=== PATIENT | male | born 1995 | race Caucasian/White ===

== ENCOUNTER 2019-01-06 00:07 | Emergency (ER) | payer BC, SELFPAY ==
[2019-01-06 00:09] VITALS: BP 142/95; PULSE 80; RESP 18; TEMP 37; O2SAT 97; BMI 39.4
--- NOTE | 2019-01-06 00:25 | ED.VISSUMM ---
- ER Visit Summary Date of Service: 01/06/19 Chief Complaint: Back pain History of Present Illness: The patient is a 23 M presenting with back pain. 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 This occurred just prior to arrival. He took no medication prior to arrival. He denies bowel or bladder incontinence. Denies numbness or weakness. He has pain with ambulation. Denies fever. Denies other complaints. Physical Examination: Vitals are stable. Patient is afebrile. Alert no acute distress. HEENT exam is unremarkable. Neck is supple. Lungs are clear and equal bilaterally. Heart is regular rate and rhythm. Abdomen is soft nontender nondistended. Back: Right paraspinal lumbar muscle tenderness, straight leg raise positive at 30 degrees on the right. Extremities are unremarkable. Skin is warm and dry. No focal neurologic deficit. Normal strength and sensation Remainder of exam is unremarkable. Emergency Department Course and Treatment: Patient was given Toradol, Norflex IM. He is given a prescription for Naprosyn and Flexeril. Advised to follow-up with his primary care physician. Advised return to ED for worsening complaints. Disposition: Discharge home Impression: Lumbar strain This note was generated with [employer] dictation software. It may contain incorrect words, spelling, and punctuation that were not noted in review of the chart prior to signing ED Disposition - Plan for ED Patient: Instructions: ED Sprain Strain Lumbar Prescriptions: Naproxen [Naprosyn] 500 mg PO BID PRN #20 tablet cycloBENZAPRine HCl [Flexeril] 10 mg PO TID PRN #20 tablet PRN Reason: Muscle Spasm Referrals: Eloy Lin III, MD [Primary Care Provider] -
[2019-01-06] MEDS: Ketorolac 60 MG/2 ML Vial IM (00:29)
--- NOTE | 2019-01-06 00:30 | ED.DEP ---
ED Disposition - Plan for ED Patient: Instructions: ED Sprain Strain Lumbar Prescriptions: Naproxen [Naprosyn] 500 mg PO BID PRN #20 tablet cycloBENZAPRine HCl [Flexeril] 10 mg PO TID PRN #20 tablet PRN Reason: Muscle Spasm Referrals: Eloy Lin III, MD [STAFF PHYSICIAN] -
[2019-01-06] MEDS: Orphenadrine 60 MG/2 ML Ampul IM (00:34)
[2019-01-06 01:07] VITALS: RESP 18
== END 2019-01-06 01:08 | disposition home or self-care (01) ==
PROVIDERS: Emergency Provider Emergency Medicine; Family Provider Family Medicine; PCP Family Medicine
DX: S39.012A Strain of muscle, fascia and tendon of lower back, initial encounter (principal); X50.1XXA Overexertion from prolonged static or awkward postures, initial encounter; Y93.E2 Activity, laundry; Y92.9 Unspecified place or not applicable
CPT/HCPCS: 96372; 99284

== ENCOUNTER 2025-06-18 13:48 | Emergency (ER) | payer BC, SELFPAY ==
[2025-06-18 13:49] VITALS: BP 161/92; PULSE 66; RESP 20; TEMP 36.2; O2SAT 100; BMI 42.2
--- NOTE | 2025-06-18 14:05 | EX.ED.GENINJ ---
HPI History of Present Illness Chief Complaint: Burn Detail of Chief Complaint: Lackey to the right hand Informant: patient Narrative Narrative: Patient presents to the emergency department with lackey to his right hand. Patient is right-hand dominant. Patient states that he was using his lawnmower and something got stuck in it so he tried to pull out the steak and accidentally touched part of the lawnmower that was hot and burned his fingers. Patient unsure of his last tetanus shot PFSH PFSH Home Medications Medication Instructions Recorded Last Taken Type cetirizine 10 mg capsule (Zyrtec) 10 mg PO DAILY 01/06/19 06/17/25 History hydrocodone-acetaminophen 5-325mg 1 tab PO Q4H PRN PRN Pain 2 days 06/18/25 Unknown Rx 5mg-325mg #10 TABLETS lisinopril 10 mg tablet 10 mg PO DAILY 06/18/25 06/17/25 History Allergy/AdvReac Type Severity Reaction Status Date / Time No Known Allergies Allergy Verified 06/18/25 13:50 Social History Smoking Status: Never smoker ROS ROS ED Review of Systems ROS Unobtainable: other Constitutional Constitutional ED: Reports lethargy; Denies chills, fever(s), sweats or weight loss Eyes Eyes: Denies blurry vision, change in vision or diplopia ENT ENT ED: Denies rhinorrhea or sore throat Cardiovascular Cardiovascular: Denies chest pain, orthopnea or racing heartbeat Respiratory/Chest Respiratory/Chest: Denies cough, dyspnea, dyspnea on exertion, orthopnea or sputum Gastrointestinal Gastrointestinal: Denies abdominal pain, diarrhea, nausea or vomiting Genitourinary Genitourinary ED: Denies dysuria, hematuria or urinary frequency Musculoskeletal Musculoskeletal: Denies arthralgias, back pain, myalgias or neck pain Integumentary Reports other Details: Lackey to right hand ; Denies abscess, Abrasions or rash Neurologic Neurologic: Denies headache(s) or weakness Psychiatric Psychiatric: Denies anxiety, depression or suicidal thoughts Endocrine Endocrinology: Denies polydipsia, polyphagia or polyuria Hematologic/Lymphatic Hematologic/Lymphatic: Denies easy bleeding, easy bruising or lymphadenopathy Allergic/Immunologic Allergic/Immunologic ED: Denies mouth swelling, tongue swelling or urticaria EXAM Physical Exam Const Vital Signs: 06/18/25 13:49 Temperature 97.2 F L Temperature Source Temporal Pulse Rate 66 Respiratory Rate 20 H Blood Pressure 161/92 H Blood Pressure Mean 115 Pulse Ox 100 Oxygen Delivery Method Room Air Positive well nourished and well developed General Appearance ED: well developed and NAD HEENT Reports TM's clear and moist mucous membranes normocephalic and atraumatic; Negative for trauma or tenderness Tympanic Membrane ED: Yes TM's clear Eyes PERRL and EOMs intact bilaterally General Eye ED: Negative for pale conjunctiva or scleral icterus Neck no lymphadenopathy, supple and no JVD General: Negative for tenderness Chest Wall inspection of chest normal and palpation of chest normal Chest: Negative for tenderness Resp normal respiratory effort and clear to auscultation bilaterally Effort and Inspection: Negative for respiratory distress or pain with movement Auscultation: Negative for rhonchi, wheezes or diminished lung sounds Cardio regular rate, regular rhythm, S1 normal heart sound, S2 normal heart sound and no murmurs Peripheral Pulses: pulses 2+ throughout GI normal to inspection, nondistended, normoactive bowel sounds, soft to palpation, non-tender, non-distended and no masses Back/Spine no CVA tenderness and no thoracic nor lumbar tenderness Extremity Extremity Narrative: Right hand-patient has areas of erythema involving the index long ring and small finger palmar aspect over areas of the distal and middle phalanx. Subtle blistering noted. Suspect first and second-degree type lackey. He has normal range of motion flexion extension of all digits. He has normal sensation. General Extremety ED: Negative for edema General Extremity: Negative for edema Neuro oriented x3, CN's II-XII intact bilaterally, no sensory deficits noted and gait normal Sensorium / Orientation: awake, alert, oriented to person, oriented to place and oriented to time Motor Exam: strength 5/5 throughout and strength abnormal Psych mental status grossly normal Skin no rashes or lesions noted and no wounds MDM MDM MDM Narrative Medical decision making narrative: Patient with lackey to his fingertips from lawnmower. Will give tetanus booster. Will apply bacitracin and ointment and clean dressing. Advised to follow-up with primary care physician 5 to 7 days. Will write a prescription for few [place] for pain. Discharge Plan Triage Chief Complaint: Burn ED Provider: Alyce Hedrick Dx/Rx/DC Orders Clinical Impression: Burn of finger of right hand Instructions: ED First- and Second-Degree Lackey ... Prescriptions: New hydrocodone-acetaminophen 5-325 mg tablet 1 tab PO Q4H PRN PRN (Reason: Pain) 2 Days Qty: 10 0RF No Action Zyrtec 10 MG capsule 10 mg PO DAILY lisinopril 10 mg tablet 10 mg PO DAILY Primary Care Provider: Quentin Mcleod Referrals: Quentin Mcleod MD [Primary Care Provider, Medical] - 5-7 Days Print Language: Kittitian Disposition Disposition: Home, Self Care
[2025-06-18 14:11] VITALS: BP 161/92; PULSE 66; RESP 20; TEMP 36.2; O2SAT 100
--- OUTSIDE RECORDS SUMMARY | 2025-06-18 14:40 | XMS RPT_ITS | CCD ---
Author Organization [facility] Care Team Providers Care Network Cabler Name Role Phone Quentin Mcleod MD Primary Care Provider Quentin Mcleod MD Primary Care Provider [facility]PART[facility] HEAD.Hallie MUNOZ Unavailable [facility]SP[facility] DEPART[facility] HEAD.ALEXANDER, Ariela A Unavailable [phone] ITZEL KIDD Referring Unavailable BRENDEN, QUENTIN Pollock Primary Care Unavailable [facility] TRANSPORT[facility] DEPARTMENT HEAD.ALEXANDER, Ariela A Unavailable [phone] WILLY ALEGRE Attending Unavailable HAAGEN, HALLIE Referring Unavailable BRENDEN, QUENTIN Pollock Primary Care Unavailable HAAGEN, HALLIE Referring Unavailable BRENDEN, QUENTIN Pollock Primary Care Unavailable HAAGEN, HALLIE Attending Unavailable BRENDEN, QUENTIN Pollock Primary Care Unavailable HAAGEN, HALLIE Attending Unavailable BRENDEN, QUENTIN Pollock Primary Care Unavailable HAAGEN, HALLIE Attending Unavailable BRENDEN, QUENTIN Pollock Primary Care Unavailable HAARTEM, HALLIE Attending Unavailable BRENDEN, QUENTIN Pollock Primary Care Unavailable BRENDEN, QUENTIN Pollock Referring Unavailable BRENDEN, QUENTIN Pollock Primary Care Unavailable BRENDEN, QUENTIN Pollock Attending Unavailable BRENDEN, QUENTIN Pollock Primary Care Unavailable ITZEL KIDD Attending Unavailable SELF Referring Unavailable BRENDEN, QUENTIN Pollock Primary Care Unavailable Allergies Allergy Classification Reported Allergen(s) Allergy Type Date of Onset Reaction(s) Facility (20 sources) Amoxicillin / Clavulanate; Translations: [AMOXICILLIN-POT CLAVULANATE] Drug Allergy 09-06-2005 [facility] Work Phone: (20 sources) Azithromycin; Translations: [AZITHROMYCIN] Drug Allergy 09-06-2005 [facility] Work Phone: (20 sources) House dust mite; Translations: [DUST MITES] Propensity to adverse reactions 09-06-2005 [facility] Work Phone: Medications Current Medications Medication Drug Class(es) Dates Sig (Normalized) Sig (Original) cetirizine hydrochloride 10 mg oral tablet (20 sources) Histamine-1 Receptor Antagonist Start: 11-27-2009 cetirizine hcl(ZYRTEC 10 MG TAB) Take one(1) tablet daily. 0 11/27/2009 Active Comment on above: Take one(1) tablet d aily. ibuprofen 200 mg oral tablet (8 sources) Nonsteroidal Anti-inflammatory Drug Start: 05-28-2024 take 200-400 mg by mouth every six hours as needed ibuprofen (MOTRIN) 200 mg tablet Take 1-2 tablets by mouth every 6 hours as needed for pain (Take with food.). 05/28/2024 Active lisinopril 10 mg oral tablet (1 source) Angiotensin Converting Enzyme Inhibitor Start: 12-11-2024 take 1 tablet by mouth once daily lisinopril (ZESTRIL) 10 mg tablet Indications: Primary hypertension Take 1 tablet by mouth once daily. 90 tablet 3 12/11/2024 Active Problems Active Problems Problem Classification Problem Date Documented Da te Episodic/Chronic Diseases of white blood cells (1 source) Leukocytosis; Translations: [Elevated white blood cell count, unspecified] Chronic Disorders of lipid metabolism (20 sources) Hyperlipidemia; Translations: [Hyperlipidemia, unspecified] Onset: 03-07-2019 Chronic Essential hypertension (1 source) Essential (primary) hypertension; Translations: [Primary hypertension] Onset: 12-11-2024 Chronic Genitourinary symptoms and ill-defined conditions (4 sources) Increased frequency of urination; Translations: [Frequency of micturition] Episodic Miscellaneous mental health disorders (14 sources) Chronic insomnia; Translations: [Psychophysiologic insomnia] Onset: 04-07-2018 Resolved: 05-27-2019 05-27-2019 Chronic Other circulatory disease (1 source) Elevated blood-pressure reading without diagnosis of hypertension; Translations: [Elevated blood-pressure reading, without diagnosis of hypertension] 10-16-2024 Episodic Other connective tissue disease (4 sources) Plantar fasciitis; Translations: [Plantar fascial fibromatosis] 05-08-2024 Episodic Other liver diseases (4 sources) Steatosis of liver; Translations: [Fatty (change of) liver, not elsewhere classified] 12-12-2023 Chronic Other liver diseases (1 source) Fatty (change of) liver, not elsewhere classified; Translations: [Hepatic steatosis] Onset: 07-19-2024 Chronic Other liver diseases (11 sources) Elevated liver enzymes level; Translations: [Abnormal levels of other serum enzymes] Episodic Other liver diseases (1 source) Abnormal levels of other serum enzymes; Translations: [Elevated liver enzymes] Onset: 07-19-2024 Episodic Other nutritional; endocrine; and metabolic disorders (6 sources) Obese class II; Translations: [Obesity, unspecified] Onset: 12-03-2018 12-03-2018 Chronic Other nutritional; endocrine; and metabolic disorders (1 source) Severe obesity; Translations: [Class 3 severe obesity with body mass index (BMI) of 45.0 to 49.9 in adult, unspecified obesity type, unspecified whether serious comorbidity present (HCC)] 10-16-2024 Chronic Other nutritional; endocrine; and metabolic disorders (1 source) Weight gain; Translations: [Abnormal weight gain] 11-01-2023 Episodic Other skin disorders (1 source) Disorder of the skin and subcutaneous tissue, unspecified; Translations: [Skin lesion] Onset: 12-11-2024 Episodic Other upper respiratory infections (3 sources) Viral upper respiratory tract infection; Translations: [Acute upper respiratory infection, unspecified] Episodic Residual codes; unclassified (1 source) Family history of diabetes mellitus; Translations: [Family history of diabetes mellitus] Episodic Screening and history of mental health and substance abuse codes (2 sources) Patient encounter status; Translations: [Encounter for screening examination for other mental health and behavioral disorders] 10-16-2024 Episodic Past or Other Problems Problem Classification Problem Date Documented Da te Episodic/Chronic Other connective tissue disease (1 source) Plantar fascial fibromatosis; Translations: [Plantar fasciitis] Onset: 06-25-2024 Episodic Other nutritional; endocrine; and metabolic disorders (17 sources) Body mass index 40+ - severely obese; Translations: [Body mass index (BMI) 40.0-44.9, adult] Onset: 12-03-2018 Resolved: 10-16-2024 11-01-2023 Chronic Other screening for suspected conditions (not mental disorders or infectious disease) (14 sources) Other specified abnormal findings of blood chemistry; Translations: [Other abnormal blood chemistry] Onset: 04-10-2018 Resolved: 05-27-2019 05-27-2019 Episodic Results Test Name Value Interpretation Reference Range [facility] EDUARDJUAN ([id number]) 1995 M Date Time Provider Department 01/08/25 QUENTIN MCLEOD [facility] During your visit today, we recorded the following information about you: Reyna Mccullough RN 01/08/2025 11:48 AM Signed Pt called in and reports he wanted to switch pharmacies. He states he is at [facility] right now, but would like to go to [facility] in [place]. I changed pharmacies in computer for Pt. I updated pharmacy in pharmacy section. I let Pt know to call [facility] and let them know he is moving to them and have them call [facility] and they can call and transfer the medication. Reyna Mccullough RN Allergies As of Date: 01/08/2025 Noted Allergy Reaction AUGMENTIN (AMOXICILLIN-POT CLAVUL*09/06/2005 DUST MITES 09/06/2005 ZITHROMAX (AZITHROMYCIN) 09/06/2005 Date Reviewed: 12/11/2024 Reviewed by: Mark Thao LPN - Fully Assessed Reason for Visit: Switch Pharmacies [Other] Prescriptions as of 01/08/2025 - lisinopril (ZESTRIL) 10 mg tablet Take 1 tablet by mouth once daily. - ibuprofen (MOTRIN) 200 mg tablet Take 1-2 tablets by mouth every 6 hours as needed for pain (Take with food.). - cetirizine hcl(ZYRTEC 10 MG TAB) Take one(1) tablet daily. Meds Comments as of 12/12/2007: Reviewed current med list, 12/12/2007. Kayy Navarro LPN Problem List As Of Date 01/08/2025 Noted Resolved Chronic insomnia [F51.04] 04/07/2018 05/27/2019 Elevated liver function tests [R79.89] 04/10/2018 05/27/2019 Adult BMI 40.0-44.9 kg/sq m (HCC) [Z68.41] 12/03/2018 10/16/2024 Hyperlipidemia with target LDL less than 130 [E*03/07/2019 Encounter Status:Closed by REYNA MCCULLOUGH on 01/08/25 [facility] CNOVon 12-11-2024 CNOV Office Visit (FAMPWS ) EDUARDSHERRIJUAN D ([id number]) 1995 M Date Time Provider Department 12/11/24 8:40 AM HALLIE FERNANDEZ [facility] During your visit today, we recorded the following information about you: Pulse Respiration Blood pressure 88/minute 16/minute 125/81 Hallie Fernandez APRN.CLOTH CARRIER 12/11/2024 1:48 PM Signed This is a 29 year old male who presents today with: Patient presents with: Recheck: 4 week BP check HISTORY OF PRESENT ILLNESS: Juan Moreau Eduard is a 29 year old male. Patient presents with: Recheck: 4 week BP check HTN Not monitoring BP at home, no BP cuff at home Will monitor BP at home from this visit Lisinopril 10 mg tab Pt. working on DASH and low sodium diet and exercises 4-5 time a week for an HR No CP/SOB/palpitations. Denies side effects to medication. Right leg lesion. Refers just found it a few weeks ago. Not painful, healing PAST MEDICAL HISTORY: PAST MEDICAL HISTORY Diagnosis Date Elevated liver function tests 04/10/2018 04/07/18: ALT 97 AST 44 ?fatty liver disease Obesity, Class III, BMI 40-49.9 (morbid obesity) 04/07/2018 PAST SURGICAL HISTORY Procedure Laterality Date ADENOIDECTOMY PRIMARY Adenoidectomy CIRCUMCISION TONSILLECTOMY PRIMARY/SECONDARY Tonsillectomy ALLERGIES Augmentin [Amoxicillin-Pot Clavulanate], Dust Mites, and Zithromax [Azithromycin] MEDICATIONS Current Outpatient Medications Medication Sig lisinopril (ZESTRIL) 10 mg tablet Take 1 tablet by mouth once daily. ibuprofen (MOTRIN) 200 mg tablet Take 1-2 tablets by mouth every 6 hours as needed for pain (Take with food.). cetirizine hcl(ZYRTEC 10 MG TAB) Take one(1) tablet daily. No current facility-administered medications for this visit. FAMILY HISTORY Problem Relation Age of Onset Asthma Maternal Grandmother other (MVP [Other]) Mother None Father None Maternal Grandfather Heart Paternal Grandmother Heart Paternal Grandfather None Sister None Brother Social History Tobacco Use Smoking status: Never Smokeless tobacco: Never Vaping Use Vaping status: Never Used Substance Use Topics Alcohol use: Yes Alcohol/week: 1.0 - 2.0 standard drink of alcohol Types: 1 - 2 Cans of Beer (12oz) per week Comment: Occassional, on the weekends Drug use: No EXAM: BP 125/81 Pulse 88 Resp 16 SpO2 98% PHYSICAL EXAM: General Appearance: Well appearing, alert, in no acute distress, well-hydrated, well nourished.. Skin: Skin color, texture, turgor normal, no suspicious rashes or lesions. Red papular lesion on the right anterior leg. Head: Normocephalic, no masses, lesions, tenderness or abnormalities. Eyes: Anicteric sclera. Extraocular movements are intact. . Ears: External ears normal, canals clear. Lungs: Lungs clear to auscultation. No wheezing, rhonchi, rales.. Heart: RRR without murmur, gallop, or rubs. No ectopy. Extremities: No deformities, edema, skin discoloration, clubbing or cyanosis. Good capillary refill. . Neurologic: Gait normal. ASSESSMENT/PLAN: 1. Primary hypertension - ICD9: 401.9, ICD10: I10 (primary diagnosis) - Controlled - Continue current medications - Recommend home blood pressure monitoring, to bring results to next visit - Encouraged sodium restriction, DASH or Mediterranean diet - Recommend regular aerobic exercise - LISINOPRIL 10 MG TABLET Recheck in 6 months. 2. Skin lesion - ICD9: 709.9, ICD10: L98.9 Appears as possible epidermal cyst. Continue to monitor area. If becomes painful or increases in size, notify provider. Discussed treatment plan and patient voices understanding. Patient's questions answered appropriately. Medications and potential side effects were discussed and patient voices understanding. Return to the office as scheduled or as needed for worsening/no improvement. Hallie Fernandez APRN.Hallie Chen APRN.CNP 12/11/2024 9:19 AM Signed 1 Follow up in 6 months for BP check up 2 Pt. will monitor BP at home with BP cuff 3 continue taking lisinopril 10 mg tab 4 follows DASH and low sodium diet Allergies As of Date: 12/11/2024 Noted Allergy Reaction AUGMENTIN (AMOXICILLIN-POT CLAVUL*09/06/2005 DUST MITES 09/06/2005 ZITHROMAX (AZITHROMYCIN) 09/06/2005 Date Reviewed: 12/11/2024 Reviewed by: Mark Thao LPN - Fully Assessed Reason for Visit: Recheck [92] Cmt: 4 week BP check Primary Visit Diagnosis:Primary hypertension [I10] Other Visit Diagnosis:Skin lesion [L98.9] Order(s):lisinopril (ZESTRIL) 10 mg tabletTake 1 tablet by mouth once daily.Disp: 90 tabletRfl: 3 Prescriptions as of 12/11/2024 - lisinopril (ZESTRIL) 10 mg tablet Take 1 tablet by mouth once daily. - ibuprofen (MOTRIN) 200 mg tablet Take 1-2 tablets by mouth every 6 hours as needed for pain (Take with food.). - cetirizine hcl(ZYRTEC 10 MG TAB) Take one(1) tablet daily. Meds Comments as of 5 (more content not included)... Normal [facility] CNOVon 11-13-2024 CNOV Office Visit (FAMPWS ) JUAN CHAPA ([id number]) 1995 M Date Time Provider Department 11/13/24 8:40 AM HALLIE FERNANDEZ During your visit today, we recorded the following information about you: Pulse Respiration Blood pressure 93/minute 16/minute 131/88 Hallie Fernandez APRN.CNP 11/13/2024 9:15 AM Signed Start the daily lisinopril. Recheck in 1 month. How to limit salt (sodium) to avoid swelling and hypertension: Keep your daily sodium intake to 2 3 4 grams Keep your daily sodium intake to 2000 3000 4000 mg DO: Read labels Keep a food diary for the first week of restriction - must include snacks! Bake or broil your foods DO NOT DRINK: V8 juice Tomato juice Canned soups DO NOT EAT: Canned food Tomato Sauce Barbecue Sauce Soy Sauce Pickles Prepared meats such as salami, corned beef, etc. Fettuccine Oh [place] con carne Beef burrito Potato salad Cottage cheese (both regular and low fat are high in sodium) [place] Two-egg omelet, ham and cheese Chop suey (not even homemade!) Macaroni and cheese (not even homemade!) Cheeseburger Fish Sticks TIPS: Plain [place] breast is OK as sandwich meat Look for low salt soups in the grocery store- usually a bit more expensive. MEAGAN Padilla Christy, APRN.CNP 11/13/2024 5:23 PM Signed This is a 29 year old male who presents today with: Patient presents with: Recheck: 4 week BP check HISTORY OF PRESENT ILLNESS: Juan Chapa is a 29 year old male. Patient presents with: Recheck: 4 week BP check HTN: Patient is compliant with meds n/a Monitors bp at home: No. Denies side effects: n/a. Chest pain: No. Dyspnea: No. Edema: No. Palpitations: No. Syncope: No. Headache: No. Dizziness: No. PAST MEDICAL HISTORY: PAST MEDICAL HISTORY Diagnosis Date Elevated liver function tests 04/10/2018 04/07/18: ALT 97 AST 44 ?fatty liver disease Obesity, Class III, BMI 40-49.9 (morbid obesity) 04/07/2018 PAST SURGICAL HISTORY Procedure Laterality Date ADENOIDECTOMY PRIMARY Adenoidectomy CIRCUMCISION TONSILLECTOMY PRIMARY/SECONDARY Tonsillectomy ALLERGIES Augmentin [Amoxicillin-Pot Clavulanate], Dust Mites, and Zithromax [Azithromycin] MEDICATIONS Current Outpatient Medications Medication Sig lisinopril (ZESTRIL) 10 mg tablet Take 1 tablet by mouth once daily. ibuprofen (MOTRIN) 200 mg tablet Take 1-2 tablets by mouth every 6 hours as needed for pain (Take with food.). cetirizine hcl(ZYRTEC 10 MG TAB) Take one(1) tablet daily. No current facility-administered medications for this visit. FAMILY HISTORY Problem Relation Age of Onset Asthma Maternal Grandmother other (MVP [Other]) Mother None Father None Maternal Grandfather Heart Paternal Grandmother Heart Paternal Grandfather None Sister None Brother Social History Tobacco Use Smoking status: Never Smokeless tobacco: Never Vaping Use Vaping status: Never Used Substance Use Topics Alcohol use: Yes Alcohol/week: 1.0 - 2.0 standard drink of alcohol Types: 1 - 2 Cans of Beer (12oz) per week Comment: Occassional, on the weekends Drug use: No EXAM: BP 131/88 Pulse 93 Resp 16 SpO2 99% PHYSICAL EXAM: General Appearance: Well appearing, alert, in no acute distress, well-hydrated, well nourished.. Skin: Skin color, texture, turgor normal, no suspicious rashes or lesions. Head: Normocephalic, no masses, lesions, tenderness or abnormalities. Eyes: Anicteric sclera. Extraocular movements are intact. . Lungs: Lungs clear to auscultation. No wheezing, rhonchi, rales.. Heart: RRR without murmur, gallop, or rubs. No ectopy. Extremities: No deformities, edema, skin discoloration, clubbing or cyanosis. Good capillary refill. . Neurologic: Gait normal. ASSESSMENT/PLAN: 1. Primary hypertension - ICD9: 401.9, ICD10: I10 - New diagnosis - Start lisinopril - Recommend home blood pressure monitoring, to bring results to next visit - Encouraged sodium restriction, DASH or Mediterranean diet - Recommend regular aerobic exercise and weight loss. - LISINOPRIL 10 MG TABLET Recheck in 1 month. Discussed treatment plan and patient voices understanding. Patient's questions answered appropriately. Medications and potential side effects were discussed and patient voices understanding. Return to the office as scheduled or as needed for worsening/no improvement. Hallie Fernandez APRN.CLOTH CARRIER Allergies As of Date: 11/13/2024 Noted Allergy Reaction AUGMENTIN (AMOXICILLIN-POT CLAVUL*09/06/2005 DUST MITES 09/06/2005 ZITHROMAX (AZITHROMYCIN) 09/06/2005 Date Reviewed: 11/13/2024 Reviewed by: Mark Thao LPN - Fully Assessed Reason for Visit: Recheck [92] Cmt: 4 week BP check Primary Visit Diagnosis:Primary hypertension [I10] Order(s):lisinopril (ZESTRIL) 10 mg tabletTake 1 tablet by m (more content not included)... Normal [facility] CBC W Auto Differential pane l (Bld)on 10-16-2024 Basophils (Bld) [#/Vol] 0.09 10*3/uL [facility] Basophils/100 WBC (Bld) 1.2 % [facility] Differential cell count method Nom (Bld) Auto [facility] Eosinophils (Bld) [#/Vol] 0.36 10*3/uL [facility] Eosinophils/100 WBC (Bld) 4.8 % [facility] Erythrocyte distribution width (RBC) [Ratio] 13.4 % 11.5 - 15.0 % [facility] Hematocrit (Bld) [Volume fraction] 46.1 % 39.0 - 51.0 % [facility] Hemoglobin (Bld) [Mass/Vol] 15.7 g/dL 13.0 - 17.0 g/dL [facility] Immature granulocytes (Bld) [#/Vol] [facility] Immature granulocytes/100 WBC (Bld) 0.1 % [facility] Lymphocytes (Bld) [#/Vol] 2.18 10*3/uL [facility] Lymphocytes/100 WBC (Bld) 29.3 % [facility] MCH (RBC) [Entitic mass] 31.1 pg 26.0 - 34.0 pg [facility] MCHC (RBC) [Mass/Vol] 34.1 g/dL 30.5 - 36.0 g/dL [facility] MCV (RBC) [Entitic vol] 91.3 fL 80.0 - 100.0 fL [facility] Monocytes (Bld) [#/Vol] 0.53 10*3/uL [facility] Monocytes/100 WBC (Bld) 7.1 % [facility] Neutrophils (Bld) [#/Vol] 4.27 10*3/uL [facility] Neutrophils/100 WBC (Bld) 57.5 % [facility] Nucleated RBC (Bld) [#/Vol] NINF [facility] Nucleated RBC/100 WBC (Bld) [Ratio] 0 % /100 WBC [facility] Platelet mean volume (Bld) [Entitic vol] 11.1 fL 9.0 - 12.7 fL [facility] Platelets (Bld) [#/Vol] 296 10*3/uL [facility] RBC (Bld) [#/Vol] 5.05 10*6/uL 4.20 - 6.0 0 m/uL [facility] WBC (Bld) [#/Vol] 7.44 10*3/uL [facility] Basophils (Bld) [#/Vol] 0.09 10*3/uL Normal <0.11 [facility] Comment on above: Order Comment: Speci men Type: BLOOD SPECIMENOrdering Facility: [facility] Address: [address] [place] [address] Performed By: #### 5 7021-8 ####[facility] LABIA [id number] [place] [address] [place] Basophils/100 WBC (Bld) 1.2 % Normal [facility] Comment on above: Order Comment: Speci men Type: BLOOD SPECIMENOrdering Facility: [facility] Address: [address] [place] [address] Performed By: #### 5 7021-8 ####[facility] LABCLIA [id number] [place] [address] [place] Differential cell count method Nom (Bld) Auto Normal [facility] Comment on above: Order Comment: Speci men Type: BLOOD SPECIMENOrdering Facility: [facility] Address: [address] [place] [address] Performed By: #### 5 7021-8 ####[facility] LABCLIA [id number] [address] [place] [address] [place] Eosinophils (Bld) [#/Vol] 0.36 10*3/uL Normal <0.46 [facility] Comment on above: Order Comment: Speci men Type: BLOOD SPECIMENOrdering Facility: [facility] Address: [address] [place] [address] Performed By: #### 5 7021-8 ####[facility] LABCLIA [id number] [address], [place] [address] [place] Eosinophils/100 WBC (Bld) 4.8 % Normal [facility] Comment on above: Order Comment: Speci men Type: BLOOD SPECIMENOrdering Facility: [facility] Address: [address] [place] [address] Performed By: #### 5 7021-8 ####[facility] LABCLIA [id number] [address], [place] [address] [place] Erythrocyte distribution width (RBC) [Ratio] 13.4 % Normal 11.5-15.0 [facility] Comment on above: Order Comment: Speci men Type: BLOOD SPECIMENOrdering Facility: [facility] Address: [address] [place] [address] Performed By: #### 5 7021-8 ####[facility] LABCLIA [id number] [address], [place] [address] [place] Hematocrit (Bld) [Volume fraction] 46.1 % Normal 39.0-51.0 [facility] Comment on above: Order Comment: Speci men Type: BLOOD SPECIMENOrdering Facility: [facility] Address: [address] [place] [address] Performed By: #### 5 7021-8 ####[facility] LABCLIA [id number] [address], [facility] [place] Hemoglobin (Bld) [Mass/Vol] 15.7 g/dL Normal 13.0-17.0 [facility] Comment on above: Order Comment: Speci men Type: BLOOD SPECIMENOrdering Facility: [facility] Address: [address] [place] [address] Performed By: #### 5 7021-8 ####[facility] LABCLIA [id number] [place] [id number] [place] Immature granulocytes (Bld) [#/Vol] 10*3/uL Normal <0.10 [facility] Comment on above: Order Comment: Speci men Type: BLOOD SPECIMENOrdering Facility: [facility] Address: [address] [place] [address] Performed By: #### 5 7021-8 ####[facility] LABCLIA [id number] [address], [place] [address] [place] Immature granulocytes/100 WBC (Bld) 0.1 % Normal [facility] Comment on above: Order Comment: Speci men Type: BLOOD SPECIMENOrdering Facility: [facility] Address: [address] [place] [address] Performed By: #### 5 7021-8 ####[facility] LABCLIA [id number] [place] [address] [place] Lymphocytes (Bld) [#/Vol] 2.18 10*3/uL Normal 1.00-4.00 [facility] Comment on above: Order Comment: Speci men Type: BLOOD SPECIMENOrdering Facility: [facility] Address: [address] [place] [address] Performed By: #### 5 7021-8 ####[facility] LABCLIA [id number] [place] [id number] [place] Lymphocytes/100 WBC (Bld) 29.3 % Normal [facility] Comment on above: Order Comment: Speci men Type: BLOOD SPECIMENOrdering Facility: [facility] Address: [address] [place] [address] Performed By: #### 5 7021-8 ####[facility]CL[facility] [id number] [place] [address] [place] MCH (RBC) [Entitic mass] 31.1 pg Normal 26.0-34.0 [facility] Comment on above: Order Comment: Speci men Type: BLOOD SPECIMENOrdering Facility: [facility] Address: [address] [place] [address] Performed By: #### 5 7021-8 ####[facility] [id number] [place] [address] [place] MCHC (RBC) [Mass/Vol] 34.1 g/dL Normal 30.5-36.0 [facility] Comment on above: Order Comment: Speci men Type: BLOOD SPECIMENOrdering Facility: [facility] Address: [address] [place] [address] Performed By: #### 5 7021-8 ####[facility] [id number] [place] [address] [place] MCV (RBC) [Entitic vol] 91.3 fL Normal 80.0-100.0 [facility] Comment on above: Order Comment: Speci men Type: BLOOD SPECIMENOrdering Facility: [facility] Address: [address] [place] [address] Performed By: #### 5 7021-8 ####[facility] [id number] [place] [address] [place] Monocytes (Bld) [#/Vol] 0.53 10*3/uL Normal <0.87 [facility] Comment on above: Order Comment: Speci men Type: BLOOD SPECIMENOrdering Facility: [facility] Address: [address] [place] [address] Performed By: #### 5 7021-8 ####[facility] [id number] [place] [address] [place] Monocytes/100 WBC (Bld) 7.1 % Normal [facility] Comment on above: Order Comment: Speci men Type: BLOOD SPECIMENOrdering Facility: [facility] Address: [address] [place] [address] Performed By: #### 5 7021-8 ####[facility] [id number] [address] [address] [place] Neutrophils (Bld) [#/Vol] 4.27 10*3/uL Normal 1.45-7.50 [facility] Comment on above: Order Comment: Speci men Type: BLOOD SPECIMENOrdering Facility: [facility] Address: [address] [place] [address] Performed By: #### 5 7021-8 ####[facility] [id number] [place] [address] [place] Neutrophils/100 WBC (Bld) 57.5 % Normal [facility] Comment on above: Order Comment: Speci men Type: BLOOD SPECIMENOrdering Facility: [facility] Address: [address] [place] [address] Performed By: #### 5 7021-8 ####[facility] [id number] [place] [address] [place] Nucleated RBC (Bld) [#/Vol] 10*3/uL Normal <0.01 [facility] Comment on above: Order Comment: Speci men Type: BLOOD SPECIMENOrdering Facility: [facility] Address: [address] [place] [address] Performed By: #### 5 7021-8 ####[facility] [id number] [place] [id number] [place] Nucleated RBC/100 WBC (Bld) [Ratio] 0.0 /100 WBC Normal [facility] Comment on above: Order Comment: Speci men Type: BLOOD SPECIMENOrdering Facility: [facility] Address: [address] [place] [address] Performed By: #### 5 7021-8 ####[facility] [id number] [address] [place] [address] [place] Platelet mean volume (Bld) [Entitic vol] 11.1 fL Normal 9.0-12.7 [facility] Comment on above: Order Comment: Speci men Type: BLOOD SPECIMENOrdering Facility: [facility] Address: [address] [place] [address] Performed By: #### 5 7021-8 ####[facility] [id number] [address] [place] [address] [place] Platelets (Bld) [#/Vol] 296 10*3/uL Normal 150-400 [facility] Comment on above: Order Comment: Speci men Type: BLOOD SPECIMENOrdering Facility: [facility] Address: [address] [place] [address] Performed By: #### 5 7021-8 ####[facility] LABIA [id number] [place] [address] [place] RBC (Bld) [#/Vol] 5.05 10*6/uL Normal 4.20-6.00 [facility] Comment on above: Order Comment: Speci men Type: BLOOD SPECIMENOrdering Facility: [facility] Address: [address] [place] [address] Performed By: #### 5 7021-8 ####[facility]CL[facility] [id number] [address], [facility] [place] WBC (Bld) [#/Vol] 7.44 10*3/uL Normal 3.70-11.00 [facility] Comment on above: Order Comment: Speci men Type: BLOOD SPECIMENOrdering Facility: [facility] Address: [address] [place] [address] Performed By: #### 5 7021-8 ####[facility]CL[facility] [id number] [place] [id number] [place] CNOVon 10-16-2024 CNOV Office Visit (FAMPWS ) EDUARDJUAN Prieto ([id number]) 1995 M Date Time Provider Department 10/16/24 1:00 PM [facility] During your visit today, we recorded the following information about you: Pulse Blood pressure Weight 87/minute 128/94 156 kg Quentin Mcleod MD 10/16/2024 1:26 PM Signed Patient presents with: Physical HPI: Patient presents today for office visit for physical. Seeing gi for his elevated liver enzymes. Work up shows fatty liver. Discussed avoiding etoh and weight loss to help. Bp is up on arrival. No symptoms MEDICATIONS: Current Outpatient Medications Medication Sig ibuprofen (MOTRIN) 200 mg tablet Take 1-2 tablets by mouth every 6 hours as needed for pain (Take with food.). cetirizine hcl(ZYRTEC 10 MG TAB) Take one(1) tablet daily. No current facility-administered medications for this visit. ALLERGIES: ALLERGIES Allergen Reactions Augmentin [Amoxicil* Dust Mites Zithromax [Azithrom* PAST MEDICAL HISTORY Diagnosis Date Elevated liver function tests 04/10/2018 04/07/18: ALT 97 AST 44 ?fatty liver disease Obesity, Class III, BMI 40-49.9 (morbid obesity) (HCC) 04/07/2018 PAST SURGICAL HISTORY Procedure Laterality Date ADENOIDECTOMY PRIMARY Adenoidectomy CIRCUMCISION TONSILLECTOMY PRIMARY/SECONDARY Tonsillectomy FAMILY HISTORY Problem Relation Age of Onset Asthma Maternal Grandmother other (MVP [Other]) Mother None Father None Maternal Grandfather Heart Paternal Grandmother Heart Paternal Grandfather None Sister None Brother Social History Tobacco Use Smoking status: Never Smokeless tobacco: Never Vaping Use Vaping status: Never Used Substance Use Topics Alcohol use: Yes Alcohol/week: 1.0 - 2.0 standard drink of alcohol Types: 1 - 2 Cans of Beer (12oz) per week Comment: Occassional, on the weekends Drug use: No Reviewed current medications, allergies, past medical history, surgical history, family history and social history today. REVIEW OF SYSTEMS GENERAL: No weight loss, malaise or fevers HEENT: Negative for frequent or significant headaches, No changes in hearing or vision, no nose bleeds or other nasal problems NECK: Negative for lumps, goiter, pain and significant neck swelling RESPIRATORY: Negative for cough, hemoptysis, wheezing, COPD, dyspnea or shortness of breath CARDIOVASCULAR: Negative for chest pain, leg swelling, hypertension, CHF or palpitations GI: No nausea, vomiting, or diarrhea : No history of dysuria, frequency or incontinence SKIN: Negative for lesions, rash, and itching HEMATOLOGY/LYMPHOLOGY: Negative for prolonged bleeding, bruising easily or swollen nodes NEURO: No history of headaches, syncope, paralysis, seizures or tremors All other reviewed and negative other than HPI. HEALTH MAINTENANCE: Reviewed health maintenance issues today and recommended the following in detail. Depression Screening Never done Anxiety Screening some recent anxiety with moving. VITALS: BP 128/94 Pulse 87 Wt (!) 156 kg (344 lb) SpO2 97% BMI 45.39 kg/m? Last 4 Encounter Wt Readings: Date: Wt: 10/16/2024 156 kg (344 lb) 07/12/2024 155.6 kg (343 lb) 05/08/2024 157.4 kg (347 lb) 12/12/2023 156.5 kg (345 lb) PHYSICAL EXAMINATION: General appearance: Well appearing, alert, in no acute distress, well-hydrated, well nourished. Skin: Skin color, texture, turgor normal, no suspicious rashes or lesions Head: Normocephalic, no masses, lesions, tenderness or abnormalities Eyes: Anicteric sclera. Pupils are equally round and reactive to light. Extraocular movements are intact. Ears: External ears normal, canals clear Nose/Sinuses: Nares normal, septum midline, mucosa normal, no drainage or sinus tenderness Oropharynx: Lips, mucosa, and tongue normal, teeth and gums normal, oropharynx normal Neck: Supple, no adenopathy; thyroid symmetric, normal size, no bruits Back: Normal exam Lungs: Lungs clear to auscultation. No wheezing, rhonchi, rales Heart: RRR without murmur, gallop, or rubs. No ectopy Abdomen: Normal abdominal exam, Abdomen soft, non-tender. Bowel sounds normal. No masses, organomegaly Extremities: No deformities, edema, skin discoloration, clubbing or cyanosis. Good capillary refill. Musculoskeletal: No joint swelling, deformity, or tenderness Peripheral pulses: Normal Neuro: Gait normal. Reflexes normal and symmetric. Sensation grossly intact. ASSESSMENT/PLAN: 1. Well adult exam - ICD9: V70.0, ICD10: Z00.00 (primary diagnosis) - Counseled on healthy diet and regular exercise 2. Encounter for screening examination for other mental health and behavioral disorders - ICD9: V79.8, ICD10: Z13.39 - ANXIETY SCREENING 3. Hyperlipidemia with target LDL less than 130 - ICD9: 272.4, ICD10: E78.5 - Control undetermined, due for labs - check labs. 4. Class (more content not included)... Normal [facility] Comprehensive metabolic 2000 panelon 10-16-2024 Albumin [Mass/Vol] 4.4 g/dL Normal 3.9-4.9 [facility] Comment on above: Order Comment: Speci men Type: BLOOD SPECIMENOrdering Facility: [facility] Address: [address] [place] [address] Performed By: #### 2 4331-1, 3, 92876-6 ####[facility] [id number] [place] [address] [place] ALP [Catalytic activity/Vol] 81 U/L Normal 38-113 [facility] Comment on above: Order Comment: Speci men Type: BLOOD SPECIMENOrdering Facility: [facility] Address: [address] [place] [address] Performed By: #### 2 4331-1, 3015-3, 68637-7 ####[facility] LABIA [id number] [place] [address] [place] ALT [Catalytic activity/Vol] 87 U/L High 10-54 [facility] Comment on above: Order Comment: Speci men Type: BLOOD SPECIMENOrdering Facility: [facility] Address: [address] [place] [address] Performed By: #### 2 4331-1, 3015-3, ####[facility]CLIA [id number] [place] [id number] [place] Anion gap [Moles/Vol] 12 mmol/L Normal 8-15 [facility] Comment on above: Order Comment: Speci men Type: BLOOD SPECIMENOrdering Facility: [facility] Address: [address] [place] [address] Performed By: #### 2 4331-1, 3, ####[facility]CL[facility] [id number] [place] [id number] [place] AST [Catalytic activity/Vol] 54 U/L High 14-40 [facility] Comment on above: Order Comment: Speci men Type: BLOOD SPECIMENOrdering Facility: [facility] Address: [address] [place] [address] Result Comment: Resu lts may be falsely increased due to interference from hemolysis. Suggest reorder as clinically indicated. Performed By: #### 2 4331-1, 3, ####[facility]CLIA [id number] [place] [id number] [place] Bilirubin [Mass/Vol] 0.9 mg/dL Normal 0.2-1.3 [facility] Comment on above: Order Comment: Speci men Type: BLOOD SPECIMENOrdering Facility: [facility] Address: [address] [place], [place] [address] Performed By: #### 2 4331-1, 3015-3, ####[facility] LABIA [id number] [address] [address] [place] Calcium [Mass/Vol] 9.5 mg/dL Normal 8.5-10.2 [facility] Comment on above: Order Comment: Speci men Type: BLOOD SPECIMENOrdering Facility: [facility] Address: [address] [place], [place] [address] Performed By: #### 2 4331-1, 3015-3, ####[facility]CLIA [id number] [address] [address] [place] Chloride [Moles/Vol] 102 mmol/L Normal 98-107 [facility] Comment on above: Order Comment: Speci men Type: BLOOD SPECIMENOrdering Facility: [facility] Address: [address] [place], [place] [address] Performed By: #### 2 4331-1, 3, ####[facility]CLIA [id number] [place] [id number] [place] CO2 [Moles/Vol] 24 mmol/L Normal 22-30 [facility] Comment on above: Order Comment: Speci men Type: BLOOD SPECIMENOrdering Facility: [facility] Address: [address] [place], [place] [address] Performed By: #### 2 4331-1, 3, ####[facility] LABIA [id number] [place] [address] [place] Creatinine [Mass/Vol] 0.87 mg/dL Normal 0.73-1.22 [facility] Comment on above: Order Comment: Speci men Type: BLOOD SPECIMENOrdering Facility: [facility] Address: [address] [place], [place] [address] Performed By: #### 2 4331-1, 3015-3, 37419-3 ####[facility] LABIA [id number] [address] [address] [place] Creatinine and Glomerular filtration rate.predicted panel (S/P/Bld) 120 mL/min/1.73m??? Normal >=60 [facility] Comment on above: Order Comment: Speci men Type: BLOOD SPECIMENOrdering Facility: [facility] Address: [address] [place] [address] Result Comment: Lana mated Glomerular Filtration Rate (eGFR) is calculated using the 2020 CKD-EPI creatinine equation. This equation utilizes serum creatinine, sex, and age as parameters. The creatinine assay has traceable calibration to isotope dilution-mass spectrometry. Refer to KDIGO guidelines for clinical interpretation. In patients with unstable renal function, e.g. those with acute kidney injury, the eGFR may not accurately reflect actual GFR. Performed By: #### 2 4331-1, 3015-3, ####[facility] LABCLIA [id number] [address] [address] [place] Glucose [Mass/Vol] 91 mg/dL Normal 74-99 [facility] Comment on above: Order Comment: Speci men Type: BLOOD SPECIMENOrdering Facility: [facility] Address: [address] [place] [address] Result Comment: The [place] Diabetes Association (ADA) provides guidance for cutoff values for fasting glucose and random glucose. The ADA defines fasting as no caloric intake for at least 8 hours. Fasting plasma glucose results between 100 to 125 mg/dL indicate increased risk for diabetes (prediabetes). Fasting plasma glucose results greater than or equal to 126 mg/dL meet the criteria for diagnosis of diabetes. In the absence of unequivocal hyperglycemia, results should be confirmed by repeat testing. In a patient with classic symptoms of hyperglycemia or hyperglycemic crisis, random plasma glucose results greater than or equal to 200 mg/dL meet the criteria for diagnosis of diabetes. Reference: Standards of Medical Care in Diabetes 2016, [place] [employer]. Diabetes Care. 2016.39(Suppl 1). Performed By: #### 2 4331-1, 3015-3, ####[facility] LABCLIA [id number] [address] [address] [place] Potassium [Moles/Vol] 4.6 mmol/L Normal 3.7-5.1 [facility] Comment on above: Order Comment: Speci men Type: BLOOD SPECIMENOrdering Facility: [facility] Address: [address] [place] [id number] Performed By: #### 2 4331-1, 3015-3, 66133-8 ####[facility] LABIA [id number] [address] [address] [place] Protein [Mass/Vol] 7.5 g/dL Normal 6.3-8.0 [facility] Comment on above: Order Comment: Speci men Type: BLOOD SPECIMENOrdering Facility: [facility] Address: [address] [place] [address] Performed By: #### 2 4331-1, 3015-3, ####[facility] LABIA [id number] [address] [address] [place] Sodium [Moles/Vol] 138 mmol/L Normal 136-144 [facility] Comment on above: Order Comment: Speci men Type: BLOOD SPECIMENOrdering Facility: [facility] Address: [address] [place] [address] Performed By: #### 2 4331-1, 3, ####[facility] [id number] [address] [address] [place] Urea nitrogen [Mass/Vol] 14 mg/dL Normal 9-24 [facility] Comment on above: Order Comment: Speci men Type: BLOOD SPECIMENOrdering Facility: [facility] Address: [address] [place] [address] Performed By: #### 2 4331-1, 3, 52128-2 ####[facility] LABIA [id number] [address] [address] [place] Lipid 1996 panelon 5 Cholesterol [Mass/Vol] 184 mg/dL Normal <200 [facility] Comment on above: Order Comment: Speci men Type: BLOOD SPECIMENOrdering Facility: [facility] Address: [address] [place], [place] [address] Result Comment: <200 mg/dL, Desirable 200-239 mg/dL, Borderline high >239 mg/dL, High Performed By: #### 2 4331-1, 3015-3, ####[facility] LABCLIA [id number] [facility] [place] [id number] [address] [place] Cholesterol in HDL [Mass/Vol] 43 mg/dL Normal >39 [facility] Comment on above: Order Comment: Speci men Type: BLOOD SPECIMENOrdering Facility: [facility] Address: [address] [place] [address] Result Comment: 40-5 9 mg/dL, Acceptable >59 mg/dL, High: Negative risk factor for coronary heart disease <40 mg/dL, Low: Positive risk factor for coronary heart disease Performed By: #### 2 4331-1, 3015-09, ####[facility]CL[facility] [id number] [facility] [address] [place] [address] [place] Cholesterol in LDL [Mass/Vol] 108 mg/dL High <100 [facility] Comment on above: Order Comment: Reneai men Type: BLOOD SPECIMENOrdering Facility: [facility] Address: [address] [place] [address] Result Comment: <100 mg/dL, Optimal 100-129 mg/dL, Near optimal/above optimal 130-159 mg/dL, Borderline high 160-189 mg/dL, High >189 mg/dL, Very high Secondary prevention optimal LDL Cholesterol levels are recommended to be < 70 mg/dL Performed By: #### 2 4331-1, 3015-09, ####[facility] LABCLIA [id number] [facility] [place] [id number], [place] [address] [facility] [place] Cholesterol in LDL/Cholesterol in HDL [Mass ratio] 2.51 {ratio} Normal <2.54 [facility] Comment on above: Order Comment: Speci men Type: BLOOD SPECIMENOrdering Facility: [facility] Address: [address] [place] [address] Result Comment: Refe rence: 1. National Cholesterol Education Program ATP III Guideline At-A-Glance Quick Desk Reference: National Heart, Lung, and Blood [place]. National Institutes of Health. 2001: NIH Publication No. 01-3305. 2. An International Atherosclerosis Society position paper: global recommendations for the management of dyslipidemia: executive summary, Atherosclerosis. 2014: 232(2):410-413. Performed By: #### 2 4331-1, 3015-3, ####[facility] LABCLIA [id number] [address] [place] [address] [place] Cholesterol in VLDL [Mass/Vol] 33 mg/dL High <30 [facility] Comment on above: Order Comment: Speci men Type: BLOOD SPECIMENOrdering Facility: [facility] Address: [address] [place] [address] Performed By: #### 2 4331-1, 3015-3, ####[facility] LABCLIA [id number] [address] [address] [place] Cholesterol non HDL [Mass/Vol] 141 mg/dL High <130 [facility] Comment on above: Order Comment: Speci men Type: BLOOD SPECIMENOrdering Facility: [facility] Address: [address] [place] [address] Result Comment: <130 mg/dL, Optimal 130-159 mg/dL, Near optimal/above optimal 160-189 mg/dL, Borderline high 190-219 mg/dL, High >219 mg/dL, Very high Secondary prevention optimal non HDL Cholesterol levels are recommended to be <100 mg/dL Performed By: #### 2 4331-1, 3015-3, ####[facility] LABCLIA [id number] [address] [place] [address] [place] Cholesterol.total/Chol esterol in HDL [Mass ratio] 4.28 {ratio} Normal <5.10 [facility] Comment on above: Order Comment: Speci men Type: BLOOD SPECIMENOrdering Facility: [facility] Address: [address] [place] [id number] Performed By: #### 2 4331-1, 3015-3, ####[facility] LABCLIA [id number] [facility] [address] [place] [address] [place] FASTING TIME 12 hrs Normal [facility] Comment on above: Order Comment: Speci men Type: BLOOD SPECIMENOrdering Facility: [facility] Address: [address] [place], [place] [address] Performed By: #### 2 4331-1, 3016-3, 95872-2 ####[facility]CLIA [id number] [facility] [address] [place] [address] [place] Triglyceride [Mass/Vol] 163 mg/dL High <150 [facility] Comment on above: Order Comment: Speci men Type: BLOOD SPECIMENOrdering Facility: [facility] Address: [address] [place] [address] Result Comment: <150 mg/dL, Normal 150-199 mg/dL, Borderline high 200-499 mg/dL, High >499 mg/dL, Very high Performed By: #### 2 4331-1, 6-3, ####[facility] LABIA [id number] [address] [place] [address] [place] TSH SerPl-aCncon 10-16-2024 TSH Qn 1.620 m[IU]/L Normal 0.270-4.200 [facility] Comment on above: Order Comment: Speci men Type: BLOOD SPECIMENOrdering Facility: [facility] Address: [address] [place] [address] Performed By: #### 2 4331-1, 6-3, ####[facility] LABCLIA [id number] [address] [place] [address] [place] Hepatic function 2000 panelo n 07-19-2024 Albumin [Mass/Vol] 4.1 g/dL Normal 3.2-5.0 [facility] Comment on above: Order Comment: Speci men Type: BLOOD SPECIMEN [facility] Address: [address] [place] [address] Performed By: #### 2 4325-3 #### [facility] CLIA [id number] [address] [place], [place] [address] [place] ALP [Catalytic activity/Vol] 85 U/L Normal 45-117 [facility] Comment on above: Order Comment: Speci men Type: BLOOD SPECIMEN [facility] Address: [address] [place] [address] Performed By: #### 2 4325-3 #### [facility] CLIA [id number] [address] [place] [address] [place] ALT [Catalytic activity/Vol] 105 U/L High 13-61 [facility] Comment on above: Order Comment: Speci men Type: BLOOD SPECIMEN [facility] Address: [address] [place] [address] Result Comment: Resu lts may be falsely depressed after the administration of Sulfasalazine and/or Sulfapyridine. Performed By: #### 2 4325-3 #### [facility] CLIA [id number] [address] [place] [address] [place] AST [Catalytic activity/Vol] 46 U/L High 8-34 [facility] Comment on above: Order Comment: Speci men Type: BLOOD SPECIMEN [facility] Address: [address] [place] [address] Result Comment: Resu lts may be falsely depressed after the administration of Sulfasalazine and/or Sulfapyridine. Performed By: #### 2 4325-3 #### [facility] CLIA [id number] [address] [place] [address] [place] Bilirubin [Mass/Vol] 1.0 mg/dL Normal 0.2-1.0 [facility] Comment on above: Order Comment: Speci men Type: BLOOD SPECIMEN Ordering Facility: [facility] Address: [address] [place] [address] Performed By: #### 2 4325-3 #### [facility] CLIA [id number] [address] [place] [address] [place] Bilirubin.conjugated [Mass/Vol] 0.3 mg/dL Normal 0.0-0.4 [facility] Comment on above: Order Comment: Speci men Type: BLOOD SPECIMEN Ordering Facility: [facility] Address: [address] [place] [address] Performed By: #### 2 4325-3 #### [facility] CLIA [id number] [address] [place] [address] [place] Protein [Mass/Vol] 7.9 g/dL Normal 6.0-8.5 [facility] Comment on above: Order Comment: Speci men Type: BLOOD SPECIMEN Ordering Facility: [facility] Address: [address] [place] [address] Performed By: #### 2 4325-3 #### [facility] CLIA [id number] [address] [place], [place] [id number] [place] LIVER FIBROSIS AND ACTIVITYo n 07-19-2024 [id number]-[id number] [Mass/Vol] 147 mg/dL Normal 80-290 [facility] Comment on above: Order Comment: Speci men Type: BLOOD SPECIMEN Ordering Facility: [facility] Address: [address] [place] [address] Performed By: #### L IVFIB #### [facility] CLIA [id number] [address] [place] [address] [place] ALT [Catalytic activity/Vol] 99 U/L High 10-50 [facility] Comment on above: Order Comment: Speci men Type: BLOOD SPECIMEN Ordering Facility: [facility] Address: [address] [place] [address] Performed By: #### L IVFIB #### [facility] CLIA [id number] [address] [place] [address] [place] Apolipoprotein A-I [Mass/Vol] 154 mg/dL Normal >114 [facility] Comment on above: Order Comment: Speci men Type: BLOOD SPECIMEN Ordering Facility: [facility] Address: [address] [place] [address] Performed By: #### L IVFIB #### [facility] CLIA [id number] [address] [place] [address] [place] Bilirubin [Mass/Vol] 0.9 mg/dL Normal 0.2-1.3 [facility] Comment on above: Order Comment: Speci men Type: BLOOD SPECIMEN Ordering Facility: [facility] Address: [address] [place] [address] Performed By: #### L IVFIB #### [facility] CLIA [id number] [address] [place] [address] [place] FIBROSIS INTERPRETATION No Fibrosis Normal [facility] Comment on above: Order Comment: Speci men Type: BLOOD SPECIMEN Ordering Facility: [facility] Address: [address] [place] [address] Result Comment: Fibr osis Interpretation Table: FibroTest Score: >=0 and <=0.21 - Metavir Score: F0 No Fibrosis FibroTest Score: >0.21 and <=0.27 - Metavir Score: F0-F1 No Fibrosis FibroTest Score: >0.27 and <=0.31 - Metavir Score: F1 Minimal Fibrosis FibroTest Score: >0.31 and <=0.48 - Metavir Score: F1-F2 Minimal Fibrosis FibroTest Score: >0.48 and <=0.58- Metavir Score: F2 Moderate Fibrosis FibroTest Score: >0.58 and <=0.72 - Metavir Score: F3 Advanced Fibrosis FibroTest Score: >0.72 and <=0.74 - Metavir Score: F3-F4 Advanced Fibrosis FibroTest Score: >0.74 and <=1.00- Metavir Score: F4 Severe Fibrosis Performed By: #### L IVFIB #### [facility] CLIA [id number] [address] [place] [address] [place] Fibrosis stage Ql F0 Normal [facility] Comment on above: Order Comment: Speci men Type: BLOOD SPECIMEN Ordering Facility: [facility] Address: [address] [place] [address] Performed By: #### L IVFIB #### [facility] CLIA [id number] [address] [place] [address] [place] Gamma glutamyl transferase [Catalytic activity/Vol] 32 U/L Normal 10-71 [facility] Comment on above: Order Comment: Speci men Type: BLOOD SPECIMEN Ordering Facility: [facility] Address: [address] [place] [address] Performed By: #### L IVFIB #### [facility] CLIA [id number] [address] [place] [address] [place] Haptoglobin [Mass/Vol] 185 mg/dL Normal 31-238 [facility] Comment on above: Order Comment: Speci men Type: BLOOD SPECIMEN Ordering Facility: [facility] Address: [address] [place] [address] Performed By: #### L IVFIB #### [facility] CLIA [id number] [address] [place] [address] [place] NECROINFLAM ACTIVITY INTERP Minimal Activity Normal [facility] Comment on above: Order Comment: Speci men Type: BLOOD SPECIMEN Ordering Facility: [facility] Address: [address] [place] [address] Result Comment: Necr oinflammatory Activity Interpretation Table: ActiTest Score: >=0 and <=0.17 - Metavir Score: A0 No activity ActiTest Score: >0.17 and <=0.29 - Metavir Score: A0-A1 No activity ActiTest Score: >0.29 and <=0.36 - Metavir Score: A1 Minimal activity ActiTest Score: >0.36 and <=0.52 - Metavir Score: A1-A2 Minimal activity ActiTest Score: >0.52 and <=0.60 - Metavir Score: A2 Significant activity ActiTest Score: >0.60 and <=0.62 - Metavir Score: A2-A3 Significant activity ActiTest Score: >0.62 and <=1.00 - Metavir Score: A3 Severe activity Performed By: #### L IVFIB #### [facility] CLIA [id number] [address] [place] [address] [place] Necroinflammatory activity grade Ql A1-A2 [address] [facility] Comment on above: Order Comment: Speci men Type: BLOOD SPECIMEN Ordering Facility: [facility] Address: [address] [place] [address] Performed By: #### L IVFIB #### [facility] CLIA [id number] [address] [place] [address] [place] CNOVon 07-12-2024 CNOV Office Visit ([facility] ) JUAN CHAPA ([id number]) 1995 Date Time Provider Department 07/12/24 9:15 AM ITZEL KIDD [facility] During your visit today, we recorded the following information about you: Pulse Blood pressure Weight Height 80/minute 126/84 155.6 kg 1.854 m Itzel Kidd, TRANSPORTATION DEPARTMENT HEAD.[facility] 07/12/2024 9:15 AM Signed CHIEF COMPLAINT: Patient presents with: Elevated LFT's: Labs 12/14/23 HPI Juan Chapa is a 28 year old male here today for Elevated LFT's (Labs 12/14/23). Liver fibrosis panel showed F0 and Fibroscan showed kPa 23.2 with CAP 313. He did not want to get a liver biopsy at the time. Liver work up for autoimmune causes was negative. Currently he is feeling well. Denies any abdominal pain, n/v, jaundice, easy bruising or bleeding. He has lost a couple pounds. He has cut out alcohol. Current Outpatient Medications Medication Sig ibuprofen (MOTRIN) 200 mg tablet Take 1-2 tablets by mouth every 6 hours as needed for pain (Take with food.). cetirizine hcl(ZYRTEC 10 MG TAB) Take one(1) tablet daily. No current facility-administered medications for this visit. ALLERGIES Allergen Reactions Augmentin [Amoxicil* Dust Mites Zithromax [Azithrom* Social History Tobacco Use Smoking status: Never Smokeless tobacco: Never Vaping Use Vaping status: Never Used Substance Use Topics Alcohol use: Yes Alcohol/week: 1.0 - 2.0 standard drink of alcohol Types: 1 - 2 Cans of Beer (12oz) per week Comment: Occassional, on the weekends Drug use: No PAST MEDICAL HISTORY Diagnosis Date Elevated liver function tests 04/10/2018 04/07/18: ALT 97 AST 44 ?fatty liver disease Obesity, Class III, BMI 40-49.9 (morbid obesity) (HCC) 04/07/2018 PAST SURGICAL HISTORY Procedure Laterality Date ADENOIDECTOMY PRIMARY Adenoidectomy CIRCUMCISION TONSILLECTOMY PRIMARY/SECONDARY Tonsillectomy FAMILY HISTORY Problem Relation Age of Onset Asthma Maternal Grandmother other (MVP [Other]) Mother None Father None Maternal Grandfather Heart Paternal Grandmother Heart Paternal Grandfather None Sister None Brother REVIEW OF SYSTEMS Review of Systems All other systems reviewed and are negative. PHYSICAL EXAM Ht 6' 1" (1.85m) Wt 343 lb (155.6kg) BMI 45.26 kg/(m2). Physical Exam Constitutional: Appearance: Normal appearance. He is morbidly obese. HENT: Head: Normocephalic and atraumatic. Eyes: General: No scleral icterus. Cardiovascular: Rate and Rhythm: Normal rate and regular rhythm. Heart sounds: Normal heart sounds. Pulmonary: Breath sounds: Normal breath sounds. Abdominal: General: Abdomen is protuberant. Bowel sounds are normal. There is no distension. Palpations: Abdomen is soft. Tenderness: There is no abdominal tenderness. There is no guarding or rebound. Skin: General: Skin is warm and dry. Coloration: Skin is not jaundiced. Neurological: Mental Status: He is alert and oriented to person, place, and time. Psychiatric: Mood and Affect: Mood normal. Behavior: Behavior normal. ASSESSMENT: (R74.8) Elevated liver enzymes (primary encounter diagnosis) (K76.0) Hepatic steatosis 1. Hepatic steatosis - we discussed liver biopsy (risks, benefits) in detail and he would like to hold off for now and see what the repeat labs show first. - continue with weight loss efforts, increased exercise, and dietary changes - HEPATIC FUNCTION PNL; Future - LIVER FIBROSIS AND ACTIVITY; Future 2. Elevated liver enzymes - HEPATIC FUNCTION PNL; Future - LIVER FIBROSIS AND ACTIVITY; Future Follow up in office 1 year Itzel Kidd APRN.CNP July 12, 2024 9:13 AM Referring Provider: SELF [200] Allergies As of Date: 07/12/2024 Noted Allergy Reaction AUGMENTIN (AMOXICILLIN-POT CLAVUL*09/06/2005 DUST MITES 09/06/2005 ZITHROMAX (AZITHROMYCIN) 09/06/2005 Date Reviewed: 07/12/2024 Reviewed by: Itzel Kidd APRN.CNP - Fully Assessed Reason for Visit: Elevated LFT's [Other] Cmt: Labs 12/14/23 Primary Visit Diagnosis:Elevated liver enzymes [R74.8] Other Visit Diagnosis:Hepatic steatosis [K76.0] Order(s):HEPATIC FUNCTION PNL [SQHFP] Order #: [id number] FUTURE LIVER FIBROSIS AND ACTIVITY [SQLIVFIB] Order #: [id number] FUTURE Prescriptions as of 07/12/2024 - ibuprofen (MOTRIN) 200 mg tablet Take 1-2 tablets by mouth every 6 hours as needed for pain (Take with food.). - cetirizine hcl(ZYRTEC 10 MG TAB) Take one(1) tablet daily. Meds Comments as of 12/12/2007: Reviewed current med list, 12/12/2007. Kayy Navarro LPN Problem List As Of Date 07/12/2024 Noted Resolved Chronic insomnia [F51.04] 04/07/2018 05/27/2019 Elevated liver function tests [R79.89] 04/10/2018 05/27/2019 Adult BMI 40.0-44.9 kg/sq m (HCC) [Z68.41] 12/03/2018 Hyperlipidemia with target LDL less than 130 [E*03/07/2019 Level of Service: OFFICE/OUTPATIENT (more content not included)... Normal [facility] CNOVon 06-25-2024 CNOV Office Visit (PODIWS ) JUAN CHAPA ([id number]) 1995 M Date Time Provider Department 06/25/24 10:45 AM WILLY ALEGRE During your visit today, we recorded the following information about you: Amina Aguero LPN 06/25/2024 11:12 AM Signed AMB ROOMING INTAKE FLOWSHEET DATA Pain Pain Level: 6 Pain Location: Foot-Left Description: Aching Duration Amount of Time: 1 Duration Units: Minutes Frequency: Intermittent Intervention/Comfort measure: Medication Patient presents with: Left Foot - New, Pain, Numbness FELIX Shelby Matthew 06/25/2024 11:12 AM Signed Consultation requested by Dr. Fernandez for an opinion regarding left heel pain. My final recommendations will be communicated back to the requesting physician by way of shared Medical record or letter to requesting physician via US mail. Initial Podiatric Office Visit: Chief Complaint: This 28 year old male who presents with chief complaint:left heel pain HPI Patient presents to clinic for evaluation of left foot For the past month, he has been experiencing pain in the left heel. The pain is most severe following periods of rest (when he gets up and starts walking) As he starts walking, the pain will lessen Currently, managing the pain with ankle brace, taking ibuprofen, some stretching. Current treatment does provide some relief. PAIN EVALUATION 06/18/2024 1007 Pain Level: 6 Pain Location: Foot-Left Description: Aching Duration Amount of Time: 1 Duration Units: Minutes Frequency: Intermittent Intervention/Comfort measure: Medication Hemoglobin A1C (%) Date Value 08/23/2022 5.4 PCP: Quentin Mcleod MD PAST MEDICAL HISTORY Diagnosis Date Elevated liver function tests 04/10/2018 04/07/18: ALT 97 AST 44 ?fatty liver disease Obesity, Class III, BMI 40-49.9 (morbid obesity) (HCC) 04/07/2018 Current Outpatient Medications Medication Sig ibuprofen (MOTRIN) 200 mg tablet Take 1-2 tablets by mouth every 6 hours as needed for pain (Take with food.). cetirizine hcl(ZYRTEC 10 MG TAB) Take one(1) tablet daily. No current facility-administered medications for this visit. ALLERGIES Allergen Reactions Augmentin [Amoxicil* Dust Mites Zithromax [Azithrom* PAST SURGICAL HISTORY Procedure Laterality Date ADENOIDECTOMY PRIMARY Adenoidectomy CIRCUMCISION TONSILLECTOMY PRIMARY/SECONDARY Tonsillectomy FAMILY HISTORY Problem Relation Age of Onset Asthma Maternal Grandmother other (MVP [Other]) Mother None Father None Maternal Grandfather Heart Paternal Grandmother Heart Paternal Grandfather None Sister None Brother Social History Tobacco Use Smoking status: Never Smokeless tobacco: Never Vaping Use Vaping status: Never Used Substance Use Topics Alcohol use: Yes Alcohol/week: 1.0 - 2.0 standard drink of alcohol Types: 1 - 2 Cans of Beer (12oz) per week Comment: Occassional, on the weekends Drug use: No REVIEW OF SYSTEMS GENERAL: Negative for Malaise, significant weight loss, fever RESPIRATORY: Negative for cough, wheezing and shortness of breath CARDIOVASCULAR: Negative for chest pain, leg swelling and palpitations GI: Negative for abdominal discomfort, blood in stools or black stools and change in bowel habits : Negative for dysuria, frequency and incontinence MUSCULOSKELETAL: Negative for joint pain or swelling, back pain, and muscle pain. SKIN: Negative for lesions, rash, and itching. HEMATOLOGY/LYMPHOLOGY Negative for prolonged bleeding, bruising easily, and swollen nodes. ENDOCRINE: Negative for cold or heat intolerance, polyuria, polydipsia and goiter. NEURO: negative Physical Exam: Constitutional: Pt is a well developed 28 year old male who is alert, oriented and cooperative Eyes: Following during examination. No redness or drainage. Respiratory: RR normal and nonlabored. Even breathing. No evidence of distress or shortness of breath. Psychology: Patient is engaged during conversation. Normal affect and mood. Does not appear depressed or anxious during encounter. Vascular: Dorsalis pedis and posterior tibial pulses palpable as b/l Capillary Fill time < 5 seconds to digits 1-5 b/l Skin temperature warm to warm proximal to distal b/l Hair growth present to digits Neurological: intact light touch/epicritic sensation b/l intact protective sensation no significant neurological deficits Dermatological: Nails 1-5 b/l appear normal. Webspaces clean and dry 1-4 b/l. Skin appears well hydrated and supple. good color, texture, turgor. No open lesions present. No callosities present. Musculoskeletal/Orthop aedic: Patient has pain to palpation of left plantar medial calcaneal tubercle Foot type is slightly pronated structurally AJ ROM is full with knee extended and flexed 1st MPJ is full when loaded and no pain or crepi (more content not included)... Normal [facility] CNPNon 06-03-2024 CNPN Telephone (FAMPWS) JUAN CHAPA ([id number]) 1995 M Date Time Provider Department 06/03/24 CHNIYERE BOYKIN [facility] During your visit today, we recorded the following information about you: Chinyere Boykin PA-C 06/03/2024 8:38 AM Signed Let patient know that xray confirm smal heel spur. Continue with seeing podiatry. Jose Schwartz LPN 06/03/2024 9:02 AM Signed Left message for pt to contact office. FELIX Weinberg Sherrie, RN 06/03/2024 11:27 AM Signed Patient returned call and given provider's message below and patient verbalized understanding. Sandra Menendez RN Allergies As of Date: 06/03/2024 Noted Allergy Reaction AUGMENTIN (AMOXICILLIN-POT CLAVUL*09/06/2005 DUST MITES 09/06/2005 ZITHROMAX (AZITHROMYCIN) 09/06/2005 Date Reviewed: 05/28/2024 Reviewed by: Mark Thao LPN - Fully Assessed Reason for Visit: Results [95] Prescriptions as of 06/03/2024 - ibuprofen (MOTRIN) 200 mg tablet Take 1-2 tablets by mouth every 6 hours as needed for pain (Take with food.). - cetirizine hcl(ZYRTEC 10 MG TAB) Take one(1) tablet daily. Meds Comments as of 12/12/2007: Reviewed current med list, 12/12/2007. Kayy Olsoner [facility] Problem List As Of Date 06/03/2024 Noted Resolved Chronic insomnia [F51.04] 04/07/2018 05/27/2019 Elevated liver function tests [R79.89] 04/10/2018 05/27/2019 Adult BMI 40.0-44.9 kg/sq m (HCC) [Z68.41] 12/03/2018 Hyperlipidemia with target LDL less than 130 [E*03/07/2019 Encounter Status:Closed by SIA MENENDEZ on 06/03/24 [facility] CNOVon 05-28-2024 CNOV Office Visit (FAMPWS ) JUAN CHAPA ([id number]) 1995 Date Time Provider Department 05/28/24 9:40 AM HALLIE FERNANDEZ During your visit today, we recorded the following information about you: Pulse Respiration Blood pressure 83/minute 16/minute 138/96 Hallie Fernandez APRN.CLOTH CARRIER 05/29/2024 10:25 PM Signed This is a 28 year old male who presents today with: Patient presents with: Recheck: Follow up- L foot pain, continuing HISTORY OF PRESENT ILLNESS: Juan Chapa is a 28 year old male. Patient presents with: Recheck: Follow up- L foot pain, continuing Pt presents today with complaint of ongoing left foot pain. He was seen on 05/08/24. Dx w/ plantar fasciitis. He did a course of anti-inflammatories and ice. He also did the rolling. He also started wearing a splint. Continues with pain in the left foot, although a little better today. PAST MEDICAL HISTORY: PAST MEDICAL HISTORY Diagnosis Date Elevated liver function tests 04/10/2018 04/07/18: ALT 97 AST 44 ?fatty liver disease Obesity, Class III, BMI 40-49.9 (morbid obesity) (HCC) 04/07/2018 PAST SURGICAL HISTORY Procedure Laterality Date ADENOIDECTOMY PRIMARY Adenoidectomy CIRCUMCISION TONSILLECTOMY PRIMARY/SECONDARY Tonsillectomy ALLERGIES Augmentin [Amoxicillin-Pot Clavulanate], Dust Mites, and Zithromax [Azithromycin] MEDICATIONS Current Outpatient Medications Medication Sig ibuprofen (MOTRIN) 200 mg tablet Take 1-2 tablets by mouth every 6 hours as needed for pain (Take with food.). cetirizine hcl(ZYRTEC 10 MG TAB) Take one(1) tablet daily. No current facility-administered medications for this visit. FAMILY HISTORY Problem Relation Age of Onset Asthma Maternal Grandmother other (MVP [Other]) Mother None Father None Maternal Grandfather Heart Paternal Grandmother Heart Paternal Grandfather None Sister None Brother Social History Tobacco Use Smoking status: Never Smokeless tobacco: Never Vaping Use Vaping status: Never Used Substance Use Topics Alcohol use: Yes Alcohol/week: 1.0 - 2.0 standard drink of alcohol Types: 1 - 2 Cans of Beer (12oz) per week Comment: Occassional, on the weekends Drug use: No EXAM: BP 138/96 Pulse 83 Resp 16 SpO2 95% PHYSICAL EXAM: General Appearance: Well appearing, alert, in no acute distress, well-hydrated, well nourished.. Skin: Skin color, texture, turgor normal, no suspicious rashes or lesions. Head: Normocephalic, no masses, lesions, tenderness or abnormalities. Eyes: Anicteric sclera. Extraocular movements are intact. . Extremities: No deformities, edema, skin discoloration, clubbing or cyanosis. Good capillary refill. Pain left foot just anterior to the heel. Neurologic: Gait normal. ASSESSMENT/PLAN: 1. Plantar fasciitis - ICD9: 728.71, ICD10: M72.2 Continue nsaids. Continue ice. Continue rolling and exercises. Will get xray to r/o spur. Consult to podiatry. - XR FOOT GENERAL 3V AP/LAT/OBL LEFT - CONSULT TO PODIATRY Discussed treatment plan and patient voices understanding. Patient's questions answered appropriately. Medications and potential side effects were discussed and patient voices understanding. Return to the office as scheduled or as needed for worsening/no improvement. Hallie Fernandez APRN.Hallie Chen APRN.CLOTH CARRIER 05/28/2024 10:15 AM Addendum Get the xray. Schedule w/ podiatry. Continue rolling foot, doing stretches, and icing. Allergies As of Date: 05/28/2024 Noted Allergy Reaction AUGMENTIN (AMOXICILLIN-POT CLAVUL*09/06/2005 DUST MITES 09/06/2005 ZITHROMAX (AZITHROMYCIN) 09/06/2005 Date Reviewed: 05/28/2024 Reviewed by: Mark Thao LPN - Fully Assessed Reason for Visit: Recheck [92] Cmt: Follow up- L foot pain, continuing Primary Visit Diagnosis:Plantar fasciitis [M72.2] Order(s):XR FOOT GENERAL 3V AP/LAT/OBL LEFT [[id number]] Order #: [id number] FUTURE CONSULT TO PODIATRY [9034] Order #: [id number]: 1 FUTURE Prescriptions as of 05/29/2024 - ibuprofen (MOTRIN) 200 mg tablet Take 1-2 tablets by mouth every 6 hours as needed for pain (Take with food.). - cetirizine hcl(ZYRTEC 10 MG TAB) Take one(1) tablet daily. Meds Comments as of 12/12/2007: Reviewed current med list, 12/12/2007. Kayy Navarro LPN Problem List As Of Date 05/28/2024 Noted Resolved Chronic insomnia [F51.04] 04/07/2018 05/27/2019 Elevated liver function tests [R79.89] 04/10/2018 05/27/2019 Adult BMI 40.0-44.9 kg/sq m (HCC) [Z68.41] 12/03/2018 Hyperlipidemia with target LDL less than 130 [E*03/07/2019 Other instructions from your clinician: Get the xray. Schedule w/ podiatry. Continue rolling foot, doing stretches, and icing. Level of Service: OFFICE/OUTPATIENT ESTABLISHED LOW MDM 20 MIN [82881] Additional E/M codes: VISIT CPLX INHERENT EANDM ASSOC WITH MED * LOS History for Encounter - (more content not included)... Normal [facility] XR FOOT 3V AP/LAT/OBL LTon 1 07-28-2023 XR FOOT 3V AP/LAT/OBL LT * * *Final Report* * * DATE OF EXAM: May 28 2024 11:05AM WOX [id number] - XR FOOT 3V AP/LAT/OBL LT / PROCEDURE REASON: Plantar fasciitis * * * * Physician Interpretation * * * * PROCEDURE: Left foot INDICATION: Plantar fasciitis .dx' d with plantar fasciitis in Apr. pain in plantar arch area no inj TECHNIQUE: XR FOOT 3V AP/LAT/OBL LT COMPARISON: None FINDINGS/ IMPRESSION: Normal bone mineralization. No fracture or dislocation. Joint spaces are maintained. No erosions or focal soft tissue swelling. Tiny plantar calcaneal spur and small Achilles enthesophyte. Skilled Helper: PSCB Transcribe Date/Time: Jun 01 2024 10:46A Dictated by : ITALO GOSS MD This examination was interpreted and the report reviewed and electronically signed by: ITALO GOSS MD on Jun 01 2024 10:47AM EST [id number] Normal [facility] CNOVon 05-08-2024 [facility] JUAN CHAPA ([id number]) 1995 M Date Time Provider Department 05/08/24 9:00 AM HALLIE FERNANDEZ During your visit today, we recorded the following information about you: Pulse Respiration Blood pressure Weight 87/minute 16/minute 142/92 157.4 kg Hallie Fernandez APRN.CLOTH CARRIER 05/08/2024 3:37 PM Signed This is a 28 year old male who presents today with: Patient presents with: Acute Visit: L foot pain x couple days; no known injury HISTORY OF PRESENT ILLNESS: Juan Chapa is a 28 year old male. Patient presents with: Acute Visit: L foot pain x couple days; no known injury Pt presents today with complaint of left foot pain. Started a couple of days ago. Doesn't recall any injuries. Doesn't notice any swelling. Not taking for pain. When he is off the leg for awhile and then goes to walk on it, pain is worse. Being off of it helps. PAST MEDICAL HISTORY: PAST MEDICAL HISTORY Diagnosis Date Elevated liver function tests 04/10/2018 04/07/18: ALT 97 AST 44 ?fatty liver disease Obesity, Class III, BMI 40-49.9 (morbid obesity) (HCC) 04/07/2018 PAST SURGICAL HISTORY Procedure Laterality Date ADENOIDECTOMY PRIMARY Adenoidectomy CIRCUMCISION TONSILLECTOMY PRIMARY/SECONDARY Tonsillectomy ALLERGIES Augmentin [Amoxicillin-Pot Clavulanate], Dust Mites, and Zithromax [Azithromycin] MEDICATIONS Current Outpatient Medications Medication Sig cetirizine hcl(ZYRTEC 10 MG TAB) Take one(1) tablet daily. No current facility-administered medications for this visit. FAMILY HISTORY Problem Relation Age of Onset Asthma Maternal Grandmother other (MVP [Other]) Mother None Father None Maternal Grandfather Heart Paternal Grandmother Heart Paternal Grandfather None Sister None Brother Social History Tobacco Use Smoking status: Never Smokeless tobacco: Never Vaping Use Vaping status: Never Used Substance Use Topics Alcohol use: Yes Alcohol/week: 1.0 - 2.0 standard drink of alcohol Types: 1 - 2 Cans of Beer (12oz) per week Comment: Occassional, on the weekends Drug use: No EXAM: BP 142/92 Pulse 87 Resp 16 Wt (!) 157.4 kg (347 lb) SpO2 95% BMI 45.47 kg/m? PHYSICAL EXAM: General Appearance: Well appearing, alert, in no acute distress, well-hydrated, well nourished.. Skin: Skin color, texture, turgor normal, no suspicious rashes or lesions. Head: Normocephalic, no masses, lesions, tenderness or abnormalities. Eyes: Anicteric sclera. Pupils are equally round and reactive to light. Extraocular movements are intact. . Extremities: No deformities, edema, skin discoloration, clubbing or cyanosis. Good capillary refill. + tenderness at the posterior aspect of the plantar fascia. Neurologic: Gait normal. ASSESSMENT/PLAN: 1. Plantar fasciitis - ICD9: 728.71, ICD10: M72.2 Start routine course of nsaid. Ice, rolling on a frozen water bottle. Discussed rolling foot on foot roller/ball. Plantar fasciitis exercises provided. Also discussed nighttime splint. Notify provider if no better or worse, may need to consider referral to podiatry. Discussed treatment plan and patient voices understanding. Patient's questions answered appropriately. Medications and potential side effects were discussed and patient voices understanding. Return to the office as scheduled or as needed for worsening/no improvement. MEAGAN Padilla Christy, APRN.CNP 05/08/2024 9:19 AM Signed Roll foot. Antiinflammatories. Foot stretches. If no improvement, consider getting the plantar fasciitis night splint. Let me know if no better/worsening. Allergies As of Date: 05/08/2024 Noted Allergy Reaction AUGMENTIN (AMOXICILLIN-POT CLAVUL*09/06/2005 DUST MITES 09/06/2005 ZITHROMAX (AZITHROMYCIN) 09/06/2005 Date Reviewed: 05/08/2024 Reviewed by: Mark Thao LPN - Fully Assessed Reason for Visit: Acute Visit [896] Cmt: L foot pain x couple days; no known injury Primary Visit Diagnosis:Plantar fasciitis [M72.2] Prescriptions as of 05/08/2024 - cetirizine hcl(ZYRTEC 10 MG TAB) Take one(1) tablet daily. Meds Comments as of 12/12/2007: Reviewed current med list, 12/12/2007. Kayy Navarro LPN Problem List As Of Date 05/08/2024 Noted Resolved Chronic insomnia [F51.04] 04/07/2018 05/27/2019 Elevated liver function tests [R79.89] 04/10/2018 05/27/2019 Adult BMI 40.0-44.9 kg/sq m (HCC) [Z68.41] 12/03/2018 Hyperlipidemia with target LDL less than 130 [E*03/07/2019 Other instructions from your clinician: Roll foot. Antiinflammatories. Foot stretches. If no improvement, consider getting the plantar fasciitis night splint. Let me know if no better/worsening. Level of Service: OFFICE/OUTPATIENT ESTABLISHED LOW MDM 20 MIN [12996] Additional E/M codes: VISIT CPLX INHERENT EANDM ASSOC WITH MED * (more content not included)... Normal [facility] Liver ultrasound attenuation by transient elastographyon 12-21-2023 Patient fasting for 3 hours:Yes Fibroscan was performed on December 21, 2023, by Kizzy Zarate LPN and results are interpreted by Reyna Thao CNP Diagnosis: Elevated liver enzymes [R74.8] Hepatic steatosis [K76.0] Please refer to get images report for individual readings Number of readings: 10 IQR %: 15 E (kpa): 23.2 CAP: 313 Exam was difficult to perform due to patient's BMI, heavy breathing pattern. Impression The reading was adequate. FS=23.2 kPA. The CAP score is 313 and corresponds to steatosis grade of S3. This reading corresponds: A kPa >20 indicates a high likelihood of stage 4 fibrosis/cirrhosis, consider further testing to confirm. Reyna Thao APRN.ALEXANDER DANIELS Fibroscan Fibrosis Risk <7 kPA = F0-F2 97%, F3+F4 3%, F4 <1% <10 kPA = F0-F2 91%, F3+F4 9%, F4 1.3% 10-15 kPA = F0-F2 56%, F3+F4 43%, F4 14% >15 kPA = F0-F2 26%, F3+F4 74%, F4 46% Grade CAP value up to 237 dB/M corresponds to S0 (< 10 % Fat) CAP value between (238 - 258 dB/M) corresponds to S1 (>/= 11 % Fat) CAP value between (259 - 289 dB/M) corresponds to S2 (>/= 33 % Fat) CAP value > 290dB/M corresponds to S3 (>/= 67 % Fat) stage 0 ( S0:< 10 % steatosis) stage 1 (>/= S1: 11%-33% steatosis) stage 2 (>/= S2: 34%-66% steatosis) stage 3 (>/= S3: > 66% steatosis) Reference Richard Y, Choco Q, Ramos T, Minnie J, Ramos H, James T. Controlled attenuation parameter for assessment of hepatic steatosis grades: a diagnostic meta-analysis. Int J Clin Exp Med. 2015 Apr 15;8(10):06521-98. PMID: 11113714; PMCID: [id number]. René Manning, Hui VALLE, Brendan M, Syeda F, Aletha J, Kostas O, Brandi F, Clifford M, Kari G, Nathaly Swain, Phoebe E, Renee L, Bari G, Julisa A, Uri U, Adam S, Aida P, Duy V, Valdivia V, Ying M, Irma INGRAM. Refining the Baveno elastography criteria for the definition of compensated advanced chronic liver disease. J Hepatol. 2020;74(5):7617-4389. doi: 10.1016/j.jhep.2019.11 .050. Epub 2019Jul 01. PMID: 43206621. [facility] Radiology Study observation (narrative) [facility] Radiology Study observation (narrative) [facility] CBC W Auto Differential pane l (Bld)on 11-01-2023 Basophils (Bld) [#/Vol] 0.11 10*3/uL High <0.11 k/uL [facility] Basophils/100 WBC (Bld) 1.3 % [facility] Differential cell count method Nom (Bld) Auto [facility] Eosinophils (Bld) [#/Vol] 0.50 10*3/uL High <0.46 k/uL [facility] Eosinophils/100 WBC (Bld) 5.8 % [facility] Erythrocyte distribution width (RBC) [Ratio] 13.6 % 11.5 - 15.0 % [facility] Hematocrit (Bld) [Volume fraction] 45.1 % 39.0 - 51.0 % [facility] Hemoglobin (Bld) [Mass/Vol] 14.7 g/dL 13.0 - 17.0 g/dL [facility] Immature granulocytes (Bld) [#/Vol] 0.03 10*3/uL <0.10 k/uL [facility] Immature granulocytes/100 WBC (Bld) 0.3 % [facility] Lymphocytes (Bld) [#/Vol] 2.45 10*3/uL 1.00 - 4.00 k/uL [facility] Lymphocytes/100 WBC (Bld) 28.2 % [facility] MCH (RBC) [Entitic mass] 30.0 pg 26.0 - 34.0 pg [facility] MCHC (RBC) [Mass/Vol] 32.6 g/dL 30.5 - 36.0 g/dL [facility] MCV (RBC) [Entitic vol] 92.0 fL 80.0 - 100.0 fL [facility] Monocytes (Bld) [#/Vol] 0.62 10*3/uL <0.87 k/uL [facility] Monocytes/100 WBC (Bld) 7.1 % [facility] Neutrophils (Bld) [#/Vol] 4.98 10*3/uL 1.45 - 7.50 k/uL [facility] Neutrophils/100 WBC (Bld) 57.3 % [facility] Nucleated RBC (Bld) [#/Vol] <0.01 k/uL [facility] Nucleated RBC/100 WBC (Bld) [Ratio] 0.0 /100 WBC [facility] Platelet mean volume (Bld) [Entitic vol] 10.5 fL 9.0 - 12.7 fL [facility] Platelets (Bld) [#/Vol] 311 10*3/uL 150 - 400 k/uL [facility] RBC (Bld) [#/Vol] 4.90 10*6/uL 4.20 - 6.0 0 m/uL [facility] WBC (Bld) [#/Vol] 8.69 10*3/uL 3.70 - 11. 00 k/uL [facility] Comprehensive metabolic 2000 panelon 11-01-2023 Albumin [Mass/Vol] 4.2 g/dL 3.9 - 4.9 g/dL [facility] ALP [Catalytic activity/Vol] 77 U/L 38 - 113 U/L [facility] ALT [Catalytic activity/Vol] 122 U/L High 10 - 54 U/L [facility] Anion gap [Moles/Vol] 11 mmol/L 9 - 18 mmol/L [facility] AST [Catalytic activity/Vol] 57 U/L High 14 - 40 U/L [facility] Bilirubin [Mass/Vol] 0.5 mg/dL 0.2 - 1 .3 mg/dL [facility] Calcium [Mass/Vol] 9.5 mg/dL 8.5 - 10. 2 mg/dL [facility] Chloride [Moles/Vol] 106 mmol/L High 97 - 10 5 mmol/L [facility] CO2 [Moles/Vol] 24 mmol/L 22 - 30 mmol/L [facility] Creatinine [Mass/Vol] 0.84 mg/dL 0.73 - 1.22 mg/dL [facility] Estimated Glomerular Filtration Rate 121 mL/min/1.73m >=60 mL/min/1.73m [facility] Glucose [Mass/Vol] 103 mg/dL High 74 - 99 mg/dL [facility] Potassium [Moles/Vol] 4.3 mmol/L 3.7 - 5.1 mmol/L [facility] Protein [Mass/Vol] 7.4 g/dL 6.3 - 8.0 g/dL [facility] Sodium [Moles/Vol] 141 mmol/L 136 - 144 mmol/L [facility] Urea nitrogen [Mass/Vol] 16 mg/dL 9 - 24 mg/dL [facility] Lipid 1996 panelon Cholesterol [Mass/Vol] 176 mg/dL <200 mg/dL [facility] Cholesterol in HDL [Mass/Vol] 47 mg/dL >39 mg/dL [facility] Cholesterol in LDL [Mass/Vol] 101 mg/dL High <100 mg/dL [facility] Cholesterol in LDL/Cholesterol in HDL [Mass ratio] 2.15 {ratio} <2.54 [facility] Cholesterol in VLDL [Mass/Vol] 28 mg/dL <30 mg/dL [facility] Cholesterol non HDL [Mass/Vol] 129 mg/dL <130 mg/dL [facility] Cholesterol.total/Chol esterol in HDL [Mass ratio] 3.74 {ratio} <5.10 [facility] Fasting Time 10 hrs [facility] Triglyceride [Mass/Vol] 142 mg/dL <150 mg/dL [facility] THYROID STIMULATING HORMONEo n 11-01-2023 TSH Qn 1.920 m[IU]/L 0.270 - 4.200 mIU/L [facility] UA DIP, URINE (POC)on 2022 BILIRUBIN UA (POCT) Negative Negative [facility] CLARITY UA (POCT) Clear [facility] COLOR UA (POCT) Yellow [facility] GLUCOSE UA (POCT) Negative Negative mg/dL [facility] HEMOGLOBIN/BLOOD UA (POCT) Negative Negative [facility] KETONE UA (POCT) Negative Negative mg/dL [facility] LEUKOCYTES UA (POCT) Negative Negative [facility] NITRITE UA (POCT) Negative Negative [facility] PH UA (POCT) 5.0 4.5 - 8.0 [facility] Protein Ql (U) Negative Negative mg/dL [facility] SPECIFIC GRAVITY UA (POCT) >=1.030 1.005 - 1.030 [facility] UROBILINOGEN UA (POCT) 0.2 E.U./dL Kristen l E.U./dL [facility] No Panel Informationon 08-29 [facility] CBC W Auto Differential pane l (Bld)on 08-23-2022 Basophils (Bld) [#/Vol] 0.07 10*3/uL <0.11 k/uL [facility] Basophils/100 WBC (Bld) 0.5 % [facility] Differential cell count method Nom (Bld) Auto [facility] Eosinophils (Bld) [#/Vol] 0.37 10*3/uL <0.46 k/uL [facility] Eosinophils/100 WBC (Bld) 2.9 % [facility] Erythrocyte distribution width (RBC) [Ratio] 12.9 % 11.5 - 15.0 % [facility] Hematocrit (Bld) [Volume fraction] 45.8 % 39.0 - 51.0 % [facility] Hemoglobin (Bld) [Mass/Vol] 15.3 g/dL 13.0 - 17.0 g/dL [facility] Immature granulocytes (Bld) [#/Vol] 0.05 10*3/uL <0.10 k/uL [facility] Immature granulocytes/100 WBC (Bld) 0.4 % [facility] Lymphocytes (Bld) [#/Vol] 2.17 10*3/uL 1.00 - 4.00 k/uL [facility] Lymphocytes/100 WBC (Bld) 16.9 % [facility] MCH (RBC) [Entitic mass] 30.8 pg 26.0 - 34.0 pg [facility] MCHC (RBC) [Mass/Vol] 33.4 g/dL 30.5 - 36.0 g/dL [facility] MCV (RBC) [Entitic vol] 92.2 fL 80.0 - 100.0 fL [facility] Monocytes (Bld) [#/Vol] 1.09 10*3/uL High <0.87 k/uL [facility] Monocytes/100 WBC (Bld) 8.5 % [facility] Neutrophils (Bld) [#/Vol] 9.12 10*3/uL High 1.45 - 7.50 k/uL [facility] Neutrophils/100 WBC (Bld) 70.8 % [facility] Nucleated RBC (Bld) [#/Vol] <0.01 k/uL [facility] Nucleated RBC/100 WBC (Bld) [Ratio] 0.0 /100 WBC [facility] Platelet mean volume (Bld) [Entitic vol] 11.2 fL 9.0 - 12.7 fL [facility] Platelets (Bld) [#/Vol] 276 10*3/uL 150 - 400 k/uL [facility] RBC (Bld) [#/Vol] 4.97 10*6/uL 4.20 - 6.0 0 m/uL [facility] WBC (Bld) [#/Vol] 12.87 10*3/uL High 3.70 - 11 .00 k/uL [facility] HbA1c (Bld)on 08-23-2022 Average glucose Estimated from glycated hemoglobin (Bld) [Mass/Vol] 108 mg/dL [facility] HbA1c (Bld) [Mass fraction] 5.4 % 4.3 - 5.6 % [facility] Influenza virus A and B RNA and SARS-CoV-2 (COVID-19) N gene panel AVRIL+probe (Resp)on 08-23-2022 FLUAV RNA AVRIL+probe Ql (Unsp spec) Not detected Not Detected [facility] FLUBV RNA AVRIL+probe Ql (Unsp spec) Not detected Not Detected [facility] SARS-CoV-2 (COVID-19) RNA AVRIL+probe Ql (Resp) Not detected See comment [facility] UA DIP, URINE (POC)on 2022 BILIRUBIN UA (POCT) Negative Negative [facility] CLARITY UA (POCT) Clear [facility] COLOR UA (POCT) Yellow [facility] GLUCOSE UA (POCT) Negative Negative mg/dL [facility] HEMOGLOBIN/BLOOD UA (POCT) Trace-intact Abnormal Negative [facility] KETONE UA (POCT) Negative Negative mg/dL [facility] LEUKOCYTES UA (POCT) Negative Negative [facility] NITRITE UA (POCT) Negative Negative [facility] PH UA (POCT) 6.0 4.5 - 8.0 [facility] Protein Ql (U) Negative Negative mg/dL [facility] SPECIFIC GRAVITY UA (POCT) 1.025 1.005 - 1.030 [facility] UROBILINOGEN UA (POCT) 0.2 E.U./dL Kristen l E.U./dL [facility] Urinalysis complete panel (U )on 08-23-2022 Bilirubin Ql (U) Negative Negative [facility] Calcium Oxalate Crystals Moderate Abnormal None Seen /HPF [facility] Clarity (Unsp spec) Clear Clear [facility] Color (U) Yellow Yellow [facility] Epithelial cells LM.HPF (Urine sed) [#/Area] Few [facility] Glucose Test strip (U) [Mass/Vol] Negative Trace, Negative [facility] Hemoglobin Ql (U) Negative Negative, Trace [facility] Ketones Ql (U) Negative Trace, Negative [facility] Leukocyte esterase Test strip Ql (U) Negative Negative, 25 Chad/mL [facility] Nitrite Ql (U) Negative Negative [facility] pH (U) 6.0 [pH] 5.0 - 8.0 [facility] Protein (U) [Mass/Vol] Trace Trace , Negative [facility] RBC LM.HPF (Urine sed) [#/Area] 0-3 /HPF 0-3 /HPF [facility] Specific gravity (U) [Rel density] 1.028 1.005 - 1.030 [facility] Urobilinogen Ql (U) Negative Negative [facility] WBC LM.HPF (Urine sed) [#/Area] 0-5 /HPF 0-5 /HPF [facility] Vital Signs Date Time Vital Sign Value Performing Clinician Cecil kirk 10-16-2024 13:23-0400 Diastolic blood pressure 94 mm[Hg] Quentin Mcleod MD Work Phone: [facility] 10-16-2024 13:23-0400 Systolic blood pressure 128 mm[Hg] Quentin Mcleod MD Work Phone: [facility] 10-16-2024 12:51-0400 Body mass index (BMI) [Ratio] 45.39 kg/m2 Quentin Mcleod MD Work Phone: [facility] 10-16-2024 12:51-0400 Body weight 156.04 kg Quentin Mcleod MD Work Phone: [facility] 10-16-2024 12:51-0400 Heart rate 87 /min Quentin Mcleod MD Work Phone: [facility] 10-16-2024 12:51-0400 SaO2% (BldA) [Mass fraction] 97 % Quentin Mcleod MD Work Phone: [facility] 07-12-2024 08:52-0500 Body height 185.4 cm Itzel Hritz [employer] Work Phone: [facility] 07-12-2024 08:52-0500 Body mass index (BMI) [Ratio] 45.25 kg/m2 Itzel Hritz [employer] Work Phone: [facility] 07-12-2024 08:52-0500 Body weight 155.58 kg Itzel Kidd [employer]SP[employer]MENT [employer] Work Phone: [facility] 07-12-2024 08:52-0500 Diastolic blood pressure 84 mm[Hg] Itzel Hritz [employer]SP[employer]MENT [employer] Work Phone: [facility] 07-12-2024 08:52-0500 Heart rate 80 /min Itzel Koenigitz [employer]SP[employer]MENT [employer] Work Phone: [facility] 07-12-2024 08:52-0500 Systolic blood pressure 126 mm[Hg] Itzel Hritz [employer]SPORT[employer] DEPARTMENT [employer] Work Phone: [facility] 05-28-2024 09:50-0500 Diastolic blood pressure 96 mm[Hg] Hallie Haagen [employer]SPORTATION DE[employer]MENT [employer] Work Phone: [facility] 05-28-2024 09:50-0500 Heart rate 83 /min Hallie Haagen [employer]SPORTATION DE[employer]MENT [employer] Work Phone: [facility] 05-28-2024 09:50-0500 Respiratory rate 16 /min Hallie Haagen [employer]SPORT[employer]MENT [employer] Work Phone: [facility] 05-28-2024 09:50-0500 SaO2% (BldA) [Mass fraction] 95 % Hallie Haagen [employer]SP[employer]MENT [employer] Work Phone: [facility] 05-28-2024 09:50-0500 Systolic blood pressure 138 mm[Hg] Hallie Haagen [employer]SPORTATION DEPARTMENT [employer] Work Phone: [facility] 05-08-2024 08:54-0400 Body mass index (BMI) [Ratio] 45.47 kg/m2 Hallie Haagen [employer]MENT [employer] Work Phone: [facility] 05-08-2024 08:54-0400 Body weight 157.4 kg Hallie Pedroagen [employer]SP[employer]ATION DE[employer]MENT [employer] Work Phone: [facility] 05-08-2024 08:54-0400 Diastolic blood pressure 92 mm[Hg] Hallie Haagen [employer]SPORTATION DE[employer]MENT [employer] Work Phone: [facility] 05-08-2024 08:54-0400 Heart rate 87 /min Hallie Fernandez [employer]SP[employer]MENT [employer] Work Phone: [facility] 05-08-2024 08:54-0400 Respiratory rate 16 /min Hallie Fernandez [employer]SPORTATION DE[employer]MENT [employer] Work Phone: [facility] 05-08-2024 08:54-0400 SaO2% (BldA) [Mass fraction] 95 % Hallie Fernandez [employer]SPORT[employer]MENT [employer] Work Phone: [facility] 05-08-2024 08:54-0400 Systolic blood pressure 142 mm[Hg] Hallie Pedroagen [employer]SPORTATION DEPARTMENT [employer] Work Phone: [facility] 12-12-2023 09:23-0400 Body height 186.1 cm Itzel Kidd [employer]SPORTATION DEPARTMENT [employer] Work Phone: [facility] 12-12-2023 09:23-0400 Body mass index (BMI) [Ratio] 45.21 kg/m2 Itzel Hritz [employer]SP[employer]MENT [employer] Work Phone: [facility] 12-12-2023 09:23-0400 Body weight 156.49 kg Itzel Koenigitz [employer]SPORT[employer]MENT [employer] Work Phone: [facility] 12-12-2023 09:23-0400 Diastolic blood pressure 82 mm[Hg] Itzel Hritz [employer]SP[employer]MENT [employer] Work Phone: [facility] 12-12-2023 09:23-0400 Heart rate 86 /min Itzel Kidd [employer]SPORTATION DE[employer]MENT [employer] Work Phone: [facility] 12-12-2023 09:23-0400 Systolic blood pressure 132 mm[Hg] Itzel Kidd [employer]SPORTATION DEPARTMENT [employer] Work Phone: [facility] 11-01-2023 07:57-0400 Body height 186 cm Quentin Mcleod MD Work Phone: [facility] 11-01-2023 07:57-0400 Body weight 158.76 kg Quentin Mcleod MD Work Phone: [facility] 11-01-2023 07:57-0400 Diastolic blood pressure 86 mm[Hg] Quentin Mcleod MD Work Phone: [facility] 11-01-2023 07:57-0400 Heart rate 104 /min Quentin Mcleod MD Work Phone: [facility] 11-01-2023 07:57-0400 Respiratory rate 16 /min Quentin Mcleod MD Work Phone: [facility] 11-01-2023 07:57-0400 SaO2% (BldA) [Mass fraction] 95 % Quentin Mcleod MD Work Phone: [facility] 11-01-2023 07:57-0400 Systolic blood pressure 134 mm[Hg] Quentin Mcleod MD Work Phone: [facility] 11-28-2022 10:58-0400 Body temperature 97 [degF] NA Storey PA-C Work Phone: [facility] 11-28-2022 10:58-0400 Body weight 147.42 kg NA Storey PA-C Work Phone: [facility] 11-28-2022 10:58-0400 Diastolic blood pressure 82 mm[Hg] NA Storey PA-C Work Phone: [facility] 11-28-2022 10:58-0400 Heart rate 99 /min NA Storey PA-C Work Phone: [facility] 11-28-2022 10:58-0400 Respiratory rate 16 /min NA Storey PA-C Work Phone: [facility] 11-28-2022 10:58-0400 SaO2% (BldA) [Mass fraction] 97 % NA Storey PA-C Work Phone: [facility] 11-28-2022 10:58-0400 Systolic blood pressure 124 mm[Hg] NA Storey PA-C Work Phone: [facility] 09-20-2022 10:02-0500 Body height 188 cm NA Storey PA-C Work Phone: [facility] 09-20-2022 10:02-0500 Body weight 149.69 kg NA Storey PA-C Work Phone: [facility] 09-20-2022 10:02-0500 Diastolic blood pressure 80 mm[Hg] NA Storey PA-C Work Phone: [facility] 09-20-2022 10:02-0500 Heart rate 93 /min NA Storey PA-C Work Phone: [facility] 09-20-2022 10:02-0500 Respiratory rate 16 /min NA Storey PA-C Work Phone: [facility] 09-20-2022 10:02-0500 SaO2% (BldA) [Mass fraction] 98 % NA Storey PA-C Work Phone: [facility] 09-20-2022 10:02-0500 Systolic blood pressure 124 mm[Hg] NA Storey PA-C Work Phone: [facility] 08-23-2022 14:16-0500 Body temperature 97.3 [degF] Hallie Willisagen TRANSPORTATION DEPARTMENT HEAD.[employer] Work Phone: [facility] 08-23-2022 13:40-0500 Diastolic blood pressure 98 mm[Hg] Hallie Haagen TRANSPORTATION DEPARTMENT HEAD.[employer] Work Phone: [facility] 08-23-2022 13:40-0500 Heart rate 106 /min Hallie Willisagen TRANSPORTATION DEPARTMENT HEAD.[employer] Work Phone: [facility] 08-23-2022 13:40-0500 Respiratory rate 18 /min Hallie Fernandez TRANSPORTATION DEPARTMENT HEAD.[employer] Work Phone: [facility] 08-23-2022 13:40-0500 SaO2% (BldA) [Mass fraction] 98 % Hallie Fernandez TRANSPORTATION DEPARTMENT HEAD.[employer] Work Phone: [facility] 08-23-2022 13:40-0500 Systolic blood pressure 142 mm[Hg] Hallie Fernandez TRANSPORTATION DEPARTMENT HEAD.[employer] Work Phone: [facility] Encounters Encounter Date Encounter Type Care Provider Facility Start: 01-08-2025 End: 01-08-2025 Telephone encounter Quentin Mcleod MD Work Phone: [facility] [place] Comment on above: [facility] Start: 12-11-2024 End: 12-11-2024 ambulatory [facility] Facility:[facility] Start: 11-13-2024 End: 11-13-2024 ambulatory [facility] Facility:[facility] Start: 10-17-2024 End: 12-17-2024 Follow-up encounter Quentin Mcleod MD Work Phone: [facility] Start: 10-16-2024 End: 10-16-2024 ambulatory QUENTIN MCLEOD Facility:[facility] Start: 10-16-2024 End: 10-16-2024 Patient encounter procedure Quentin Mcleod MD Work Phone: [facility] [place] Comment on above: Well adult exam (Nidia ramon Dx); Encounter for screening examination for other mental health and behavioral disorders; Hyperlipidemia with target LDL less than 130; Class 3 severe obesity with body mass index (BMI) of 45.0 to 49.9 in adult, unspecified obesity type, unspecified whether serious comorbidity present (HCC); Elevated liver enzymes; Screening for depression; Elevated blood pressure reading without diagnosis of hypertension Start: 10-16-2024 End: 10-16-2024 Patient encounter status Quentin Mcleod MD Work Phone: [facility] Start: 07-19-2024 End: 07-19-2024 ambulatory ITZEL KIDD Facility:[id number] Start: 07-12-2024 End: 07-12-2024 Office outpatient visit 15 minutes Itzel Kidd TRANSPORTATION DEPARTMENT HEAD.[employer] Work Phone: [facility] [place] Comment on above: Elevated liver enzym es (Primary Dx); Hepatic steatosis Start: 07-12-2024 End: 07-12-2024 ambulatory ITZEL KIDD Facility:[facility] Start: 06-25-2024 End: 06-25-2024 ambulatory WILLY ALEGRE Facility:[facility] Start: 06-25-2024 End: 06-25-2024 Patient encounter procedure Willy Alegre Work Phone: Podiatry Comment on above: Plantar fasciitis Start: 06-03-2024 End: 06-03-2024 Telephone encounter Chinyere Boykin PA-C Work Phone: [facility] [place] Comment on above: Results Start: 05-28-2024 End: 05-28-2024 ambulatory [facility] Facility:[facility] Start: 05-28-2024 End: 05-28-2024 Subsequent hospital visit by physician Diana [facility] [place] Work Phone: Radiology Comment on above: Plantar fasciitis [M 72.2] Start: 05-28-2024 End: 05-28-2024 Office outpatient visit 15 minutes Hallie Fernandez TRANSPORTATION DEPARTMENT HEAD.[employer] Work Phone: [facility] [place] Comment on above: Plantar fasciitis (P rimary Dx) Start: 05-28-2024 End: 05-28-2024 ambulatory [facility] Facility:[facility] Start: 05-08-2024 End: 05-08-2024 Office outpatient visit 15 minutes Hallie Haagen TRANSPORTATION DEPARTMENT HEAD.[employer] Work Phone: [facility] [place] Comment on above: Plantar fasciitis (P rimary Dx) Start: 05-08-2024 End: 05-08-2024 [facility] Facility:[facility] Start: 12-27-2023 Telephone encounter Itzel aldana TRANSPORTATION DEPARTMENT HEAD.[employer] Work Phone: [facility] [place] Comment on above: Results Start: 12-21-2023 End: 12-21-2023 Orders Only Itzel Kidd APRN.[employer] Work Phone: Gastroenterology Comment on above: Elevated liver enzym es (Primary Dx); Hepatic steatosis [facility] Start: 12-12-2023 End: 12-12-2023 Office outpatient new 30 minutes Itzel Kidd APRN.[employer] Work Phone: [facility] [place] Comment on above: Elevated liver enzym es (Primary Dx); Hepatic steatosis Start: 11-16-2023 Telephone encounter Quentin Mcleod MD Work Phone: [facility] [place] Comment on above: Results Start: 11-01-2023 Telephone encounter Quentin Mcleod MD Work Phone: [facility] [place] Comment on above: Results Start: 11-01-2023 End: 11-01-2023 Patient encounter procedure Quentin Mcloed MD Work Phone: [facility] [place] Comment on above: Well adult exam (Nidia ramon Dx); Hyperlipidemia with target LDL less than 130; Adult BMI 40.0-44.9 kg/sq m (HCC); Weight gain Start: 11-01-2023 End: 11-01-2023 Patient encounter status Quentin Mcleod MD Work Phone: [facility] Work Phone: Start: 11-28-2022 End: 11-28-2022 Patient encounter procedure Nigel Storey PA-C Work Phone: [facility] [place] Comment on above: Urinary frequency (P rimary Dx); Nocturia; FH: diabetes mellitus; URI, acute; Elevated liver enzymes Start: 09-20-2022 End: 09-20-2022 Patient encounter procedure Nigel Storey PA-C Work Phone: [facility] [place] Comment on above: Elevated liver enzym es (Primary Dx); Leukocytosis, unspecified type; URI, acute Start: 09-08-2022 Telephone encounter Hallie keita APRN.[employer] CAR[employer]ER Work Phone: [facility] [place] Comment on above: Results Start: 08-31-2022 Telephone encounter Hallie keita APRN.[employer]OTH CAR[employer]ER Work Phone: [facility] [place] Comment on above: Results Start: 08-29-2022 End: 08-29-2022 Subsequent hospital visit by physician [facility] Work Phone: Radiology Comment on above: Elevated liver enzym es [R74.8] Start: 08-23-2022 End: 08-23-2022 Office outpatient visit 15 minutes Hallie Fernandez APRN.[employer] CAR[employer]ER Work Phone: [facility] [place] Comment on above: Viral upper respirat ory tract infection (Primary Dx); Frequent urination; Hyperlipidemia with target LDL less than 130; Polyuria Procedures Date Procedure Procedure Detail Performing Clinician Start: 10-16-2024 Adult depression scr eening assessment Quentin Mcleod MD Work Phone: Start: 12-21-2023 End: 12-21-2023 Liver elastography w/o imag w/i&r Itzel Kidd APRN.[employer] Work Phone: Start: 11-28-2022 Urnls dip stick/tabl et rgnt auto w/o microscopy Nigel Storey PA-C Work Phone: Start: 08-29-2022 Us abdominal real ti me w/image limited Hallie Fernandez APRN.[employer] CAR[employer]ER Work Phone: Start: 08-23-2022 COVID WITH FLUA+B, ROUTINE Hallie Fernandez APRN.[employer]OTH CARRIER Work Phone: Start: 08-23-2022 Urnls dip stick/tabl et rgnt auto w/o microscopy Hallie Fernandez APRN.CLOTH CARRIER Work Phone: Plan of Treatment Date Care Activity Detail Author Start: 04-07-2028 Urine microalbumin profile [facility] Start: 12-11-2025 Annual PCP Team Chronic Disease Visit Annual PCP Team Chronic Disease Visit [facility] Start: 10-16-2025 Anxiety Screening Anxiety Screening [facility] Start: 10-16-2025 Depression Screening Depression Screening [facility] Start: 07-08-2025 End: 07-08-2025 Patient encounter procedure 07/08/2025 9:15 AM EST Office Visit [facility] [address] [place] [id number] Itzel Kidd APRN.[employer]OTH CARRIER [address] [place] [address] f/u for fatty liver [facility] Comment on above: f/u for fatty liver Start: 06-16-2025 End: 06-16-2025 Patient encounter procedure 06/16/2025 9:00 AM EST Office Visit [facility] [place] [address] [facility] [place] [address] Hallie Fernandez APRN.CLOTH CARRIER [address] [facility] [place] [address] 6 month follow up [facility] [place] Comment on above: 6 month follow up Start: 11-13-2024 End: 11-13-2024 Patient encounter procedure 11/13/2024 8:40 AM EDT Office Visit [facility] [place] [address] [place] [address] Hallie Fernandez APRN.CLOTH CAR[employer]ER [address] [place] [address] 4 week follow up [facility] [place] Comment on above: 4 week follow up Start: 10-16-2024 End: 01-15-2025 Comprehensive metabolic 2000 panel - Serum or Plasma [facility] Work Phone: Comment on above: Expected: 10/16/2024, Expires: Start: 10-16-2024 End: 01-15-2025 Lipid 1996 panel - Serum or Plasma [facility] Comment on above: Expected: 10/16/2024, Expires: Start: 10-16-2024 End: 01-15-2025 Thyrotropin [Units/volume] in Serum or Plasma [facility] Comment on above: Expected: 10/16/2024, Expires: Start: 07-23-2024 Behavioral Health Screening Behavioral Health Screening [facility] Comment on above: Postponed from 07/24/2023 (Declined at t his time) Start: 07-12-2024 End: 10-11-2024 Hepatic function 2000 panel - Serum or Plasma HEPATIC FUNCTION PNL Lab Routine Hepatic steatosis Elevated liver enzymes Expected: 07/12/2024, Expires: 10/11/2024 [facility] Work Phone: Comment on above: Expected: 07/12/2024, Expires: Start: 07-12-2024 End: 10-11-2024 LIVER FIBROSIS AND ACTIVITY LIVER FIBROSIS AND ACTIVITY Lab Routine Hepatic steatosis Elevated liver enzymes Expected: 07/12/2024, Expires: 10/11/2024 [facility] Comment on above: Expected: 07/12/2024, Expires: Start: 07-12-2024 End: 07-12-2024 Patient encounter procedure 07/12/2024 9:15 AM EST Office Visit [facility] [place] [address] [place] [id number] Itzel Kidd, TRANSPORTATION DEPARTMENT HEAD.[facility] [address] [place], [place] [id number] follow up, elevated liver enzymes [facility] [place] Comment on above: follow up, elevated liver enzymes Start: 07-02-2024 End: 07-02-2024 Patient encounter procedure 07/02/2024 9:45 AM EST Office Visit Podiatry [address] [place], [place] [phone] Willy Alegre [address] [place] [id number] Plantar fasciitis [M72.2] Podiatry Comment on above: Plantar fasciitis [M72.2] Start: 03-24-2024 Influenza vaccination [facility] Start: 12-12-2023 End: 03-12-2024 Alpha 1 antitrypsin [Mass/volume] in Serum or Plasma [id number] Lab Routine Elevated liver enzymes Hepatic steatosis Expected: 12/12/2023, Expires: 03/12/2024 [facility] Work Phone: Comment on above: Expected: 12/12/2023, Expires: Start: 12-12-2023 End: 03-12-2024 Ceruloplasmin [Mass/volume] in Serum or Plasma CERULOPLASMIN Lab Routine Elevated liver enzymes Hepatic steatosis Expected: 12/12/2023, Expires: 03/12/2024 [facility] Comment on above: Expected: 12/12/2023, Expires: Start: 12-12-2023 End: 03-12-2024 Chronic hepatitis differentiation between hepatitis B and C virus panel - Serum or Plasma HEP REMOTE PANEL BL Lab Routine Elevated liver enzymes Hepatic steatosis Expected: 12/12/2023, Expires: 03/12/2024 [facility] Comment on above: Expected: 12/12/2023, Expires: 4 Start: 12-12-2023 End: 03-12-2024 Ferritin [Mass/volume] in Serum or Plasma FERRITIN Lab Routine Elevated liver enzymes Hepatic steatosis Expected: 12/12/2023, Expires: 03/12/2024 [facility] Comment on above: Expected: 12/12/2023, Expires: Start: 12-12-2023 End: 03-12-2024 Iron and Iron binding capacity panel - Serum or Plasma IRON AND TIBC Lab Routine Elevated liver enzymes Hepatic steatosis Expected: 12/12/2023, Expires: 03/12/2024 [facility] Comment on above: Expected: 12/12/2023, Expires: 4 Start: 12-12-2023 End: 03-12-2024 LIVER FIBROSIS AND ACTIVITY LIVER FIBROSIS AND ACTIVITY Lab Routine Elevated liver enzymes Hepatic steatosis Expected: 12/12/2023, Expires: 03/12/2024 [facility] Comment on above: Expected: 12/12/2023, Expires: Start: 12-12-2023 End: 03-12-2024 Mitochondria Ab [Presence] in Serum by Immunofluorescence MITOCHONDRIAL M2 IGG SERUM Lab Routine Elevated liver enzymes Hepatic steatosis Expected: 12/12/2023, Expires: 03/12/2024 [facility] Comment on above: Expected: 12/12/2023, Expires: 4 Start: 12-12-2023 End: 03-12-2024 Nuclear Ab [Presence] in Serum by Immunoassay CANDIDA BLOOD Lab Routine Elevated liver enzymes Hepatic steatosis Expected: 12/12/2023, Expires: 03/12/2024 [facility] Comment on above: Expected: 12/12/2023, Expires: 4 Start: 12-12-2023 End: 03-12-2024 Smooth muscle Ab [Presence] in Serum SMOOTH MUSCLE AB SCR Lab Routine Elevated liver enzymes Hepatic steatosis Expected: 12/12/2023, Expires: 03/12/2024 [facility] Comment on above: Expected: 12/12/2023, Expires: 4 Start: 11-01-2023 End: 10-31-2024 HEP ACUTE PANEL/RNA HEP ACUTE PANEL/RNA Lab Routine Elevated liver enzymes Expected: 11/01/2023, Expires: 10/31/2024 [facility] Work Phone: Comment on above: Expected: 11/01/2023, Expires: 5 Start: 11-01-2023 End: 10-31-2024 Hepatic function 2000 panel - Serum or Plasma HEPATIC FUNCTION PNL Lab Routine Elevated liver enzymes Expected: 11/01/2023, Expires: 10/31/2024 [facility] Work Phone: Comment on above: Expected: 11/01/2023, Expires: 5 Start: 03-24-2023 Covid-19 Vaccine () Covid-19 Vaccine () [facility] Start: 03-24-2023 Influenza vaccination Influenza Vaccine (#1) [facility] Start: 12-18-2022 End: 02-17-2023 CBC panel - Blood by Automated count CBC Lab Routine Leukocytosis, unspecified type Expected: 12/18/2022, Expires: 02/17/2023 [facility] Work Phone: Comment on above: Expected: 12/18/2022, Expires: 3 Start: 12-18-2022 End: 02-17-2023 Comprehensive metabolic 2000 panel - Serum or Plasma COMP METABOLIC PANEL Lab Routine Elevated liver enzymes Expected: 12/18/2022, Expires: 02/17/2023 [facility] Work Phone: Comment on above: Expected: 12/18/2022, Expires: 3 Start: 10-06-2022 End: 09-08-2023 Hepatic function 2000 panel - Serum or Plasma HEPATIC FUNCTION PNL Lab Routine Elevated liver enzymes Expected: 10/06/2022, Expires: 09/08/2023 [facility] Work Phone: Comment on above: Expected: 10/06/2022, Expires: 4 Start: 08-23-2022 End: 10-23-2022 Comprehensive metabolic 2000 panel - Serum or Plasma [facility] Work Phone: Comment on above: Expected: 08/23/2022, Expires: 3 Start: 08-23-2022 End: 10-23-2022 LIPID PANEL, NONFASTING [facility] Work Phone: Comment on above: Expected: 08/23/2022, Expires: 3 Start: 07-24-2022 DEPRESSION ASSESSMENT DEPRESSION ASSESSMENT [facility] Start: 10-26-2020 HPV Vaccine (2 - Male 3-dose series) HPV Vaccine (2 - Male 3-dose series) [facility] Start: 2012 Anxiety Screening Anxiety Screening [facility] Start: 2012 BP Controlled (<130/80) BP Controlled (<130/80) [facility] in Start: 2012 Depression Screening Depression Screening [facility] Bacteria identified in Urine by Culture URINE CULTURE Microbiology Routine Frequent urination 08/23/2022 2:17 PM EST [facility] Work Phone: Liver ultrasound attenuation by transient elastography DDI VIBRATION CONTROLLED TRANSIENT ELASTOGRAPHY (VCTE) Endoscopy Routine Elevated liver enzymes Hepatic steatosis Ordered: 12/12/2023 [facility] Comment on above: Ordered: 12/12/2023 XR Foot - left AP an d Lateral and oblique XR FOOT GENERAL 3V AP/LAT/OBL LEFT Radiology Routine Plantar fasciitis 05/28/2024 11:05 AM EST [facility] Work Phone: End: 06-27-2025 XR Foot - left AP and Lateral and oblique XR FOOT GENERAL 3V AP/LAT/OBL LEFT Radiology Routine Plantar fasciitis 1 Occurrences starting 05/28/2024 until 06/27/2025 [facility] Work Phone: Comment on above: 1 Occurrences starting 05/28/2024 until [facility] Immunization Date Immunization Notes Care Provider Adela michaels 04-15-2024 influenza virus vacc ine, unspecified formulation Xr [place] Work Phone: [facility] 06-17-2022 Influenza, injectabl e, Madin Donna Canine Kidney, preservative free, quadrivalent Quentin Mcledo MD Work Phone: [facility] Work Phone: 06-17-2022 influenza virus vacc ine, unspecified formulation Us 2 Work Phone: [facility] 04-07-2021 influenza, injectabl e, quadrivalent, contains preservative Hallie Haagen TRANSPORTATION DEPARTMENT HEAD.[employer] Work Phone: [facility] 09-28-2020 Human Papillomavirus 9-valent vaccine Hallie Haagen TRANSPORTATION DEPARTMENT HEAD.[employer]ER Work Phone: [facility] 06-07-2020 influenza, seasonal, injectable Hallie Haagen TRANSPORTATION DEPARTMENT HEAD.[employer]OTH CAR[employer]ER Work Phone: [facility] 05-23-2020 Influenza, injectabl e, Madin Drain Canine Kidney, preservative free, quadrivalent Quentin Mcleod MD Work Phone: [facility] Work Phone: 05-27-2019 influenza, injectabl e, quadrivalent, contains preservative Hallie Haagen TRANSPORTATION DEPARTMENT HEAD.[employer]ER Work Phone: [facility] 04-07-2018 influenza, injectabl e, quadrivalent, contains preservative Hallie Haagen TRANSPORTATION DEPARTMENT HEAD.[facility] Work Phone: [facility] 04-07-2018 tetanus toxoid, redu drew diphtheria toxoid, and acellular pertussis vaccine, adsorbed Hallie Haagen TRANSPORTATION DEPARTMENT HEAD.[employer]ER Work Phone: [facility] 01-27-2012 hepatitis A vaccine, unspecified formulation Hallie Haagen TRANSPORTATION DEPARTMENT HEAD.[facility] Work Phone: [facility] 01-27-2012 Meningococcal, MCV4, unspecified conjugate formulation(groups A, C, Y and W-135) Hallie Haagen TRANSPORTATION DEPARTMENT HEAD.[facility] Work Phone: [facility] 11-27-2009 hepatitis A vaccine, unspecified formulation Hallie Haagen TRANSPORTATION DEPARTMENT HEAD.[facility] Work Phone: [facility] Work Phone: 10-20-2006 Meningococcal, MCV4, unspecified conjugate formulation(groups A, C, Y and W-135) Hallie Haagen TRANSPORTATION DEPARTMENT HEAD.[facility] Work Phone: [facility] Work Phone: 11-01-2005 tetanus toxoid, redu drew diphtheria toxoid, and acellular pertussis vaccine, adsorbed Hallie Haagen TRANSPORTATION DEPARTMENT HEAD.[facility] Work Phone: [facility] Work Phone: 10-27-1999 diphtheria, tetanus toxoids and acellular pertussis vaccine Hallie Haagen TRANSPORTATION DEPARTMENT HEAD.[facility] Work Phone: [facility] Work Phone: 10-27-1999 measles, mumps and rubella virus vaccine Hallie Haagen TRANSPORTATION DEPARTMENT HEAD.[facility] Work Phone: [facility] Work Phone: 10-27-1999 poliovirus vaccine, inactivated Hallie Haagen TRANSPORTATION DEPARTMENT HEAD.[facility] Work Phone: [facility] Work Phone: 07-24-1999 Chicken Pox (disease) Wesley y Haagen TRANSPORTATION DEPARTMENT HEAD.[facility] Work Phone: [facility] Work Phone: 05-12-1999 influenza virus vacc ine, unspecified formulation Hallie Haagen TRANSPORTATION DEPARTMENT HEAD.[employer] Work Phone: [facility] Work Phone: 07-06-1998 influenza virus vacc ine, unspecified formulation Hallie Haagen TRANSPORTATION DEPARTMENT HEAD.[employer] CAR[employer]ER Work Phone: [facility] Work Phone: 04-19-1997 influenza virus vacc ine, unspecified formulation Hallie Haagen TRANSPORTATION DEPARTMENT HEAD.[employer] CAR[employer]ER Work Phone: [facility] Work Phone: 06-24-1996 influenza virus vacc ine, unspecified formulation Hallie Haagen TRANSPORTATION DEPARTMENT HEAD.[facility] Work Phone: [facility] Work Phone: 05-02-1996 influenza virus vacc ine, unspecified formulation Hallie Haagen TRANSPORTATION DEPARTMENT HEAD.CLOTH CARRIER Work Phone: [facility] Work Phone: 02-20-1996 diphtheria, tetanus toxoids and acellular pertussis vaccine Hallie Haagen TRANSPORTATION DEPARTMENT HEAD.[employer] Work Phone: [facility] Work Phone: 12-12-1995 measles, mumps and rubella virus vaccine Hallie Haagen TRANSPORTATION DEPARTMENT HEAD.[employer] CAR[employer]ER Work Phone: [facility] Work Phone: 05-03-1995 diphtheria, tetanus toxoids and acellular pertussis vaccine Hallie Haagen TRANSPORTATION DEPARTMENT HEAD.[employer]ER Work Phone: [facility] Work Phone: 05-03-1995 hepatitis B vaccine, pediatric or pediatric/adolescent dosage Hallie Haagen TRANSPORTATION DEPARTMENT HEAD.[employer] Work Phone: [facility] Work Phone: 05-03-1995 poliovirus vaccine, inactivated Hallie Haagen TRANSPORTATION DEPARTMENT HEAD.[employer] Work Phone: [facility] Work Phone: 03-01-1995 diphtheria, tetanus toxoids and acellular pertussis vaccine Hallie Haagen TRANSPORTATION DEPARTMENT HEAD.[employer] CAR[employer]ER Work Phone: [facility] Work Phone: 03-01-1995 poliovirus vaccine, inactivated Hallie Haagen TRANSPORTATION DEPARTMENT HEAD.[employer] CAR[employer]ER Work Phone: [facility] Work Phone: 1994 diphtheria, tetanus toxoids and acellular pertussis vaccine Hallie Haagen TRANSPORTATION DEPARTMENT HEAD.[employer]OTH CAR[employer]ER Work Phone: [facility] Work Phone: 1994 hepatitis B vaccine, pediatric or pediatric/adolescent dosage Hallie Haagen TRANSPORTATION DEPARTMENT HEAD.[employer] Work Phone: [facility] Work Phone: 1994 poliovirus vaccine, inactivated Hallie Haagen TRANSPORTATION DEPARTMENT HEAD.CLOTH CAR[employer]ER Work Phone: [facility] Work Phone: 1994 hepatitis B vaccine, pediatric or pediatric/adolescent dosage Hallie Haagen TRANSPORTATION DEPARTMENT HEAD.[facility] Work Phone: [facility] Work Phone: Payers Date Payer Category Payer [employer] BLUE CARD PPO OOS [id number]. [id number] 2022 Unknown [employer]UE CARD PPO OOS [id number] 2022-Present [phone] [id number] [place] [id number] PPO [id number] 2022 Unknown [id number] Social History Date Type Detail Facility Start: 08-23-2022 Tobacco smoking stat us NHIS Never smoked tobacco [facility] Start: 08-23-2022 Tobacco use and exposure Smoke less tobacco non-user [facility] Start: 08-23-2022 End: 12-11-2024 Alcohol intake Current drinker of alcohol (finding) [facility] Start: 09-18-2019 History SDOH Alcohol Frequency 3 [facility] Start: 09-18-2019 End: 06-29-2020 History SDOH Alcohol Std Drinks 1 [facility] Start: 09-18-2019 History SDOH Social Connections Phone 4 [facility] Start: 09-18-2019 End: 06-29-2020 History SDOH Social Connections Membership 2 [facility] Start: 09-18-2019 History SDOH Social Connections Living 7 [facility] Start: 09-18-2019 History SDOH Physica l Activity DPW 6 [facility] Start: 09-18-2019 Education 17 [facility] Start: 04-07-2021 Alcohol Comment Occassional, o n the weekends [facility] Start: 1995 Sex Assigned At Male C [facility] Start: 09-18-2019 End: 11-28-2022 History of Social function [facility] Start: 09-18-2019 End: 11-28-2022 Social connection and isolation panel [facility] Do you belong to any clubs or organizations such as samaritan groups, unions, fraternal or athletic groups, or school groups? No [facility] Attends Club or Organization Meetings Not on file [facility] Are you now , , , , never or living with a partner? Never [facility] How often to you hav e a drink containing alcohol? 2-4 times a month [facility] How many standard dr inks containing alcohol do you have on a typical day? 1 or 2 [facility] How often do you hav e 6 or more drinks on 1 occasion? Never [facility] How hard is it for y ou to pay for the very basics like food, housing, medical care, and heating Not very hard [facility] Do you feel stress - tense, restless, nervous, or anxious, or unable to sleep at night because your mind is troubled all the time - these days [OSQ] To some extent [facility] (I/We) worried wheth er (my/our) food would run out before (I/we) got money to buy more. Never true [facility] Start: 03-06-2019 Gender identity Identifies as male gender (finding) [facility] Start: 03-06-2019 Sexual orientation Heterosexual (lori farmer) [facility] Do you belong to any clubs or organizations such as samaritan groups, unions, fraternal or athletic groups, or school groups? Yes [facility] Do you feel stress - tense, restless, nervous, or anxious, or unable to sleep at night because your mind is troubled all the time - these days [OSQ] Only a little [facility] How hard is it for y ou to pay for the very basics like food, housing, medical care, and heating Somewhat hard [facility] Functional Status Date Assessment Result Facility 11-06-2024 Total score [AUDIT-C] 0 11/07/19 25 2:37 PM EDT [facility] 11-06-2024 How often to you hav e a drink containing alcohol? Never 11/06/2024 2:37 PM EDT User, Mychart Never [facility] 11-06-2024 Functional status Patient does n ot drink 11/06/2024 2:37 PM EDT User, [facility] Patient does not drink [facility] 11-06-2024 How often do you hav e 6 or more drinks on 1 occasion? Never 11/06/2024 2:37 PM EDT User, Mychart Never [facility] 07-19-2024 Liver fibr score Ser Pl Calc.FibroSure 0.10 [facility] Comment on above: Order Comment: Speci men Type: BLOOD SPECIMEN Ordering Facility: [facility] Address: [address] [place] [address] Performed By: #### L IVFIB #### [facility] CLIA [id number] [address] [place], [place] [address] [place] 07-19-2024 Necroinflammatory ac t score SerPl 0.49 [facility] Comment on above: Order Comment: Speci men Type: BLOOD SPECIMEN Ordering Facility: [facility] Address: [address] [place] [address] Performed By: #### L IVFIB #### [facility] CLIA [id number] [address] [place], [place] [address] [address] [place] 07-20-2014 Are you deaf, or do you have serious difficulty hearing No 07/20/2014 2:04 PM Ju Mosley LPN No [facility] 07-20-2014 Are you blind, or do you have serious difficulty seeing, even when wearing glasses No 07/20/2014 2:04 PM Ju Mosley LPN No [facility] 07-20-2014 Do you have serious difficulty walking or climbing stairs No 07/20/2014 2:04 PM Ju Mosley LPN No [facility] 07-20-2014 Do you have difficul ty dressing or bathing No 07/20/2014 2:04 PM Ju Mosley LPN No [facility] 07-20-2014 Because of a physica l, mental, or emotional condition, do you have difficulty doing errands alone such as visiting a physician's office or shopping No 07/20/2014 2:04 PM Ju Mosley LPN No [facility] Mental Status Date Assessment Result Facility 07-20-2014 Because of a physica l, mental, or emotional condition, do you have serious difficulty concentrating, remembering, or making decisions No 07/20/2014 2:04 PM Ju Mosley LPN No [facility] Clinical Notes 04-10-2018 to 01-08-2025 Telephone Encounter - Reyna Mccullough RN - 01/08/2025 11:45 AM EDTTelephone Encounter - Reyna Mccullough RN - 01/08/2025 11:45 AM Quentin Crockett MD - 10/16/2024 1:07 PM EDTPatient Instructions Note Date & Type Note Facility 01-08-2025 Telephone encounter Note Pt called in and reports he wanted to switch pharmacies. He states he is at [facility] right now, but would like to go to [facility] in [place]. I changed pharmacies in computer for Pt. I updated pharmacy in pharmacy section. I let Pt know to call [facility] and let them know he is moving to them and have them [facility] and they can call and transfer the medication. Reyna Mccullough RN [facility] 01-08-2025 Miscellaneous Notes Pt called in and reports he wanted to switch pharmacies. He states he is at [facility] right now, but would like to go to [facility] in [place]. I changed pharmacies in computer for Pt. I updated pharmacy in pharmacy section. I let Pt know to call [facility] and let them know he is moving to them and have them call [facility] and they can call and transfer the medication. Reyna Mcculolugh RN documented in this encounter [facility] 12-11-2024 Note HNO ID: [id number] Author: HALLIE FERNANDEZ APRN.[employer] Service: ? Author Type: Nurse Practitioner Type: Progress Notes Filed: 12/11/2024 13:48 Note Text: This is a 29 year old male who presents today with: Patient presents with: Recheck: 4 week BP check HISTORY OF PRESENT ILLNESS: Juan Chapa is a 29 year old male. Patient presents with: Recheck: 4 week BP check HTN Not monitoring BP at home, no BP cuff at home Will monitor BP at home from this visit Lisinopril 10 mg tab Pt. working on DASH and low sodium diet and exercises 4-5 time a week for an HR No CP/SOB/palpitations. Denies side effects to medication. Right leg lesion. Refers just found it a few weeks ago. Not painful, healing PAST MEDICAL HISTORY: PAST MEDICAL HISTORY Diagnosis Date Elevated liver function tests 04/10/2018 04/07/18: ALT 97 AST 44 ?fatty liver disease Obesity, Class III, BMI 40-49.9 (morbid obesity) 04/07/2018 PAST SURGICAL HISTORY Procedure Laterality Date ADENOIDECTOMY PRIMARY Adenoidectomy CIRCUMCISION TONSILLECTOMY PRIMARY/SECONDARY Tonsillectomy ALLERGIES Augmentin [Amoxicillin-Pot Clavulanate], Dust Mites, and Zithromax [Azithromycin] MEDICATIONS Current Outpatient Medications Medication Sig lisinopril (ZESTRIL) 10 mg tablet Take 1 tablet by mouth once daily. ibuprofen (MOTRIN) 200 mg tablet Take 1-2 tablets by mouth every 6 hours as needed for pain (Take with food.). cetirizine hcl(ZYRTEC 10 MG TAB) Take one(1) tablet daily. No current facility-administered medications for this visit. FAMILY HISTORY Problem Relation Age of Onset Asthma Maternal Grandmother other (MVP [Other]) Mother None Father None Maternal Grandfather Heart Paternal Grandmother Heart Paternal Grandfather None Sister None Brother Social History Tobacco Use Smoking status: Never Smokeless tobacco: Never Vaping Use Vaping status: Never Used Substance Use Topics Alcohol use: Yes Alcohol/week: 1.0 - 2.0 standard drink of alcohol Types: 1 - 2 Cans of Beer (12oz) per week Comment: Occassional, on the weekends Drug use: No EXAM: BP 125/81 Pulse 88 Resp 16 SpO2 98% PHYSICAL EXAM: General Appearance: Well appearing, alert, in no acute distress, well-hydrated, well nourished.. Skin: Skin color, texture, turgor normal, no suspicious rashes or lesions. Red papular lesion on the right anterior leg. Head: Normocephalic, no masses, lesions, tenderness or abnormalities. Eyes: Anicteric sclera. Extraocular movements are intact. . Ears: External ears normal, canals clear. Lungs: Lungs clear to auscultation. No wheezing, rhonchi, rales.. Heart: RRR without murmur, gallop, or rubs. No ectopy. Extremities: No deformities, edema, skin discoloration, clubbing or cyanosis. Good capillary refill. . Neurologic: Gait normal. ASSESSMENT/PLAN: 1. Primary hypertension - ICD9: 401.9, ICD10: I10 (primary diagnosis) - Controlled - Continue current medications - Recommend home blood pressure monitoring, to bring results to next visit - Encouraged sodium restriction, DASH or Mediterranean diet - Recommend regular aerobic exercise - LISINOPRIL 10 MG TABLET Recheck in 6 months. 2. Skin lesion - ICD9: 709.9, ICD10: L98.9 Appears as possible epidermal cyst. Continue to monitor area. If becomes painful or increases in size, notify provider. Discussed treatment plan and patient voices understanding. Patient's questions answered appropriately. Medications and potential side effects were discussed and patient voices understanding. Return to the office as scheduled or as needed for worsening/no improvement. Hallie Fernandez APRN.[employer] 11-13-2024 Note HNO ID: [id number] Author: HALLIE FERNANDEZ APRN.[place]ER Service: ? Author Type: Nurse Practitioner Type: Progress Notes Filed: 11/13/2024 17:23 Note Text: This is a 29 year old male who presents today with: Patient presents with: Recheck: 4 week BP check HISTORY OF PRESENT ILLNESS: Juan Chapa is a 29 year old male. Patient presents with: Recheck: 4 week BP check HTN: Patient is compliant with meds n/a Monitors bp at home: No. Denies side effects: n/a. Chest pain: No. Dyspnea: No. Edema: No. Palpitations: No. Syncope: No. Headache: No. Dizziness: No. PAST MEDICAL HISTORY: PAST MEDICAL HISTORY Diagnosis Date Elevated liver function tests 04/10/2018 04/07/18: ALT 97 AST 44 ?fatty liver disease Obesity, Class III, BMI 40-49.9 (morbid obesity) 04/07/2018 PAST SURGICAL HISTORY Procedure Laterality Date ADENOIDECTOMY PRIMARY Adenoidectomy CIRCUMCISION TONSILLECTOMY PRIMARY/SECONDARY Tonsillectomy ALLERGIES Augmentin [Amoxicillin-Pot Clavulanate], Dust Mites, and Zithromax [Azithromycin] MEDICATIONS Current Outpatient Medications Medication Sig lisinopril (ZESTRIL) 10 mg tablet Take 1 tablet by mouth once daily. ibuprofen (MOTRIN) 200 mg tablet Take 1-2 tablets by mouth every 6 hours as needed for pain (Take with food.). cetirizine hcl(ZYRTEC 10 MG TAB) Take one(1) tablet daily. No current facility-administered medications for this visit. FAMILY HISTORY Problem Relation Age of Onset Asthma Maternal Grandmother other (MVP [Other]) Mother None Father None Maternal Grandfather Heart Paternal Grandmother Heart Paternal Grandfather None Sister None Brother Social History Tobacco Use Smoking status: Never Smokeless tobacco: Never Vaping Use Vaping status: Never Used Substance Use Topics Alcohol use: Yes Alcohol/week: 1.0 - 2.0 standard drink of alcohol Types: 1 - 2 Cans of Beer (12oz) per week Comment: Occassional, on the weekends Drug use: No EXAM: BP 131/88 Pulse 93 Resp 16 SpO2 99% PHYSICAL EXAM: General Appearance: Well appearing, alert, in no acute distress, well-hydrated, well nourished.. Skin: Skin color, texture, turgor normal, no suspicious rashes or lesions. Head: Normocephalic, no masses, lesions, tenderness or abnormalities. Eyes: Anicteric sclera. Extraocular movements are intact. . Lungs: Lungs clear to auscultation. No wheezing, rhonchi, rales.. Heart: RRR without murmur, gallop, or rubs. No ectopy. Extremities: No deformities, edema, skin discoloration, clubbing or cyanosis. Good capillary refill. . Neurologic: Gait normal. ASSESSMENT/PLAN: 1. Primary hypertension - ICD9: 401.9, ICD10: I10 - New diagnosis - Start lisinopril - Recommend home blood pressure monitoring, to bring results to next visit - Encouraged sodium restriction, DASH or Mediterranean diet - Recommend regular aerobic exercise and weight loss. - LISINOPRIL 10 MG TABLET Recheck in 1 month. Discussed treatment plan and patient voices understanding. Patient's questions answered appropriately. Medications and potential side effects were discussed and patient voices understanding. Return to the office as scheduled or as needed for worsening/no improvement. Hallie Fernandez APRN.[facility] 10-16-2024 Note HNO ID: [id number] Author: QUENTIN MCLEOD MD Service: ? Author Type: Physician Type: Progress Notes Filed: 10/16/2024 13:26 Note Text: Patient presents with: Physical HPI: Patient presents today for office visit for physical. Seeing gi for his elevated liver enzymes. Work up shows fatty liver. Discussed avoiding etoh and weight loss to help. Bp is up on arrival. No symptoms MEDICATIONS: Current Outpatient Medications Medication Sig ibuprofen (MOTRIN) 200 mg tablet Take 1-2 tablets by mouth every 6 hours as needed for pain (Take with food.). cetirizine hcl(ZYRTEC 10 MG TAB) Take one(1) tablet daily. No current facility-administered medications for this visit. ALLERGIES: ALLERGIES Allergen Reactions Augmentin [Amoxicil* Dust Mites Zithromax [Azithrom* PAST MEDICAL HISTORY Diagnosis Date Elevated liver function tests 04/10/2018 04/07/18: ALT 97 AST 44 ?fatty liver disease Obesity, Class III, BMI 40-49.9 (morbid obesity) (HCC) 04/07/2018 PAST SURGICAL HISTORY Procedure Laterality Date ADENOIDECTOMY PRIMARY Adenoidectomy CIRCUMCISION TONSILLECTOMY PRIMARY/SECONDARY Tonsillectomy FAMILY HISTORY Problem Relation Age of Onset Asthma Maternal Grandmother other (MVP [Other]) Mother None Father None Maternal Grandfather Heart Paternal Grandmother Heart Paternal Grandfather None Sister None Brother Social History Tobacco Use Smoking status: Never Smokeless tobacco: Never Vaping Use Vaping status: Never Used Substance Use Topics Alcohol use: Yes Alcohol/week: 1.0 - 2.0 standard drink of alcohol Types: 1 - 2 Cans of Beer (12oz) per week Comment: Occassional, on the weekends Drug use: No Reviewed current medications, allergies, past medical history, surgical history, family history and social history today. REVIEW OF SYSTEMS GENERAL: No weight loss, malaise or fevers HEENT: Negative for frequent or significant headaches, No changes in hearing or vision, no nose bleeds or other nasal problems NECK: Negative for lumps, goiter, pain and significant neck swelling RESPIRATORY: Negative for cough, hemoptysis, wheezing, COPD, dyspnea or shortness of breath CARDIOVASCULAR: Negative for chest pain, leg swelling, hypertension, CHF or palpitations GI: No nausea, vomiting, or diarrhea : No history of dysuria, frequency or incontinence SKIN: Negative for lesions, rash, and itching HEMATOLOGY/LYMPHOLOGY: Negative for prolonged bleeding, bruising easily or swollen nodes NEURO: No history of headaches, syncope, paralysis, seizures or tremors All other reviewed and negative other than HPI. HEALTH MAINTENANCE: Reviewed health maintenance issues today and recommended the following in detail. Depression Screening Never done Anxiety Screening some recent anxiety with moving. VITALS: BP 128/94 Pulse 87 Wt (!) 156 kg (344 lb) SpO2 97% BMI 45.39 kg/m? Last 4 Encounter Wt Readings: Date: Wt: 10/16/2024 156 kg (344 lb) 07/12/2024 155.6 kg (343 lb) 05/08/2024 157.4 kg (347 lb) 12/12/2023 156.5 kg (345 lb) PHYSICAL EXAMINATION: General appearance: Well appearing, alert, in no acute distress, well-hydrated, well nourished. Skin: Skin color, texture, turgor normal, no suspicious rashes or lesions Head: Normocephalic, no masses, lesions, tenderness or abnormalities Eyes: Anicteric sclera. Pupils are equally round and reactive to light. Extraocular movements are intact. Ears: External ears normal, canals clear Nose/Sinuses: Nares normal, septum midline, mucosa normal, no drainage or sinus tenderness Oropharynx: Lips, mucosa, and tongue normal, teeth and gums normal, oropharynx normal Neck: Supple, no adenopathy; thyroid symmetric, normal size, no bruits Back: Normal exam Lungs: Lungs clear to auscultation. No wheezing, rhonchi, rales Heart: RRR without murmur, gallop, or rubs. No ectopy Abdomen: Normal abdominal exam, Abdomen soft, non-tender. Bowel sounds normal. No masses, organomegaly Extremities: No deformities, edema, skin discoloration, clubbing or cyanosis. Good capillary refill. Musculoskeletal: No joint swelling, deformity, or tenderness Peripheral pulses: Normal Neuro: Gait normal. Reflexes normal and symmetric. Sensation grossly intact. ASSESSMENT/PLAN: 1. Well adult exam - ICD9: V70.0, ICD10: Z00.00 (primary diagnosis) - Counseled on healthy diet and regular exercise 2. Encounter for screening examination for other mental health and behavioral disorders - ICD9: V79.8, ICD10: Z13.39 - ANXIETY SCREENING 3. Hyperlipidemia with target LDL less than 130 - ICD9: 272.4, ICD10: E78.5 - Control undetermined, due for labs - check labs. 4. Class 3 severe obesity with body mass index (BMI) of 45.0 to 49.9 in adult, unspecified obesity type, unspecified whether serious comorbidity present (HCC) - ICD9: 278.01, V85.42, ICD10: E66.813, E66.01, Z68.42 - discussed weight loss. 5. Elevated li (more content not included)... [facility] 10-16-2024 History of Presen t illness Narrative Patient presents with: Physical HPI: Patient presents today for office visit for physical. Seeing gi for his elevated liver enzymes. Work up shows fatty liver. Discussed avoiding etoh and weight loss to help. Bp is up on arrival. No symptoms MEDICATIONS: Current Outpatient Medications Medication Sig ibuprofen (MOTRIN) 200 mg tablet Take 1-2 tablets by mouth every 6 hours as needed for pain (Take with food.). cetirizine hcl(ZYRTEC 10 MG TAB) Take one(1) tablet daily. No current facility-administered medications for this visit. ALLERGIES: ALLERGIES Allergen Reactions Augmentin [Amoxicil* Dust Mites Zithromax [Azithrom* PAST MEDICAL HISTORY Diagnosis Date Elevated liver function tests 04/10/2018 04/07/18: ALT 97 AST 44 ?fatty liver disease Obesity, Class III, BMI 40-49.9 (morbid obesity) (HCC) 04/07/2018 PAST SURGICAL HISTORY Procedure Laterality Date ADENOIDECTOMY PRIMARY <AGE 12 Adenoidectomy CIRCUMCISION TONSILLECTOMY PRIMARY/SECONDARY <AGE 11 Tonsillectomy FAMILY HISTORY Problem Relation Age of Onset Asthma Maternal Grandmother other (MVP [Other]) Mother None Father None Maternal Grandfather Heart Paternal Grandmother Heart Paternal Grandfather None Sister None Brother Social History Tobacco Use Smoking status: Never Smokeless tobacco: Never Vaping Use Vaping status: Never Used Substance Use Topics Alcohol use: Yes Alcohol/week: 1.0 - 2.0 standard drink of alcohol Types: 1 - 2 Cans of Beer (12oz) per week Comment: Occassional, on the weekends Drug use: No Reviewed current medications, allergies, past medical history, surgical history, family history and social history today. REVIEW OF SYSTEMS GENERAL: No weight loss, malaise or fevers HEENT: Negative for frequent or significant headaches, No changes in hearing or vision, no nose bleeds or other nasal problems NECK: Negative for lumps, goiter, pain and significant neck swelling RESPIRATORY: Negative for cough, hemoptysis, wheezing, COPD, dyspnea or shortness of breath CARDIOVASCULAR: Negative for chest pain, leg swelling, hypertension, CHF or palpitations GI: No nausea, vomiting, or diarrhea : No history of dysuria, frequency or incontinence SKIN: Negative for lesions, rash, and itching HEMATOLOGY/LYMPHOLOGY: Negative for prolonged bleeding, bruising easily or swollen nodes NEURO: No history of headaches, syncope, paralysis, seizures or tremors All other reviewed and negative other than HPI. HEALTH MAINTENANCE: Reviewed health maintenance issues today and recommended the following in detail. Depression Screening Never done Anxiety Screening some recent anxiety with moving. VITALS: BP 128/94 Pulse 87 Wt (!) 156 kg (344 lb) SpO2 97% BMI 45.39 kg/m Last 4 Encounter Wt Readings: Date: Wt: 10/16/2024 156 kg (344 lb) 07/12/2024 155.6 kg (343 lb) 05/08/2024 157.4 kg (347 lb) 12/12/2023 156.5 kg (345 lb) PHYSICAL EXAMINATION: General appearance: Well appearing, alert, in no acute distress, well-hydrated, well nourished. Skin: Skin color, texture, turgor normal, no suspicious rashes or lesions Head: Normocephalic, no masses, lesions, tenderness or abnormalities Eyes: Anicteric sclera. Pupils are equally round and reactive to light. Extraocular movements are intact. Ears: External ears normal, canals clear Nose/Sinuses: Nares normal, septum midline, mucosa normal, no drainage or sinus tenderness Oropharynx: Lips, mucosa, and tongue normal, teeth and gums normal, oropharynx normal Neck: Supple, no adenopathy; thyroid symmetric, normal size, no bruits Back: Normal exam Lungs: Lungs clear to auscultation. No wheezing, rhonchi, rales Heart: RRR without murmur, gallop, or rubs. No ectopy Abdomen: Normal abdominal exam, Abdomen soft, non-tender. Bowel sounds normal. No masses, organomegaly Extremities: No deformities, edema, skin discoloration, clubbing or cyanosis. Good capillary refill. Musculoskeletal: No joint swelling, deformity, or tenderness Peripheral pulses: Normal Neuro: Gait normal. Reflexes normal and symmetric. Sensation grossly intact. ASSESSMENT/PLAN: 1. Well adult exam - ICD9: V70.0, ICD10: Z00.00 (primary diagnosis) - Counseled on healthy diet and regular exercise 2. Encounter for screening examination for other mental health and behavioral disorders - ICD9: V79.8, ICD10: Z13.39 - ANXIETY SCREENING 3. Hyperlipidemia with target LDL less than 130 - ICD9: 272.4, ICD10: E78.5 - Control undetermined, due for labs - check labs. 4. Class 3 severe obesity with body mass index (BMI) of 45.0 to 49.9 in adult, unspecified obesity type, unspecified whether serious comorbidity present (HCC) - ICD9: 278.01, V85.42, ICD10: E66.813, E66.01, Z68.42 - discussed weight loss. 5. Elevated liver enzymes - ICD9: 790.5, ICD10: R74.8 - check labs. Follow with gi. Avoid etoh and work on weight. 6. Screening for depression - ICD9: V79.0, ICD10: Z13.31 - done. 7. Elevated blood pressure reading without diagnosis of hypertension - ICD9: 796.2, ICD10: R03.0 - Encouraged dietary sodium restriction/DASH diet - Recommended regular aerobic exercise. - Recommend home blood pressure monitoring, to bring results in on next visit - Discussed need and benefit for weight loss. - Recheck in 1 month, sooner if needed. - Goal of BP <130/80 Quenitn Mcleod documented in this encounter [facility] 07-12-2024 Note HNO ID: [id number] Author: ITZEL KIDD APRN.CLOTH CARRIER Service: ? Author Type: Nurse Practitioner Type: Progress Notes Filed: 07/12/2024 09:15 Note Text: CHIEF COMPLAINT: Patient presents with: Elevated LFT's: Labs 12/14/23 HPI Juan Chapa is a 28 year old male here today for Elevated LFT's (Labs 12/14/23). Liver fibrosis panel showed F0 and Fibroscan showed kPa 23.2 with CAP 313. He did not want to get a liver biopsy at the time. Liver work up for autoimmune causes was negative. Currently he is feeling well. Denies any abdominal pain, n/v, jaundice, easy bruising or bleeding. He has lost a couple pounds. He has cut out alcohol. Current Outpatient Medications Medication Sig ibuprofen (MOTRIN) 200 mg tablet Take 1-2 tablets by mouth every 6 hours as needed for pain (Take with food.). cetirizine hcl(ZYRTEC 10 MG TAB) Take one(1) tablet daily. No current facility-administered medications for this visit. ALLERGIES Allergen Reactions Augmentin [Amoxicil* Dust Mites Zithromax [Azithrom* Social History Tobacco Use Smoking status: Never Smokeless tobacco: Never Vaping Use Vaping status: Never Used Substance Use Topics Alcohol use: Yes Alcohol/week: 1.0 - 2.0 standard drink of alcohol Types: 1 - 2 Cans of Beer (12oz) per week Comment: Occassional, on the weekends Drug use: No PAST MEDICAL HISTORY Diagnosis Date Elevated liver function tests 04/10/2018 04/07/18: ALT 97 AST 44 ?fatty liver disease Obesity, Class III, BMI 40-49.9 (morbid obesity) (HCC) 04/07/2018 PAST SURGICAL HISTORY Procedure Laterality Date ADENOIDECTOMY PRIMARY Adenoidectomy CIRCUMCISION TONSILLECTOMY PRIMARY/SECONDARY Tonsillectomy FAMILY HISTORY Problem Relation Age of Onset Asthma Maternal Grandmother other (MVP [Other]) Mother None Father None Maternal Grandfather Heart Paternal Grandmother Heart Paternal Grandfather None Sister None Brother REVIEW OF SYSTEMS Review of Systems All other systems reviewed and are negative. PHYSICAL EXAM Ht 6' 1" (1.85m) Wt 343 lb (155.6kg) BMI 45.26 kg/(m2). Physical Exam Constitutional: Appearance: Normal appearance. He is morbidly obese. HENT: Head: Normocephalic and atraumatic. Eyes: General: No scleral icterus. Cardiovascular: Rate and Rhythm: Normal rate and regular rhythm. Heart sounds: Normal heart sounds. Pulmonary: Breath sounds: Normal breath sounds. Abdominal: General: Abdomen is protuberant. Bowel sounds are normal. There is no distension. Palpations: Abdomen is soft. Tenderness: There is no abdominal tenderness. There is no guarding or rebound. Skin: General: Skin is warm and dry. Coloration: Skin is not jaundiced. Neurological: Mental Status: He is alert and oriented to person, place, and time. Psychiatric: Mood and Affect: Mood normal. Behavior: Behavior normal. ASSESSMENT: (R74.8) Elevated liver enzymes (primary encounter diagnosis) (K76.0) Hepatic steatosis 1. Hepatic steatosis - we discussed liver biopsy (risks, benefits) in detail and he would like to hold off for now and see what the repeat labs show first. - continue with weight loss efforts, increased exercise, and dietary changes - HEPATIC FUNCTION PNL; Future - LIVER FIBROSIS AND ACTIVITY; Future 2. Elevated liver enzymes - HEPATIC FUNCTION PNL; Future - LIVER FIBROSIS AND ACTIVITY; Future Follow up in office 1 year Itzel Kidd APRN.ALEXANDER July 12, 2024 9:13 AM [facility] 07-12-2024 History of Presen t illness Narrative CHIEF COMPLAINT: Patient presents with: Elevated LFT's: Labs 12/14/23 HPI Juan Chapa is a 28 year old male here today for Elevated LFT's (Labs 12/14/23). Liver fibrosis panel showed F0 and Fibroscan showed kPa 23.2 with CAP 313. He did not want to get a liver biopsy at the time. Liver work up for autoimmune causes was negative. Currently he is feeling well. Denies any abdominal pain, n/v, jaundice, easy bruising or bleeding. He has lost a couple pounds. He has cut out alcohol. Current Outpatient Medications Medication Sig ibuprofen (MOTRIN) 200 mg tablet Take 1-2 tablets by mouth every 6 hours as needed for pain (Take with food.). cetirizine hcl(ZYRTEC 10 MG TAB) Take one(1) tablet daily. No current facility-administered medications for this visit. ALLERGIES Allergen Reactions Augmentin [Amoxicil* Dust Mites Zithromax [Azithrom* Social History Tobacco Use Smoking status: Never Smokeless tobacco: Never Vaping Use Vaping status: Never Used Substance Use Topics Alcohol use: Yes Alcohol/week: 1.0 - 2.0 standard drink of alcohol Types: 1 - 2 Cans of Beer (12oz) per week Comment: Occassional, on the weekends Drug use: No PAST MEDICAL HISTORY Diagnosis Date Elevated liver function tests 04/10/2018 04/07/18: ALT 97 AST 44 ?fatty liver disease Obesity, Class III, BMI 40-49.9 (morbid obesity) (HCC) 04/07/2018 PAST SURGICAL HISTORY Procedure Laterality Date ADENOIDECTOMY PRIMARY <AGE 12 Adenoidectomy CIRCUMCISION TONSILLECTOMY PRIMARY/SECONDARY <AGE 11 Tonsillectomy FAMILY HISTORY Problem Relation Age of Onset Asthma Maternal Grandmother other (MVP [Other]) Mother None Father None Maternal Grandfather Heart Paternal Grandmother Heart Paternal Grandfather None Sister None Brother REVIEW OF SYSTEMS Review of Systems All other systems reviewed and are negative. PHYSICAL EXAM Ht 6' 1" (1.85m) Wt 343 lb (155.6kg) BMI 45.26 kg/(m^2). Physical Exam Constitutional: Appearance: Normal appearance. He is morbidly obese. HENT: Head: Normocephalic and atraumatic. Eyes: General: No scleral icterus. Cardiovascular: Rate and Rhythm: Normal rate and regular rhythm. Heart sounds: Normal heart sounds. Pulmonary: Breath sounds: Normal breath sounds. Abdominal: General: Abdomen is protuberant. Bowel sounds are normal. There is no distension. Palpations: Abdomen is soft. Tenderness: There is no abdominal tenderness. There is no guarding or rebound. Skin: General: Skin is warm and dry. Coloration: Skin is not jaundiced. Neurological: Mental Status: He is alert and oriented to person, place, and time. Psychiatric: Mood and Affect: Mood normal. Behavior: Behavior normal. ASSESSMENT: (R74.8) Elevated liver enzymes (primary encounter diagnosis) (K76.0) Hepatic steatosis 1. Hepatic steatosis - we discussed liver biopsy (risks, benefits) in detail and he would like to hold off for now and see what the repeat labs show first. - continue with weight loss efforts, increased exercise, and dietary changes - HEPATIC FUNCTION PNL; Future - LIVER FIBROSIS AND ACTIVITY; Future 2. Elevated liver enzymes - HEPATIC FUNCTION PNL; Future - LIVER FIBROSIS AND ACTIVITY; Future Follow up in office 1 year Itzel Kidd APRN.CNP July 12, 2024 9:13 AM documented in this encounter [facility] 06-25-2024 Note HNO ID: [id number] Author: REYNA BYRD RN Service: ? Author Type: Registered Nurse Type: Progress Notes Filed: 06/25/2024 11:22 Note Text: Per Dr. Alegre Juan was provided with Powerstep Originals size 10-10.5 Mens and Night Splint size Large, and instructed/educated in its application, wear, and care. All questions were answered, and patient was able to demonstrate competence with the necessary skills to utilize the above equipment. Patient signed DJO Patient agreement. [employer] to bill patient's insurance for night splint. Reyna Byrd RN [facility] 06-25-2024 History of Presen t illness Narrative Per Dr. Alegre, Juan was provided with Powerstep Originals size 10-10.5 Mens and Night Splint size Large, and instructed/educated in its application, wear, and care. All questions were answered, and patient was able to demonstrate competence with the necessary skills to utilize the above equipment. Patient signed DJO Patient agreement. [employer] to bill patient's insurance for night splint. Reyna Byrd RN Images from the original note were not included. Consultation requested by Dr. Fernandez for an opinion regarding left heel pain. My final recommendations will be communicated back to the requesting physician by way of shared Medical record or letter to requesting physician via [place] mail. Initial Podiatric Office Visit: Chief Complaint: This 28 year old male who presents with chief complaint:left heel pain HPI Patient presents to clinic for evaluation of left foot For the past month, he has been experiencing pain in the left heel. The pain is most severe following periods of rest (when he gets up and starts walking) As he starts walking, the pain will lessen Currently, managing the pain with ankle brace, taking ibuprofen, some stretching. Current treatment does provide some relief. PAIN EVALUATION 06/18/2024 1007 Pain Level: 6 Pain Location: Foot-Left Description: Aching Duration Amount of Time: 1 Duration Units: Minutes Frequency: Intermittent Intervention/Comfort measure: Medication Hemoglobin A1C (%) Date Value 08/23/2022 5.4 PCP: Quentin Mcleod MD PAST MEDICAL HISTORY Diagnosis Date Elevated liver function tests 04/10/2018 04/07/18: ALT 97 AST 44 ?fatty liver disease Obesity, Class III, BMI 40-49.9 (morbid obesity) (HCC) 04/07/2018 Current Outpatient Medications Medication Sig ibuprofen (MOTRIN) 200 mg tablet Take 1-2 tablets by mouth every 6 hours as needed for pain (Take with food.). cetirizine hcl(ZYRTEC 10 MG TAB) Take one(1) tablet daily. No current facility-administered medications for this visit. ALLERGIES Allergen Reactions Augmentin [Amoxicil* Dust Mites Zithromax [Azithrom* PAST SURGICAL HISTORY Procedure Laterality Date ADENOIDECTOMY PRIMARY <AGE 12 Adenoidectomy CIRCUMCISION TONSILLECTOMY PRIMARY/SECONDARY <AGE 11 Tonsillectomy FAMILY HISTORY Problem Relation Age of Onset Asthma Maternal Grandmother other (MVP [Other]) Mother None Father None Maternal Grandfather Heart Paternal Grandmother Heart Paternal Grandfather None Sister None Brother Social History Tobacco Use Smoking status: Never Smokeless tobacco: Never Vaping Use Vaping status: Never Used Substance Use Topics Alcohol use: Yes Alcohol/week: 1.0 - 2.0 standard drink of alcohol Types: 1 - 2 Cans of Beer (12oz) per week Comment: Occassional, on the weekends Drug use: No REVIEW OF SYSTEMS GENERAL: Negative for Malaise, significant weight loss, fever RESPIRATORY: Negative for cough, wheezing and shortness of breath CARDIOVASCULAR: Negative for chest pain, leg swelling and palpitations GI: Negative for abdominal discomfort, blood in stools or black stools and change in bowel habits : Negative for dysuria, frequency and incontinence MUSCULOSKELETAL: Negative for joint pain or swelling, back pain, and muscle pain. SKIN: Negative for lesions, rash, and itching. HEMATOLOGY/LYMPHOLOGY Negative for prolonged bleeding, bruising easily, and swollen nodes. ENDOCRINE: Negative for cold or heat intolerance, polyuria, polydipsia and goiter. NEURO: negative Physical Exam: Constitutional: Pt is a well developed 28 year old male who is alert, oriented and cooperative Eyes: Following during examination. No redness or drainage. Respiratory: RR normal and nonlabored. Even breathing. No evidence of distress or shortness of breath. Psychology: Patient is engaged during conversation. Normal affect and mood. Does not appear depressed or anxious during encounter. Vascular: Dorsalis pedis and posterior tibial pulses palpable as b/l Capillary Fill time < 5 seconds to digits 1-5 b/l Skin temperature warm to warm proximal to distal b/l Hair growth present to digits Neurological: intact light touch/epicritic sensation b/l intact protective sensation no significant neurological deficits Dermatological: Nails 1-5 b/l appear normal. Webspaces clean and dry 1-4 b/l. Skin appears well hydrated and supple. good color, texture, turgor. No open lesions present. No callosities present. Musculoskeletal/Orthopaedic: Patient has pain to palpation of left plantar medial calcaneal tubercle Foot type is slightly pronated structurally AJ ROM is full with knee extended and flexed 1st MPJ is full when loaded and no pain or crepitus are noted with ROM. MTJ, STJ are full and free of pain and crepitus. +5/5 muscle strength dorsiflexion, plantarflexion, inversion, eversion b/l Radiographs: 3 views left foot reviewed June 25, 2024: I have personally reviewed and interpreted these XR myself: no acute fracture. Plantar and posterior heel spur ASSESSMENT: (M72.2) Plantar fasciitis PLAN: 1. Initial Office Visit - A thorough review of the patient's PMH and Podiatric physical exam was completed. 2. Patient advised to perform stretching excercises, icing, and to make appropriate shoe gear changes to include wearing athletic-type shoes with supportive insoles. No barefoot walking. Patient also given written instructions on how to correctly perform the stretching of the achilles tendon/calf stretches, and the heel spur/plantar fasciitis regimen. 3. Patient advised to seek wide, deep toe box, accomodative, comfortable, lace-up, athletic/walking type footwear that includes motion control characteristics for support and cushion that need to be worn at all times when weight-bearing. Shoes should be tested for torsional stability as well as proper bending at the toebox rather than at the midfoot. Good quality shoes such as, but not limited to, New Balance or Asics are examples of more proper foot gear. 4. Patient recommended to get powerstep insoles for proper support of the arch in order to alleviate the tension and stress on the plantar fascia associated with normal daily walking. Patient advised that these modalities used in conjunction with stretching and icing are able to alleviate most symptoms from this condition. 5. Night splint dispensed 6. Offered injection. Patient declined. If pain fails to improve, consider injection 7. Continue with nsaids as needed. Willy Alegre DPM Podiatry [address] [facility] [address] Dept: [phone] Dept AMB ROOMING INTAKE FLOWSHEET DATA Pain Pain Level: 6 Pain Location: Foot-Left Description: Aching Duration Amount of Time: 1 Duration Units: Minutes Frequency: Intermittent Intervention/Comfort measure: Medication Patient presents with: Left Foot - New, Pain, Numbness Amina Aguero LPN documented in this encounter [facility] 06-25-2024 Instructions Willy Alegre - 06/25/2024 10:54 AM EST Images from the original note were not included. What is Plantar Fasciitis? Plantar fasciitis is the most common cause of heel pain. The pain is caused by inflammation of the plantar fascia. If you strain your plantar fascia, it becomes weak, swollen and irritated (inflamed). The resulting pain may be isolated in the heel or may appear at different points on the bottom of the foot, from time to time; it may occur in one foot or both. Some think that plantar fasciitis pain is caused by irritation of nerves from tissue swelling or inflammation, but it is debatable. Plantar fasciitis is common in middle-aged people; it also occurs in younger people who are on their feet a lot, such as athletes or soldiers. The plantar fascia is a strong band of connective tissue that extends from the base of the toes, along the bottom of the foot, to the bottom of the heel (calcaneous bone); it acts like a bowstring to maintain the arch of the foot. What are heel spurs? The inflammatory reaction of the heel bone may produce spike-like projections of new bone, called heel spurs. The spurs sometimes show on X-rays. They neither cause the initial pain nor do they cause the initial problem. However, later, having to walk on spurs may cause sharp pain. What causes plantar fasciitis? Plantar fasciitis is caused by straining the ligament that supports your arch. Repeated strain can cause tiny tears in the ligament. These lead to pain and swelling. During walking, the plantar fascia experiences tension up to twice the body weight with each step. While this is normal, those who spend much time on their feet, such as nurses, gold assayer/waiters, and mail carriers, often experience plantar fasciitis. Athletes involved in tennis or other racquet sports, race walking, jogging or running also show a higher incidence of plantar fasciitis than do those participating in other activities. Thus, it's clear that plantar fasciitis is predominantly an overuse injury. In fact, any activity that results in prolonged tension and stress on the plantar fascia may cause plantar fasciitis. It is possible that changes in footwear may play a role in causing plantar fasciitis, no matter what activity is occurring. Those who are overweight are prone to plantar fasciitis. This is true even for sedentary people who get little physical activity. Abnormalities of the foot and ankle joints may predispose some individuals to development of plantar fasciitis (specifically, over pronation of the subtalar joint). Contributing Factors * Flat feet * Toe running, hill running * Sudden weight increase * High-arched, rigid feet * Soft terrain, e.g. running on sand * Obesity * Pronated feet (rolled inward) * Sudden increase in activity * Family tendency * Poor shoe support * Worn out or poorly fitted shoes * Increasing age * Walking, standing or running for long periods of time, especially on hard surfaces. How is the Injury Treated? Rest Your Feet: Limit, or if possible, stop activities that are causing your heel pain. Try to avoid running or walking on hard surfaces, such as concrete. Use pain as your guide. If your foot is too painful, rest it. Ice: Ice the sore area for 30 to 60 minutes, several times a day, to reduce inflammation and relieve pain. Apply a plastic bag of crushed ice (or a bag of frozen peas) over a towel. Ice the sore area for 15 minutes after activity/exercise. Application of heat is not generally recommended, as heat expands the bone and connective tissue, perhaps exerting greater pressure on nerves and thereby increasing pain. If heat is used, follow it with ice. Medication: If your condition developed recently, anti-inflammatory/analgesic medication, combined with heel pads (see below) may be all that is necessary to relieve pain and to reduce inflammation. If no pain relief has occurred after 2-3 weeks, however, your doctor may inject either cortisone or local anesthetic directly into the tender area. Exercises: Do simple exercises, such as calf stretches and towel stretches (see below) several times a day, especially when you first get up in the morning. These can help your ligament become more flexible and strengthen the muscles that support your arch. Shoes: Poorly fitting shoes can cause plantar fasciitis. The best type of shoe to wear is a good walking or running shoe with good shock absorption and excellent arch support. You should choose the one that fits the best. [place] with your athletic shoes to find a pair that is comfortable and causes fewer symptoms. Put your shoes on as soon as you get out of bed; going barefoot or wearing slippers may make your pain worse. Good brands include (but are not limited to): New Balance, Asics, Saucony, SAS and Merrel s. Taping: Your doctor may tape your foot to maintain the arch. This takes some of the tension off the plantar fascia. Weight Loss: If your weight is putting extra stress on your feet, your doctor may encourage you to try a weight-loss program. Orthotics: An orthotic insole is a molded piece of rubber, plastic, or other material that you insert into your shoe. It corrects the alignment of your foot and cushions your foot from excessive pounding. These may be prescription or non-prescription. Prescription orthotics are custom-fitted and may fit better and control pain better, but are very expensive. Night Splints: A night splint holds the foot with the toes pointed up and the ankle at a 90-degree angle. This position applies a constant, gentle stretch to the plantar fascia. Corticosteroid Shots: Steroids may be injected into the tender area to reduce inflammation. REHAB Exercises to stretch the plantar fascia, the calf muscles, and the Achilles tendon. Tightness of the muscles of the calves may contribute to plantar fasciitis, so stretching the calf muscles is important to rehabilitation, as is stretching of the plantar fascia itself. Plantar fascial stretches Assisted Dorsiflexion/Plantar Fascia Stretch: Sit on the floor or ground, barefoot, with both legs outstretched. Use a towel or elastic band and wrap it around the ball (and not the toes) of the affected foot. Use the towel or elastic band to provide resistance to upward movement of the forefoot. Pull foot upward (toward your body) with the help of the elastic band or towel, and then return to the starting position. Ten repetitions are recommended. Perform the sequence at least three times a day. Alternate Plantar Fascia Stretch: Sit upright in a chair, barefoot. Place the ankle of the affected foot on your opposite knee. Using the same hand as the affected foot, reach across and grab the toes. Flex the ankle toward and pull the toes toward the mercado. To test the stretch, place the thumb of your hand on the bottom of the foot. You should be able to feel the cord-like plantar fascia, running the length of the foot. Hold the stretch for a count of 10, then relax. Repeat 10 times. Do the sequence at least three times a day. Achilles/Calf Stretches Strengthening the muscles of the calves may contribute to successful rehabilitation of plantar fasciitis, as well as prevent reoccurrence. The exercises below will help strengthen the calf muscles. Calf and Achilles Tendon Stretch (Gastrocnemius Stretch): Face a wall, standing an arm's length away. Place one foot back. Place both hands on the wall. Bend the elbows and knee of your forward leg, keeping the heel of the backward foot on the floor and keeping your body straight (aligned), until your forehead nearly touches the wall, or until significant stretch is felt in the muscles of the calf of the backward leg. Hold this position for 10 to 15 seconds. Extend elbows (straighten your arms and stand upright again) and maintain this position for 10 seconds. Repeat this cycle 15 to 20 times. Switch legs and repeat the exercise. Powerstep Original Full length. Can purchase at [facility] [employer] and boots,shoes and more here in [place], [employer] in [place] or [place]. Also can find in [place] in [facility]. Powersteps can also be purchased online, starting around $45.00 If you have a metatarsal or dancer pad for your feet apply the pad directly to the insole so you can interchange between your shoes. Find a shoe with a removable insole and take this out and replace with your powerstep insole. Always bring powersteps with you when shopping for shoes so that you can make sure that everything fits well together documented in this encounter [facility] 06-25-2024 Note HNO ID: [id number] Author: WILLY ALEGRE, ? Service: ? Author Type: Physician Type: Progress Notes Filed: 06/25/2024 11:12 Note Text: Consultation requested by Dr. Fernandez for an opinion regarding left heel pain. My final recommendations will be communicated back to the requesting physician by way of shared Medical record or letter to requesting physician via [place] mail. Initial Podiatric Office Visit: Chief Complaint: This 28 year old male who presents with chief complaint:left heel pain HPI Patient presents to clinic for evaluation of left foot For the past month, he has been experiencing pain in the left heel. The pain is most severe following periods of rest (when he gets up and starts walking) As he starts walking, the pain will lessen Currently, managing the pain with ankle brace, taking ibuprofen, some stretching. Current treatment does provide some relief. PAIN EVALUATION 06/18/2024 1007 Pain Level: 6 Pain Location: Foot-Left Description: Aching Duration Amount of Time: 1 Duration Units: Minutes Frequency: Intermittent Intervention/Comfort measure: Medication Hemoglobin A1C (%) Date Value 08/23/2022 5.4 PCP: Quentin Mcleod MD PAST MEDICAL HISTORY Diagnosis Date Elevated liver function tests 04/10/2018 04/07/18: ALT 97 AST 44 ?fatty liver disease Obesity, Class III, BMI 40-49.9 (morbid obesity) (HCC) 04/07/2018 Current Outpatient Medications Medication Sig ibuprofen (MOTRIN) 200 mg tablet Take 1-2 tablets by mouth every 6 hours as needed for pain (Take with food.). cetirizine hcl(ZYRTEC 10 MG TAB) Take one(1) tablet daily. No current facility-administered medications for this visit. ALLERGIES Allergen Reactions Augmentin [Amoxicil* Dust Mites Zithromax [Azithrom* PAST SURGICAL HISTORY Procedure Laterality Date ADENOIDECTOMY PRIMARY Adenoidectomy CIRCUMCISION TONSILLECTOMY PRIMARY/SECONDARY Tonsillectomy FAMILY HISTORY Problem Relation Age of Onset Asthma Maternal Grandmother other (MVP [Other]) Mother None Father None Maternal Grandfather Heart Paternal Grandmother Heart Paternal Grandfather None Sister None Brother Social History Tobacco Use Smoking status: Never Smokeless tobacco: Never Vaping Use Vaping status: Never Used Substance Use Topics Alcohol use: Yes Alcohol/week: 1.0 - 2.0 standard drink of alcohol Types: 1 - 2 Cans of Beer (12oz) per week Comment: Occassional, on the weekends Drug use: No REVIEW OF SYSTEMS GENERAL: Negative for Malaise, significant weight loss, fever RESPIRATORY: Negative for cough, wheezing and shortness of breath CARDIOVASCULAR: Negative for chest pain, leg swelling and palpitations GI: Negative for abdominal discomfort, blood in stools or black stools and change in bowel habits : Negative for dysuria, frequency and incontinence MUSCULOSKELETAL: Negative for joint pain or swelling, back pain, and muscle pain. SKIN: Negative for lesions, rash, and itching. HEMATOLOGY/LYMPHOLOGY Negative for prolonged bleeding, bruising easily, and swollen nodes. ENDOCRINE: Negative for cold or heat intolerance, polyuria, polydipsia and goiter. NEURO: negative Physical Exam: Constitutional: Pt is a well developed 28 year old male who is alert, oriented and cooperative Eyes: Following during examination. No redness or drainage. Respiratory: RR normal and nonlabored. Even breathing. No evidence of distress or shortness of breath. Psychology: Patient is engaged during conversation. Normal affect and mood. Does not appear depressed or anxious during encounter. Vascular: Dorsalis pedis and posterior tibial pulses palpable as b/l Capillary Fill time < 5 seconds to digits 1-5 b/l Skin temperature warm to warm proximal to distal b/l Hair growth present to digits Neurological: intact light touch/epicritic sensation b/l intact protective sensation no significant neurological deficits Dermatological: Nails 1-5 b/l appear normal. Webspaces clean and dry 1-4 b/l. Skin appears well hydrated and supple. good color, texture, turgor. No open lesions present. No callosities present. Musculoskeletal/Orthopaedic: Patient has pain to palpation of left plantar medial calcaneal tubercle Foot type is slightly pronated structurally AJ ROM is full with knee extended and flexed 1st MPJ is full when loaded and no pain or crepitus are noted with ROM. MTJ, STJ are full and free of pain and crepitus. +5/5 muscle strength dorsiflexion, plantarflexion, inversion, eversion b/l Radiographs: 3 views left foot reviewed June 25, 2024: I have personally reviewed and interpreted these XR myself: no acute fracture. Plantar and posterior heel spur ASSESSMENT: (M72.2) Plantar fasciitis PLAN: 1. Initial Office Visit - A thorough review of the patient's PMH and Podiatric physical exam was completed. 2. Patient advised to perform stretching excercises, icing, and (more content not included)... [facility] 06-25-2024 Note HNO ID: [id number] Author: AMINA AGUERO LPN Service: ? Author Type: LICENSED NURSE Type: Progress Notes Filed: 06/25/2024 11:12 Note Text: AMB ROOMING INTAKE FLOWSHEET DATA Pain Pain Level: 6 Pain Location: Foot-Left Description: Aching Duration Amount of Time: 1 Duration Units: Minutes Frequency: Intermittent Intervention/Comfort measure: Medication Patient presents with: Left Foot - New, Pain, Numbness Amina Aguero LPN [facility] 06-03-2024 Telephone encounter Note Patient returned call and given provider's message below and patient verbalized understanding. Sandra Menendez RN [facility] 06-03-2024 Miscellaneous Notes Patient returned call and given provider's message below and patient verbalized understanding. Sandra Menendez RN Left message for pt to contact office. Jose Schwartz LPN Let patient know that xray confirm smal heel spur. Continue with seeing podiatry. documented in this encounter [facility] 06-03-2024 Telephone encounter Note Left message for pt to contact office. Jose Schwartz LPN [facility] 06-03-2024 Telephone encounter Note Let patient know that xray confirm smal heel spur. Continue with seeing podiatry. [facility] Work Phone: 05-28-2024 History of Presen t illness Narrative Radiology Service Progress Note PATIENT NAME: Juan Chapa DATE OF SERVICE: May 28, 2024 TIME: 10:54 AM PATIENT IDENTITY VERIFICATION COMPLETED USING TWO (2) IDENTIFIERS: Name and Date of confirmed by patient verbally. FALL SCREENING: Has the patient had 2 falls in the last year or 1 fall with injury or currently using an Ambulatory Assistive Device (Walker, Cane, Wheelchair, Crutches, etc.)? No PATIENT GENDER DATA: Male PATIENT RELEVANT IMPLANT DATA REVIEWED: Not Applicable PATIENT PRESENTS WITH AN IMPLANTABLE OR ATTACHED RETURNS PROCESSOR: No RADIOLOGY DEPARTMENT: General X-ray: Exam(s) Completed: Lower Extremity X-Ray(s): Foot, Left and Wt. Bearing PERIPHERAL IV DATA: Not applicable SIGNED BY: KASEY Wood) May 28, 2024 10:54 AM documented in this encounter [facility] 05-28-2024 Note HNO ID: [id number] Author: ARAM POSADA RT(R) Service: Radiology Author Type: Technologist Type: Progress Notes Filed: 05/28/2024 11:05 Note Text: Radiology Service Progress Note PATIENT NAME: Juan Chapa DATE OF SERVICE: May 28, 2024 TIME: 10:54 AM PATIENT IDENTITY VERIFICATION COMPLETED USING TWO (2) IDENTIFIERS: Name and Date of confirmed by patient verbally. FALL SCREENING: Has the patient had 2 falls in the last year or 1 fall with injury or currently using an Ambulatory Assistive Device (Walker, Cane, Wheelchair, Crutches, etc.)? No PATIENT GENDER DATA: Male PATIENT RELEVANT IMPLANT DATA REVIEWED: Not Applicable PATIENT PRESENTS WITH AN IMPLANTABLE OR ATTACHED RETURNS PROCESSOR: No RADIOLOGY DEPARTMENT: General X-ray: Exam(s) Completed: Lower Extremity X-Ray(s): Foot, Left and Wt. Bearing PERIPHERAL IV DATA: Not applicable SIGNED BY: Aram Posada RT(R) May 28, 2024 10:54 AM [facility] 05-28-2024 Instructions Hallie Fernandez APRN.[facility]ANDER - 05/28/2024 10:09 AM EST Get the xray. Schedule w/ podiatry. Continue rolling foot, doing stretches, and icing. documented in this encounter [facility] 05-28-2024 Note HNO ID: [id number] Author: HALLIE FERNANDEZ APRN.[facility]ER Service: ? Author Type: Nurse Practitioner Type: Progress Notes Filed: 05/29/2024 22:25 Note Text: This is a 28 year old male who presents today with: Patient presents with: Recheck: Follow up- L foot pain, continuing HISTORY OF PRESENT ILLNESS: Juan Chapa is a 28 year old male. Patient presents with: Recheck: Follow up- L foot pain, continuing Pt presents today with complaint of ongoing left foot pain. He was seen on 05/08/24. Dx w/ plantar fasciitis. He did a course of anti-inflammatories and ice. He also did the rolling. He also started wearing a splint. Continues with pain in the left foot, although a little better today. PAST MEDICAL HISTORY: PAST MEDICAL HISTORY Diagnosis Date Elevated liver function tests 04/10/2018 04/07/18: ALT 97 AST 44 ?fatty liver disease Obesity, Class III, BMI 40-49.9 (morbid obesity) (HCC) 04/07/2018 PAST SURGICAL HISTORY Procedure Laterality Date ADENOIDECTOMY PRIMARY Adenoidectomy CIRCUMCISION TONSILLECTOMY PRIMARY/SECONDARY Tonsillectomy ALLERGIES Augmentin [Amoxicillin-Pot Clavulanate], Dust Mites, and Zithromax [Azithromycin] MEDICATIONS Current Outpatient Medications Medication Sig ibuprofen (MOTRIN) 200 mg tablet Take 1-2 tablets by mouth every 6 hours as needed for pain (Take with food.). cetirizine hcl(ZYRTEC 10 MG TAB) Take one(1) tablet daily. No current facility-administered medications for this visit. FAMILY HISTORY Problem Relation Age of Onset Asthma Maternal Grandmother other (MVP [Other]) Mother None Father None Maternal Grandfather Heart Paternal Grandmother Heart Paternal Grandfather None Sister None Brother Social History Tobacco Use Smoking status: Never Smokeless tobacco: Never Vaping Use Vaping status: Never Used Substance Use Topics Alcohol use: Yes Alcohol/week: 1.0 - 2.0 standard drink of alcohol Types: 1 - 2 Cans of Beer (12oz) per week Comment: Occassional, on the weekends Drug use: No EXAM: BP 138/96 Pulse 83 Resp 16 SpO2 95% PHYSICAL EXAM: General Appearance: Well appearing, alert, in no acute distress, well-hydrated, well nourished.. Skin: Skin color, texture, turgor normal, no suspicious rashes or lesions. Head: Normocephalic, no masses, lesions, tenderness or abnormalities. Eyes: Anicteric sclera. Extraocular movements are intact. . Extremities: No deformities, edema, skin discoloration, clubbing or cyanosis. Good capillary refill. Pain left foot just anterior to the heel. Neurologic: Gait normal. ASSESSMENT/PLAN: 1. Plantar fasciitis - ICD9: 728.71, ICD10: M72.2 Continue nsaids. Continue ice. Continue rolling and exercises. Will get xray to r/o spur. Consult to podiatry. - XR FOOT GENERAL 3V AP/LAT/OBL LEFT - CONSULT TO PODIATRY Discussed treatment plan and patient voices understanding. Patient's questions answered appropriately. Medications and potential side effects were discussed and patient voices understanding. Return to the office as scheduled or as needed for worsening/no improvement. Hallie Fernandez APRN.[facility] 05-28-2024 History of Presen t illness Narrative This is a 28 year old male who presents today with: Patient presents with: Recheck: Follow up- L foot pain, continuing HISTORY OF PRESENT ILLNESS: Juan Chapa is a 28 year old male. Patient presents with: Recheck: Follow up- L foot pain, continuing Pt presents today with complaint of ongoing left foot pain. He was seen on 05/08/24. Dx w/ plantar fasciitis. He did a course of anti-inflammatories and ice. He also did the rolling. He also started wearing a splint. Continues with pain in the left foot, although a little better today. PAST MEDICAL HISTORY: PAST MEDICAL HISTORY Diagnosis Date Elevated liver function tests 04/10/2018 04/07/18: ALT 97 AST 44 ?fatty liver disease Obesity, Class III, BMI 40-49.9 (morbid obesity) (HCC) 04/07/2018 PAST SURGICAL HISTORY Procedure Laterality Date ADENOIDECTOMY PRIMARY <AGE 11 Adenoidectomy CIRCUMCISION TONSILLECTOMY PRIMARY/SECONDARY <AGE 11 Tonsillectomy ALLERGIES Augmentin [Amoxicillin-Pot Clavulanate], Dust Mites, and Zithromax [Azithromycin] MEDICATIONS Current Outpatient Medications Medication Sig ibuprofen (MOTRIN) 200 mg tablet Take 1-2 tablets by mouth every 6 hours as needed for pain (Take with food.). cetirizine hcl(ZYRTEC 10 MG TAB) Take one(1) tablet daily. No current facility-administered medications for this visit. FAMILY HISTORY Problem Relation Age of Onset Asthma Maternal Grandmother other (MVP [Other]) Mother None Father None Maternal Grandfather Heart Paternal Grandmother Heart Paternal Grandfather None Sister None Brother Social History Tobacco Use Smoking status: Never Smokeless tobacco: Never Vaping Use Vaping status: Never Used Substance Use Topics Alcohol use: Yes Alcohol/week: 1.0 - 2.0 standard drink of alcohol Types: 1 - 2 Cans of Beer (12oz) per week Comment: Occassional, on the weekends Drug use: No EXAM: BP 138/96 Pulse 83 Resp 16 SpO2 95% PHYSICAL EXAM: General Appearance: Well appearing, alert, in no acute distress, well-hydrated, well nourished.. Skin: Skin color, texture, turgor normal, no suspicious rashes or lesions. Head: Normocephalic, no masses, lesions, tenderness or abnormalities. Eyes: Anicteric sclera. Extraocular movements are intact. . Extremities: No deformities, edema, skin discoloration, clubbing or cyanosis. Good capillary refill. Pain left foot just anterior to the heel. Neurologic: Gait normal. ASSESSMENT/PLAN: 1. Plantar fasciitis - ICD9: 728.71, ICD10: M72.2 Continue nsaids. Continue ice. Continue rolling and exercises. Will get xray to r/o spur. Consult to podiatry. - XR FOOT GENERAL 3V AP/LAT/OBL LEFT - CONSULT TO PODIATRY Discussed treatment plan and patient voices understanding. Patient's questions answered appropriately. Medications and potential side effects were discussed and patient voices understanding. Return to the office as scheduled or as needed for worsening/no improvement. Hallie Fernandez APRN.CNP documented in this encounter [facility] 05-08-2024 Instructions Hallie Fernandez APRN.CNP - 05/08/2024 9:19 AM EDT Roll foot. Antiinflammatories. Foot stretches. If no improvement, consider getting the plantar fasciitis night splint. Let me know if no better/worsening. documented in this encounter [facility] 05-08-2024 Note HNO ID: [id number] Author: HALLIE FERNANDEZ APRN.CNP Service: ? Author Type: Nurse Practitioner Type: Progress Notes Filed: 05/08/2024 15:37 Note Text: This is a 28 year old male who presents today with: Patient presents with: Acute Visit: L foot pain x couple days; no known injury HISTORY OF PRESENT ILLNESS: Juan Chapa is a 28 year old male. Patient presents with: Acute Visit: L foot pain x couple days; no known injury Pt presents today with complaint of left foot pain. Started a couple of days ago. Doesn't recall any injuries. Doesn't notice any swelling. Not taking for pain. When he is off the leg for awhile and then goes to walk on it, pain is worse. Being off of it helps. PAST MEDICAL HISTORY: PAST MEDICAL HISTORY Diagnosis Date Elevated liver function tests 04/10/2018 04/07/18: ALT 97 AST 44 ?fatty liver disease Obesity, Class III, BMI 40-49.9 (morbid obesity) (HCC) 04/07/2018 PAST SURGICAL HISTORY Procedure Laterality Date ADENOIDECTOMY PRIMARY Adenoidectomy CIRCUMCISION TONSILLECTOMY PRIMARY/SECONDARY Tonsillectomy ALLERGIES Augmentin [Amoxicillin-Pot Clavulanate], Dust Mites, and Zithromax [Azithromycin] MEDICATIONS Current Outpatient Medications Medication Sig cetirizine hcl(ZYRTEC 10 MG TAB) Take one(1) tablet daily. No current facility-administered medications for this visit. FAMILY HISTORY Problem Relation Age of Onset Asthma Maternal Grandmother other (MVP [Other]) Mother None Father None Maternal Grandfather Heart Paternal Grandmother Heart Paternal Grandfather None Sister None Brother Social History Tobacco Use Smoking status: Never Smokeless tobacco: Never Vaping Use Vaping status: Never Used Substance Use Topics Alcohol use: Yes Alcohol/week: 1.0 - 2.0 standard drink of alcohol Types: 1 - 2 Cans of Beer (12oz) per week Comment: Occassional, on the weekends Drug use: No EXAM: BP 142/92 Pulse 87 Resp 16 Wt (!) 157.4 kg (347 lb) SpO2 95% BMI 45.47 kg/m? PHYSICAL EXAM: General Appearance: Well appearing, alert, in no acute distress, well-hydrated, well nourished.. Skin: Skin color, texture, turgor normal, no suspicious rashes or lesions. Head: Normocephalic, no masses, lesions, tenderness or abnormalities. Eyes: Anicteric sclera. Pupils are equally round and reactive to light. Extraocular movements are intact. . Extremities: No deformities, edema, skin discoloration, clubbing or cyanosis. Good capillary refill. + tenderness at the posterior aspect of the plantar fascia. Neurologic: Gait normal. ASSESSMENT/PLAN: 1. Plantar fasciitis - ICD9: 728.71, ICD10: M72.2 Start routine course of nsaid. Ice, rolling on a frozen water bottle. Discussed rolling foot on foot roller/ball. Plantar fasciitis exercises provided. Also discussed nighttime splint. Notify provider if no better or worse, may need to consider referral to podiatry. Discussed treatment plan and patient voices understanding. Patient's questions answered appropriately. Medications and potential side effects were discussed and patient voices understanding. Return to the office as scheduled or as needed for worsening/no improvement. Hallie Fernandez APRN.[facility] 05-08-2024 History of Presen t illness Narrative This is a 28 year old male who presents today with: Patient presents with: Acute Visit: L foot pain x couple days; no known injury HISTORY OF PRESENT ILLNESS: Juan Chapa is a 28 year old male. Patient presents with: Acute Visit: L foot pain x couple days; no known injury Pt presents today with complaint of left foot pain. Started a couple of days ago. Doesn't recall any injuries. Doesn't notice any swelling. Not taking for pain. When he is off the leg for awhile and then goes to walk on it, pain is worse. Being off of it helps. PAST MEDICAL HISTORY: PAST MEDICAL HISTORY Diagnosis Date Elevated liver function tests 04/10/2018 04/07/18: ALT 97 AST 44 ?fatty liver disease Obesity, Class III, BMI 40-49.9 (morbid obesity) (HCC) 04/07/2018 PAST SURGICAL HISTORY Procedure Laterality Date ADENOIDECTOMY PRIMARY <AGE 11 Adenoidectomy CIRCUMCISION TONSILLECTOMY PRIMARY/SECONDARY <AGE 11 Tonsillectomy ALLERGIES Augmentin [Amoxicillin-Pot Clavulanate], Dust Mites, and Zithromax [Azithromycin] MEDICATIONS Current Outpatient Medications Medication Sig cetirizine hcl(ZYRTEC 10 MG TAB) Take one(1) tablet daily. No current facility-administered medications for this visit. FAMILY HISTORY Problem Relation Age of Onset Asthma Maternal Grandmother other (MVP [Other]) Mother None Father None Maternal Grandfather Heart Paternal Grandmother Heart Paternal Grandfather None Sister None Brother Social History Tobacco Use Smoking status: Never Smokeless tobacco: Never Vaping Use Vaping status: Never Used Substance Use Topics Alcohol use: Yes Alcohol/week: 1.0 - 2.0 standard drink of alcohol Types: 1 - 2 Cans of Beer (12oz) per week Comment: Occassional, on the weekends Drug use: No EXAM: BP 142/92 Pulse 87 Resp 16 Wt (!) 157.4 kg (347 lb) SpO2 95% BMI 45.47 kg/m PHYSICAL EXAM: General Appearance: Well appearing, alert, in no acute distress, well-hydrated, well nourished.. Skin: Skin color, texture, turgor normal, no suspicious rashes or lesions. Head: Normocephalic, no masses, lesions, tenderness or abnormalities. Eyes: Anicteric sclera. Pupils are equally round and reactive to light. Extraocular movements are intact. . Extremities: No deformities, edema, skin discoloration, clubbing or cyanosis. Good capillary refill. + tenderness at the posterior aspect of the plantar fascia. Neurologic: Gait normal. ASSESSMENT/PLAN: 1. Plantar fasciitis - ICD9: 728.71, ICD10: M72.2 Start routine course of nsaid. Ice, rolling on a frozen water bottle. Discussed rolling foot on foot roller/ball. Plantar fasciitis exercises provided. Also discussed nighttime splint. Notify provider if no better or worse, may need to consider referral to podiatry. Discussed treatment plan and patient voices understanding. Patient's questions answered appropriately. Medications and potential side effects were discussed and patient voices understanding. Return to the office as scheduled or as needed for worsening/no improvement. Hallie Fernandez APRN.CNP documented in this encounter [facility] 12-28-2023 Telephone encounter Note Noted. Will repeat liver fibrosis panel and HFP at 6 month visit. [facility] Work Phone: 12-28-2023 Miscellaneous Notes Noted. Will repeat liver fibrosis panel and HFP at 6 month visit. Spoke with pt. He stated he would like to follow up in 6 months and recheck labs. Gabriela Sanchez MA Juan, As I suspected, the liver fibrosis blood test and the fibroscan had 2 very different results. The fibrsocan showed advanced fibrosis, however, as I told you, this can be unreliable sometimes if you are overweight. I know we discussed the possibility of a liver biopsy, which is still an option OR we can simply have you follow up in 6 months and we will recheck your lab work. Please let me know how you want to proceed. Itzel Kidd APRN.[facility]ER Pt left a message to discuss results and plan. Tried calling pt back. [facility] Gabriela Sanchez MA documented in this encounter [facility] 12-28-2023 Telephone encounter Note Spoke with pt. He stated he would like to follow up in 6 months and recheck labs. Gabriela Sanchez MA [facility] 12-27-2023 Telephone encounter Note Juan, As I suspected, the liver fibrosis blood test and the fibroscan had 2 very different results. The fibrsocan showed advanced fibrosis, however, as I told you, this can be unreliable sometimes if you are overweight. I know we discussed the possibility of a liver biopsy, which is still an option OR we can simply have you follow up in 6 months and we will recheck your lab work. Please let me know how you want to proceed. Itzel Kidd APRN.[facility]ANDER Pt left a message to discuss results and plan. Tried calling pt back. [facility] Gabriela Sanchez MA [facility] 12-21-2023 History of Presen t illness Narrative Patient fasting for 3 hours:Yes Fibroscan was performed on December 21, 2023, by Kizzy Zarate LPN and results are interpreted by Reyna Thao CNP Diagnosis: Elevated liver enzymes [R74.8] Hepatic steatosis [K76.0] Please refer to get images report for individual readings Number of readings: 10 IQR %: 15 E (kpa): 23.2 CAP: 313 Exam was difficult to perform due to patient's BMI, heavy breathing pattern. Impression The reading was adequate. FS=23.2 kPA. The CAP score is 313 and corresponds to steatosis grade of S3. This reading corresponds: A kPa >20 indicates a high likelihood of stage 4 fibrosis/cirrhosis, consider further testing to confirm. Reyna Thao APRN.[facility] Fib[facility] Fibrosis Risk <7 kPA = F0-F2 97%, F3+F4 3%, F4 <1% <10 kPA = F0-F2 91%, F3+F4 9%, F4 1.3% 10-15 kPA = F0-F2 56%, F3+F4 43%, F4 14% >15 kPA = F0-F2 26%, F3+F4 74%, F4 46% Grade CAP value up to 237 dB/M corresponds to S0 (< 10 % Fat) CAP value between (238 - 258 dB/M) corresponds to S1 (>/= 11 % Fat) CAP value between (259 - 289 dB/M) corresponds to S2 (>/= 33 % Fat) CAP value > 290dB/M corresponds to S3 (>/= 67 % Fat) stage 0 ( S0:< 10 % steatosis) stage 1 (>/= S1: 11%-33% steatosis) stage 2 (>/= S2: 34%-66% steatosis) stage 3 (>/= S3: > 66% steatosis) Reference Richard Y, Choco Q, Richard T, Minnie J, Richard H, Jacob T. Controlled attenuation parameter for assessment of hepatic steatosis grades: a diagnostic meta-analysis. Int J Clin Exp Med. 2015 Apr 15;8(10):55351-83. PMID: 80636638; PMCID: [id number]. René Manning, Hui LEONARD, Brendan M, Syeda F, Aletha J, Kostas O, Brandi F, Clifford M, Kari G, Nathaly A, Phoebe E, Renee L, Bari G, Julisa A, Uri U, Adam S, Aida P, Duy V, de Serafin V, Ying M, Irma INGRAM. Refining the Baveno elastography criteria for the definition of compensated advanced chronic liver disease. J Hepatol. 2020;74(5):0617-9678. doi: 10.1016/j.jhep.2020.11.050. Epub 2019Jul 01. PMID: 04231775. documented in this encounter [facility] 12-12-2023 Instructions Itzel Kidd APRN.CNP - 12/12/2023 9:47 AM EDT What is fatty liver disease? Fatty liver disease (steatosis) is a common problem caused by the build-up of certain fats in the liver. The liver normally contains a small amount of fat. However, if more than 5 to 15% of the liver s weight consists of fat, fatty liver disease is present. What are the symptoms of fatty liver disease? People with fatty liver disease usually do not have any symptoms. If symptoms appear, they may include: A feeling of fullness in the middle or upper right side of the abdomen Abdominal pain Loss of appetite or weight loss Nausea Weakness Jaundice (yellowing of the skin and the whites of the eyes) Swelling of the abdomen and legs (edema) Mental confusion Extreme fatigue or tiredness What are the forms of fatty liver disease? There are two main forms of fatty liver disease. Non-alcoholic fatty liver--Fat build-up in the liver that is not linked to drinking alcohol. Alcoholic fatty liver--Fat build-up in the liver due to drinking large amounts of alcohol (two or more drinks per day.) What are the effects of fatty liver disease? In most cases, fatty liver disease does not cause any serious problems or prevent the liver from functioning normally. However, it may lead to liver damage under certain circumstances. Non-alcoholic steatohepatitis (COTA) is the most severe condition resulting from non-alcoholic fatty liver disease. COTA is more likely to occur in people who are overweight or obese, or who have diabetes. Fatty liver affects up to 25% of people in the [place] and is one of the country s main causes of cirrhosis of the liver. What are the risk factors for fatty liver disease? There are many risk factors for non-alcoholic fatty liver disease. A risk factor makes a person more likely to have a condition or disease. Some risk factors for fatty liver are: Being obese or overweight Having type 2 diabetes or insulin resistance Having metabolic syndrome--A combination of excess body weight, insulin resistance, high blood pressure, and high triglyceride levels. Some genetic metabolic conditions or prescription medications (amiodarone, diltiazem, steroids, and tamoxifen) also may increase the risk of non-alcoholic fatty liver disease. If you are taking one of these medications, your doctor might substitute another drug for it. How is fatty liver disease diagnosed? Blood tests may be done to check for elevated levels of certain liver enzymes. An ultrasound or computed tomography (CT) scan of the liver may be done to check for abnormalities and confirm the diagnosis of fatty liver disease. A liver biopsy (tissue sample) may be needed if your doctor suspects that you have severe liver disease. How is fatty liver disease treated? There is no single treatment for fatty liver disease. In most cases, no treatment is required. If it is needed, treatment will depend on the underlying cause. Your doctor may recommend that you go on a diet, since losing weight can reduce the amount of fat in the liver. Even losing 1 or 2 pounds per week might help. Your doctor or lead developer can give you advice on healthy weight loss techniques. Drugs that regulate blood sugar levels can be helpful in treating fatty liver in diabetic patients. Also, vitamin E has been shown to be effective in some cases and is currently being studied. How can fatty liver disease be prevented? Maintain a healthy weight. If you are overweight or obese, lose weight gradually. Eat a balanced diet. Avoid foods that are high in cholesterol. Vegetables, fruits, and low-fat foods may help lower cholesterol and triglyceride levels. Exercise regularly. Limit your alcohol consumption or do not drink. Take medications as prescribed. Your doctor may prescribe statins to lower triglyceride levels or anti-diabetic drugs if you are diabetic or insulin-resistant. documented in this encounter [facility] 12-12-2023 History of Presen t illness Narrative CHIEF COMPLAINT: Patient presents with: Elevated Liver Enzymes This consult was requested by Quentin Mcleod MD for an opinion regarding abnormal liver enzymes. My final recommendations will be communicated to the requesting health care provider by way of the shared medical record for internal providers or letter via the [email or web address] for external providers. HPI: Juan Chapa is a 28 year old male with HLD and obesity who presents for Elevated Liver Enzymes. RUQ US 08/29/22 - fatty liver Denies any jaundice, fatigue, abdominal pain, n/v, change in appetite, bowel changes, melena or hematochezia. No known family hx of liver disease. 1-2 beers per week. Hepatitis panel negative (acute). LFT's have fluctuated over the years between normal and ALT>AST. Record Review: [facility] / Outside records reviewed. Latest Ref Rng 11/01/2023 11/15/2023 WBC 3.70 - 11.00 k/uL 8.69 RBC 4.20 - 6.00 m/uL 4.90 Hemoglobin 13.0 - 17.0 g/dL 14.7 Hematocrit 39.0 - 51.0 % 45.1 MCV 80.0 - 100.0 fL 92.0 MCH 26.0 - 34.0 pg 30.0 MCHC 30.5 - 36.0 g/dL 32.6 RDW-CV 11.5 - 15.0 % 13.6 Platelet Count 150 - 400 k/uL 311 MPV 9.0 - 12.7 fL 10.5 Neut% % 57.3 Abs Neut (ANC) 1.45 - 7.50 k/uL 4.98 Lymph% % 28.2 Abs Lymph 1.00 - 4.00 k/uL 2.45 Hendry% % 7.1 Abs Hendry <0.87 k/uL 0.62 Eosin% % 5.8 Abs Eosin <0.46 k/uL 0.50 (H) Baso% % 1.3 Abs Baso <0.11 k/uL 0.11 (H) Immature Gran % % 0.3 IMMATURE GRANS (ABS) <0.10 k/uL 0.03 NRBC /100 WBC 0.0 Absolute nRBC <0.01 k/uL <0.01 DTYPE Auto Protein, Total 6.3 - 8.0 g/dL 7.4 7.2 Albumin 3.9 - 4.9 g/dL 4.2 4.2 Calcium 8.5 - 10.2 mg/dL 9.5 Bilirubin, Total 0.2 - 1.3 mg/dL 0.5 0.8 Alkaline Phosphatase 38 - 113 U/L 77 77 AST 14 - 40 U/L 57 (H) 58 (H) ALT 10 - 54 U/L 122 (H) 105 (H) Glucose 74 - 99 mg/dL 103 (H) BUN 9 - 24 mg/dL 16 Creatinine 0.73 - 1.22 mg/dL 0.84 Sodium 136 - 144 mmol/L 141 Potassium 3.7 - 5.1 mmol/L 4.3 Chloride 97 - 105 mmol/L 106 (H) CO2 22 - 30 mmol/L 24 Anion Gap 9 - 18 mmol/L 11 eGFR >=60 mL/min/1.73m 121 Cholesterol, Total <200 mg/dL 176 Triglyceride <150 mg/dL 142 HDL Cholesterol >39 mg/dL 47 Non HDL Cholesterol <130 mg/dL 129 Fasting Time hrs 10 VLDL Cholesterol <30 mg/dL 28 TC:HDL Ratio <5.10 3.74 LDL Cholesterol <100 mg/dL 101 (H) LDL:HDL Ratio <2.54 2.15 Bilirubin, Conjug <0.2 mg/dL <0.2 TSH 0.270 - 4.200 mIU/L 1.920 Legend: (H) High PAST MEDICAL HISTORY Diagnosis Date Elevated liver function tests 04/10/2018 04/07/18: ALT 97 AST 44 ?fatty liver disease Obesity, Class III, BMI 40-49.9 (morbid obesity) (HCC) 04/07/2018 PAST SURGICAL HISTORY Procedure Laterality Date ADENOIDECTOMY PRIMARY <AGE 11 Adenoidectomy CIRCUMCISION TONSILLECTOMY PRIMARY/SECONDARY <AGE 11 Tonsillectomy Allergies: ALLERGIES Allergen Reactions Augmentin [Amoxicil* Dust Mites Zithromax [Azithrom* Medications: cetirizine hcl(ZYRTEC 10 MG TAB) Take one(1) tablet daily. FAMILY HISTORY Problem Relation Age of Onset Asthma Maternal Grandmother other (MVP [Other]) Mother None Father None Maternal Grandfather Heart Paternal Grandmother Heart Paternal Grandfather None Sister None Brother Employer And Job Title: None on file Years Of Education Completed: Not specified Marital Status: Single Social History Tobacco Use Smoking status: Never Smokeless tobacco: Never Vaping Use Vaping Use: Never used Substance Use Topics Alcohol use: Yes Alcohol/week: 1.0 - 2.0 standard drink of alcohol Types: 1 - 2 Cans of Beer (12oz) per week Comment: Occassional, on the weekends Drug use: No Review of Systems: Review of Systems Constitutional: Positive for fatigue. Gastrointestinal: Heartburn All other systems reviewed and are negative. Are you taking any blood thinners? No Physical Examination: BP 132/82 Pulse 86 Ht 6' 1.25" (1.86m) Wt 345 lb (156.5kg) BMI 45.19 kg/(m^2). Physical Exam Constitutional: Appearance: Normal appearance. He is well-developed. He is morbidly obese. HENT: Head: Normocephalic and atraumatic. Mouth/Throat: Mouth: Mucous membranes are moist. Eyes: General: No scleral icterus. Cardiovascular: Rate and Rhythm: Normal rate and regular rhythm. Pulmonary: Breath sounds: Normal breath sounds. Abdominal: General: Abdomen is protuberant. Bowel sounds are normal. Palpations: Abdomen is soft. There is no hepatomegaly or splenomegaly. Tenderness: There is no abdominal tenderness. Skin: General: Skin is warm and dry. Coloration: Skin is not jaundiced. Neurological: Mental Status: He is alert and oriented to person, place, and time. Psychiatric: Mood and Affect: Mood normal. Behavior: Behavior normal. Behavior is cooperative. ASSESSMENT: (R74.8) Elevated liver enzymes (primary encounter diagnosis) (K76.0) Hepatic steatosis 1. Elevated liver enzymes - Suspect steatosis given ALT>AST, as he has RF. Will rule out AIH etc. - check fibroscan and serum liver fibrosis. Let him know that d/t his BMI, if there is a large discrepancy between fibroscan and serum test, we may need to do liver biopsy. - [id number]; Future - SMOOTH MUSCLE AB SCR; Future - CANDIDA BLOOD; Future - CERULOPLASMIN; Future - MITOCHONDRIAL M2 IGG SERUM; Future - IRON AND TIBC; Future - HEP REMOTE PANEL BL; Future - FERRITIN; Future - DDI VIBRATION CONTROLLED TRANSIENT ELASTOGRAPHY (VCTE) - LIVER FIBROSIS AND ACTIVITY; Future 2. Hepatic steatosis - discussed fatty liver and RF. Discussed losing weight (7-10% of BW), healthy diet, exercise. If F2/3, consider rezdiffra. - he was provided patient education about steatosis - [id number]; Future - SMOOTH MUSCLE AB SCR; Future - CANDIDA BLOOD; Future - CERULOPLASMIN; Future - MITOCHONDRIAL M2 IGG SERUM; Future - IRON AND TIBC; Future - HEP REMOTE PANEL BL; Future - FERRITIN; Future - DDI VIBRATION CONTROLLED TRANSIENT ELASTOGRAPHY (VCTE) - LIVER FIBROSIS AND ACTIVITY; Future Follow up in office TBD based on above. ItzelRosanne Kidd APRN.CNP December 12, 2023 10:01 AM documented in this encounter [facility] 11-16-2023 Telephone encounter Note Called and left message updated on results, patient identified self via cell phone voicemail. Also, sent results via patient MyChart. Ramon Mistry LPN November 16, 2023 3:44 PM [facility] 11-16-2023 Miscellaneous Notes Called and left message updated on results, patient identified self via cell phone voicemail. Also, sent results via patient MyChart. Ramon Mistry LPN November 16, 2023 3:44 PM Liver is still up. Avoid any etoh. Watch weight,. It is high enough please have him see hepatology documented in this encounter [facility] 11-16-2023 Telephone encounter Note Liver is still up. Avoid any etoh. Watch weight,. It is high enough please have him see hepatology [facility] 11-02-2023 Miscellaneous Notes Patient returned call and went over results, notes from Dr Mcleod with understanding. Left message for patient to call office back Kenya Costa MA His labs are stable. Liver enzymes are up. Avoid etoh. May be related to fatty liver or even sometimes viral infections Recheck labs in two weeks. If stays up will think about doing more work units. documented in this encounter [facility] 11-01-2023 History of Presen t illness Narrative Patient presents with: Physical HPI: Patient presents today for office visit for physical. Continues on zyrtec. Allergies are stable. Overall is doing well. No significant concern other than weight. Discussed options. Discussed calorie counting. Discussed bariatrics. Discussed options. MEDICATIONS: Current Outpatient Medications Medication Sig cetirizine hcl(ZYRTEC 10 MG TAB) Take one(1) tablet daily. No current facility-administered medications for this visit. ALLERGIES: ALLERGIES Allergen Reactions Augmentin [Amoxicil* Dust Mites Zithromax [Azithrom* PAST MEDICAL HISTORY Diagnosis Date Elevated liver function tests 04/10/2018 04/07/18: ALT 97 AST 44 ?fatty liver disease Obesity, Class III, BMI 40-49.9 (morbid obesity) (HCC) 04/07/2018 PAST SURGICAL HISTORY Procedure Laterality Date ADENOIDECTOMY PRIMARY <AGE 11 Adenoidectomy CIRCUMCISION TONSILLECTOMY PRIMARY/SECONDARY <AGE 11 Tonsillectomy FAMILY HISTORY Problem Relation Age of Onset Asthma Maternal Grandmother other (MVP [Other]) Mother None Father None Maternal Grandfather Heart Paternal Grandmother Heart Paternal Grandfather None Sister None Brother Social History Tobacco Use Smoking status: Never Smokeless tobacco: Never Substance Use Topics Alcohol use: Yes Alcohol/week: 1.0 - 2.0 standard drink of alcohol Types: 1 - 2 Cans of Beer (12oz) per week Comment: Occassional, on the weekends Drug use: No Reviewed current medications, allergies, past medical history, surgical history, family history and social history today. REVIEW OF SYSTEMS HEENT: Negative for frequent or significant headaches, No changes in hearing or vision, no nose bleeds or other nasal problems NECK: Negative for lumps, goiter, pain and significant neck swelling RESPIRATORY: Negative for cough, hemoptysis, wheezing, COPD, dyspnea or shortness of breath CARDIOVASCULAR: Negative for chest pain, leg swelling, hypertension, CHF or palpitations GI: No nausea, vomiting, or diarrhea : No history of dysuria, frequency or incontinence SKIN: Negative for lesions, rash, and itching PSYCH: Negative for sleep disturbance, mood disorder and recent psychosocial stressors All other reviewed and negative other than HPI. HEALTH MAINTENANCE: Reviewed health maintenance issues today and recommended the following in detail. HPV Vaccine(2 - Male 3-dose series) -thinks he may have gotten Covid-19 Vaccine(2022- season) - thinks he may have gotten. VITALS: BP 134/86 Pulse 104 Resp 16 Ht 186 cm (6' 1.23") Wt (!) 158.8 kg (350 lb) SpO2 95% BMI 45.89 kg/m Last 4 Encounter Wt Readings: Date: Wt: 11/01/2023 158.8 kg (350 lb) 11/28/2022 147.4 kg (325 lb) 09/20/2022 149.7 kg (330 lb) 04/07/2021 132.5 kg (292 lb) PHYSICAL EXAMINATION: General appearance: Well appearing, alert, in no acute distress, well-hydrated, well nourished. Skin: Skin color, texture, turgor normal, no suspicious rashes or lesions Head: Normocephalic, no masses, lesions, tenderness or abnormalities Eyes: Anicteric sclera. Pupils are equally round and reactive to light. Extraocular movements are intact. Ears: External ears normal, canals clear Nose/Sinuses: Nares normal, septum midline, mucosa normal, no drainage or sinus tenderness Oropharynx: Lips, mucosa, and tongue normal, teeth and gums normal, oropharynx normal Neck: Supple, no adenopathy; thyroid symmetric, normal size, no bruits Back: Normal exam Lungs: Lungs clear to auscultation. No wheezing, rhonchi, rales Heart: RRR without murmur, gallop, or rubs. No ectopy Abdomen: Normal abdominal exam, Abdomen soft, non-tender. Bowel sounds normal. No masses, organomegaly Extremities: No deformities, edema, skin discoloration, clubbing or cyanosis. Good capillary refill. Musculoskeletal: No joint swelling, deformity, or tenderness Peripheral pulses: Normal Neuro: Negative. ASSESSMENT/PLAN: 1. Well adult exam - ICD9: V70.0, ICD10: Z00.00 (primary diagnosis) - Counseled on healthy diet and regular exercise - COMPLETE BLOOD COUNT AND DIFFERENTIAL - COMPREHENSIVE METABOLIC PANEL - LIPID PANEL BASIC 2. Hyperlipidemia with target LDL less than 130 - ICD9: 272.4, ICD10: E78.5 - Controlled - Continue current medications - LIPID PANEL BASIC - THYROID STIMULATING HORMONE 3. Adult BMI 40.0-44.9 kg/sq m (HCC) - ICD9: V85.41, ICD10: Z68.41 Weight increasing -discussed weight loss. 4. Weight gain - ICD9: 783.1, ICD10: R63.5 - check lab.s - THYROID STIMULATING HORMONE Quentin Mcleod MD documented in this encounter [facility] 11-28-2022 Instructions M Jeremy Storey PA-C - 11/28/2022 11:24 AM EDT Facts About the Common Cold and Upper Respiratory Infection: Common symptoms include: sore throat, tender lymph nodes, low grade fever 99-101F for first few days, watery nasal drip that progresses to thick yellow-green mucus on blowing and on coughing, facial/sinus pressure, headache, chest tightness and tiredness/ fatigue. Usually they peak with the worst symptoms about 5-7 days and take another 5-7 days to clear, in other words 10-14 days. Occasionally there will be a persistent nagging cough or some residual minor nasal congestion up to several weeks. Viral infections are not susceptible to antibiotics. Due to the critical issues with global antibiotic resistance, we do not prescribe antibiotics if we suspect viral sources. Antibiotics can cause serious complications and therefore should be reserved for only serious infections. Get plenty of rest. Force fluids daily with water and juices. Nasal saline spray may help to keep nose open and moist: 2-3 squirts each side every few hours. This also help to rinse out virus and bacteria causing infection. Cool mist humidifier in room during sleep. May use OTC Tylenol or Ibuprofen as direct for discomfort. For sore throat, warm salt water gargles, Chlorseptic spray, lozenges or other OTC sore throat remedies may help. Decongestants such as plain Sudafed or with expectorant such as Mucinex D may help with nasal stuffiness or facial and sinus pressure. Generics are fine. These are over the counter but require an adult signature. Oxymetolazine nasal decongestants (Afrin, Dristan, Dale's) may also help (in place of oral decongestants) but should not be used longer than 48-72 hours due to potential rebound congestion. OTC antihistamines such Benadryl (make cause drowsiness) or Zyrtec/ Clariten/ Karli (non-drowsy) may help watery nasal drainage though they are generally not recommended because they dry mucus and make it sticky. The flow of mucus is important to help your body rid the virus. If cough keeps you awake at night, try OTC remedies first, such as Nyquil, Delsym, Dale's 44 or Mucinex DM. If this doesn't help you sleep, call the office for a prescription. Be careful if you are combining cough and cold medications that you aren't doubling the medicines. If you aren't sure: ask the pharmacist for help. Cough or sneeze into your sleeve to prevent spread of infected secretions. Wash your hands frequently. Try not to cough or sneeze on surfaces others might touch. If symptoms fail to improve in 5-7 days, fever > 100.5F, general worsening, or other concerning symptoms, return to [facility] or Quentin Mcleod MD. documented in this encounter [facility] 11-28-2022 History of Presen t illness Narrative 27 year old male with c/o nocturia. States usually doesn't drink Urinary frequency x 2 days with nocturia 5-6 times. F + DM2 Hemoglobin A1C (%) Date Value 08/23/2022 5.4 ) URI started 3 days with stuffy nose, sore throat. No fever or chills. Occasional "snot" expectorated. Taking cough drops, saline NS. Feeling better today. HISTORIES FAMILY HISTORY Problem Relation Age of Onset Asthma Maternal Grandmother other (MVP [Other]) Mother None Father None Maternal Grandfather Heart Paternal Grandmother Heart Paternal Grandfather None Sister None Brother PAST MEDICAL HISTORY Diagnosis Date Elevated liver function tests 04/10/2018 04/07/18: ALT 97 AST 44 ?fatty liver disease Obesity, Class III, BMI 40-49.9 (morbid obesity) (HCC) 04/07/2018 PAST SURGICAL HISTORY Procedure Laterality Date ADENOIDECTOMY PRIMARY <AGE 11 Adenoidectomy CIRCUMCISION TONSILLECTOMY PRIMARY/SECONDARY <AGE 11 Tonsillectomy Social History Tobacco Use Smoking status: Never Smokeless tobacco: Never Substance Use Topics Alcohol use: Yes Alcohol/week: 1.0 - 2.0 standard drink Types: 1 - 2 Cans of Beer (12oz) per week Comment: Occassional, on the weekends Drug use: No ACTIVE PROBLEM LIST Obesity, Class II, Bmi 35-39.9 Hyperlipidemia With Target Ldl Less Than 130 Current Outpatient Medications Medication Sig Dispense Refill cetirizine hcl(ZYRTEC 10 MG TAB) Take one(1) tablet daily. 0 No current facility-administered medications for this visit. DEPRESSION ASSESSMENT Never done EXAM: BP 124/82 Pulse 99 Temp 36.1 C (97 F) Resp 16 Wt (!) 147.4 kg (325 lb) SpO2 97% BMI 41.73 kg/m Pleasant obese adult male in no acute distress. Alert and oriented all spheres. Normal affect and cognition. Speech normal. No deficits to learning or comprehension. Skin warm, dry, pink to lips and nailbeds. Normal turgor. Respirations regular and unlabored. HEENT: NCAT. No scleral icterus or conjunctival injection. TM's clear. Nose and oropharynx free from injection or lesion. Oral membranes moist and pink. Mild gingivitis lower facial gums. No cervical lymph nodes. Thyroid non-tender, no masses, or enlargement. Carotids pulses 2+/4+ without bruits. No JVD with HOB at 30 degrees. Chest is normal shape. Lungs are clear to all gonzalez with good air exchange through out. HRRR without murmur or gallop. No lifts, heaves, or rubs. Extrem: no clubbing or cyanosis. Edema: none. Extremities are warm and pink with prompt capillary refill. Component Latest Ref Rng & Units 11/28/2022 GLUCOSE UA (POCT) Negative mg/dL Negative BILIRUBIN UA (POCT) Negative Negative KETONE UA (POCT) Negative mg/dL Negative SPECIFIC GRAVITY UA (POCT) 1.005 - 1.030 >=1.030 HEMOGLOBIN/BLOOD UA (POCT) Negative Negative PH UA (POCT) 4.5 - 8.0 5.0 PROTEIN UA (POCT) Negative mg/dL Negative UROBILINOGEN UA (POCT) Normal E.U./dL 0.2 NITRITE UA (POCT) Negative Negative LEUKOCYTES UA (POCT) Negative Negative COLOR UA (POCT) Yellow CLARITY UA (POCT) Clear ASSESSMENT/PLAN: 1. Urinary frequency - ICD9: 788.41, ICD10: R35.0 (primary diagnosis) acute - Patient education for prevention given - UA DIP, URINE (POC) - COMP METABOLIC PANEL 2. Nocturia - ICD9: 788.43, ICD10: R35.1 Doubt diabetes but he is worried. - COMP METABOLIC PANEL 3. FH: diabetes mellitus - ICD9: V18.0, ICD10: Z83.3 4. URI, acute - ICD9: 465.9, ICD10: J06.9 - Discussed viral etiology and rationale for treatment. - Symptomatic treatment with prn analgesia - Supportive care with fluids and rest See d/c instructions 5. Elevated liver enzymes - ICD9: 790.5, ICD10: R74.8 Mild: follow for trend , likely fatty liver. - COMP METABOLIC PANEL DICKSON Davey PA-C documented in this encounter [facility] 09-20-2022 Instructions Nigel Storey PA-C - 09/20/2022 10:53 AM EST Facts About the Common Cold and Upper Respiratory Infection: Common symptoms include: sore throat, tender lymph nodes, low grade fever 99-101F for first few days, watery nasal drip that progresses to thick yellow-green mucus on blowing and on coughing, facial/sinus pressure, headache, chest tightness and tiredness/ fatigue. Usually they peak with the worst symptoms about 5-7 days and take another 5-7 days to clear, in other words 10-14 days. Occasionally there will be a persistent nagging cough or some residual minor nasal congestion up to several weeks. Viral infections are not susceptible to antibiotics. Due to the critical issues with global antibiotic resistance, we do not prescribe antibiotics if we suspect viral sources. Antibiotics can cause serious complications and therefore should be reserved for only serious infections. Get plenty of rest. Force fluids daily with water and juices. Nasal saline spray may help to keep nose open and moist: 2-3 squirts each side every few hours. This also help to rinse out virus and bacteria causing infection. Cool mist humidifier in room during sleep. May use OTC Tylenol or Ibuprofen as direct for discomfort. For sore throat, warm salt water gargles, Chlorseptic spray, lozenges or other OTC sore throat remedies may help. Decongestants such as plain Sudafed or with expectorant such as Mucinex D may help with nasal stuffiness or facial and sinus pressure. Generics are fine. These are over the counter but require an adult signature. Oxymetolazine nasal decongestants (Afrin, Dristan, Dale's) may also help (in place of oral decongestants) but should not be used longer than 48-72 hours due to potential rebound congestion. OTC antihistamines such Benadryl (make cause drowsiness) or Zyrtec/ Clariten/ Karli (non-drowsy) may help watery nasal drainage though they are generally not recommended because they dry mucus and make it sticky. The flow of mucus is important to help your body rid the virus. If cough keeps you awake at night, try OTC remedies first, such as Nyquil, Delsym, Dale's 44 or Mucinex DM. If this doesn't help you sleep, call the office for a prescription. Be careful if you are combining cough and cold medications that you aren't doubling the medicines. If you aren't sure: ask the pharmacist for help. Cough or sneeze into your sleeve to prevent spread of infected secretions. Wash your hands frequently. Try not to cough or sneeze on surfaces others might touch. If symptoms fail to improve in 5-7 days, fever > 100.5F, general worsening, or other concerning symptoms, return to [facility] or Quentin Mcleod MD. documented in this encounter [facility] 09-20-2022 History of Presen t illness Narrative 26 year old male with c/o here for follow up Still having cough, a little white phlegm. Intermittent, not too bothersome No headache, occasional sinus congestion which he was using Mucinex for No chest discomfort. Feeling better, feels over the hump. No hx asthma. Thinks he's had pneumonia when he was young. 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 08/15/2022 visit Criss Fernandez [employer] for URI: stuffy nose, ST. Negative Covid, Flu Component Latest Ref Rng & Units 06/04/2018 09/28/2020 09/06/2022 Albumin 3.9 - 4.9 g/dL 4.6 4.3 Bilirubin, Total 0.2 - 1.3 mg/dL 0.6 0.5 Bilirubin, Conjug <0.2 mg/dL <0.2 <0.2 Alkaline Phosphatase 38 - 113 U/L 64 81 AST 14 - 40 U/L 44 (H) 36 ALT 10 - 54 U/L 88 (H) 65 (H) Protein, Total 6.3 - 8.0 g/dL 7.8 7.7 Hep C Antibody IA Negative Negative Negative Hep A Ab, IgM Negative Negative Hep B Core Ab, IgM Negative Negative Hep B Surface Ag Negative Negative Component Latest Ref Rng & Units 09/28/2020 08/23/2022 WBC 3.70 - 11.00 k/uL 12.87 (H) RBC 4.20 - 6.00 m/uL 4.97 Hemoglobin 13.0 - 17.0 g/dL 15.3 Hematocrit 39.0 - 51.0 % 45.8 MCV 80.0 - 100.0 fL 92.2 MCH 26.0 - 34.0 pg 30.8 MCHC 30.5 - 36.0 g/dL 33.4 RDW-CV 11.5 - 15.0 % 12.9 Platelet Count 150 - 400 k/uL 276 MPV 9.0 - 12.7 fL 11.2 Neut% % 70.8 Abs Neut (ANC) 1.45 - 7.50 k/uL 9.12 (H) Lymph% % 16.9 Abs Lymph 1.00 - 4.00 k/uL 2.17 Hendry% % 8.5 Abs Hendry <0.87 k/uL 1.09 (H) Eosin% % 2.9 Abs Eosin <0.46 k/uL 0.37 Baso% % 0.5 Abs Baso <0.11 k/uL 0.07 Immature Gran % % 0.4 IMMATURE GRANS (ABS) <0.10 k/uL 0.05 NRBC /100 WBC 0.0 Absolute nRBC <0.01 k/uL <0.01 DTYPE Auto Protein, Total 6.3 - 8.0 g/dL 8.0 7.4 Albumin 3.9 - 4.9 g/dL 4.8 4.4 Calcium 8.5 - 10.2 mg/dL 9.8 9.6 Bilirubin, Total 0.2 - 1.3 mg/dL 0.6 0.5 Alkaline Phosphatase 38 - 113 U/L 69 77 AST 14 - 40 U/L 20 40 Glucose 74 - 99 mg/dL 95 106 (H) BUN 9 - 24 mg/dL 23 14 Creatinine 0.73 - 1.22 mg/dL 0.89 0.89 Sodium 136 - 144 mmol/L 140 140 Potassium 3.7 - 5.1 mmol/L 4.7 4.2 Chloride 97 - 105 mmol/L 103 103 CO2 22 - 30 mmol/L 26 27 Anion Gap 9 - 18 mmol/L 11 10 ALT 10 - 54 U/L 27 79 (H) eGFR- >60 eGFR-All Other Races . >60 eGFR >=60 mL/min/1.73m 120 Total Cholesterol, Nonfasting <200 mg/dL 177 Triglycerides, Nonfasting <150 mg/dL 335 (H) HDL Cholesterol, Nonfasting >39 mg/dL 40 LDL Cholesterol, Nonfasting <100 mg/dL 70 Non HDL Cholesterol, Nonfasting <130 mg/dL 137 (H) VLDL Cholesterol, Nonfasting <30 mg/dL 67 (H) Total Chol/HDL Ratio, Nonfasting <5.10 mg/dL 4.43 LDL/HDL Ratio, Nonfasting <2.54 mg/dL 1.75 COVID 19 Result See comment Not detected Influenza A PCR Not Detected Not detected Influenza B PCR Not Detected Not detected Hemoglobin A1C 4.3 - 5.6 % 5.4 Estimated Average Glucose mg/dL 108 HISTORIES FAMILY HISTORY Problem Relation Age of Onset Asthma Maternal Grandmother other (MVP [Other]) Mother None Father None Maternal Grandfather Heart Paternal Grandmother Heart Paternal Grandfather None Sister None Brother PAST MEDICAL HISTORY Diagnosis Date Elevated liver function tests 04/10/2018 04/07/18: ALT 97 AST 44 ?fatty liver disease Obesity, Class III, BMI 40-49.9 (morbid obesity) (HCC) 04/07/2018 PAST SURGICAL HISTORY Procedure Laterality Date ADENOIDECTOMY PRIMARY <AGE 11 Adenoidectomy CIRCUMCISION TONSILLECTOMY PRIMARY/SECONDARY <AGE 11 Tonsillectomy Social History Tobacco Use Smoking status: Never Smokeless tobacco: Never Substance Use Topics Alcohol use: Yes Alcohol/week: 1.0 - 2.0 standard drink Types: 1 - 2 Cans of Beer (12oz) per week Comment: Occassional, on the weekends Drug use: No ACTIVE PROBLEM LIST Obesity, Class II, Bmi 35-39.9 Hyperlipidemia With Target Ldl Less Than 130 Current Outpatient Medications Medication Sig Dispense Refill cetirizine hcl(ZYRTEC 10 MG TAB) Take one(1) tablet daily. 0 No current facility-administered medications for this visit. DEPRESSION ASSESSMENT Never done EXAM: BP 124/80 Pulse 93 Resp 16 Ht 188 cm (6' 2") Wt (!) 149.7 kg (330 lb) SpO2 98% BMI 42.37 kg/m Pleasant obese adult man in no acute distress. Alert and oriented all spheres. Normal affect and cognition. Speech normal. No deficits to learning or comprehension. Skin warm, dry, pink to lips and nailbeds. Normal turgor. Respirations regular and unlabored. HEENT: NCAT. No scleral icterus or conjunctival injection. TM's clear. Nose and oropharynx free from injection or lesion. Oral membranes moist and pink. No cervical lymph nodes. Thyroid non-tender, no masses, or enlargement. Carotids pulses 2+/4+ without bruits. No JVD with HOB at 30 degrees. Chest is normal shape. Lungs are clear to all gonzalez with good air exchange through out. HRRR without murmur or gallop. No lifts, heaves, or rubs. Extrem: no clubbing or cyanosis. Edema: none. Extremities are warm and pink with prompt capillary refill. ASSESSMENT/PLAN: 1. Elevated liver enzymes - ICD9: 790.5, ICD10: R74.8 (primary diagnosis) Recheck 3 months for trends. - COMP METABOLIC PANEL 2. Leukocytosis, unspecified type - ICD9: 288.60, ICD10: D72.829 Recheck 3 months - CBC 3. URI, acute - ICD9: 465.9, ICD10: J06.9 - Discussed viral etiology and rationale for treatment. - Symptomatic treatment with prn analgesia - Supportive care with fluids and rest Nigel Storey PA-C documented in this encounter [facility] 09-09-2022 Miscellaneous Notes Pt notified. He verbalized understanding. Mark Thao LPN Can please let patient know that I received his repeat labs. His hepatitis panel was negative. His one liver enzyme continues to be a little elevated, but has come down. I put another order in for him to repeat this in a few months. documented in this encounter [facility] 08-31-2022 Miscellaneous Notes Spoke with pt and information listed below given. Pt verbalizes understanding. Kendra Sampson LPN TC to pt, left message with Doyle for pt to return call to office. Mark Thao LPN Can please let patient know that I received his ultrasounds. The areas that they were able to visualize of the liver was consistent with what we call fatty liver. This happens when fat builds up in the liver. While it is usually not problematic; it can cause cirrhosis (or scarring of the liver) -- which can be problematic. Measures to prevent this include: 1. Weight loss 2. If diabetic, good control of diabetes 3. Good control of cholesterol. Please repeat the bloodwork, as previously instructed. Hallie Fernandez APRN.ALEXANDER documented in this encounter [facility] 08-29-2022 History of Presen t illness Narrative Radiology Service Progress Note PATIENT NAME: Juan Chapa DATE OF SERVICE: August 29, 2022 TIME: 9:36 AM PATIENT IDENTITY VERIFICATION COMPLETED USING TWO (2) IDENTIFIERS: Name and Date of confirmed by patient verbally. FALL SCREENING: Has the patient had 2 falls in the last year or 1 fall with injury or currently using an Ambulatory Assistive Device (Walker, Cane, Wheelchair, Crutches, etc.)? No PATIENT GENDER DATA: Male PATIENT RELEVANT IMPLANT DATA REVIEWED: Not Applicable RADIOLOGY DEPARTMENT: Ultrasound PERIPHERAL IV DATA: Not applicable SIGNED BY: Ana Morel RDMS August 29, 2022 9:36 AM documented in this encounter [facility] 08-23-2022 Instructions Hlalie Fernandez APRN.CNP - 08/23/2022 2:13 PM EST Get the labwork. Home going instructions for Viral Upper Respiratory Infections In General: - Drink lots of fluids - at least one gallon of non-caffeinated liquids per day - Make sure you are eating well - Get plenty of rest - at least 8 hours of sleep per night for adults - ibuprofen 600mg every 8 hours as needed for discomfort - acetaminophen 500mg every 4-6 hours as needed for fever and discomfort. - may alternate ibuprofen and acetaminophen For nasal congestion try: -Vaporizers, Neti Pot, humidifiers, hot showers, and hot fluids help open respiratory and sinus passages. - [place] may offer relief of nasal and head congestion 2-3 times per day as needed. - Sudafed is a safe and effective decongestant for people who do not have high blood pressure. Do not take Sudafed if you have ever been told that you have high blood pressure or hypertension. General dosing guidelines: Immediate release: 60 mg every 4-6 hours; Extended release: 120 mg every 12 hours or 240 mg every 24 hours; maximum: 240 mg/24 hours. For Sore Throat try: - Salt water gargles every 2-3 hours as needed for discomfort - Chloraceptic spray or throat lozenges (Cepacol) For Cough and chest congestion try one of the following: - Mucinex or Robitussin are expectorants. You may take 200-400 mg every 4 hours to a not to exceed 2,400 mg/day OR Extended release tablet: 600-1200 mg every 12 hours, not to exceed 2,400 mg/day - Delsym is a cough suppressant: Oral: 10-20 mg every 4 hours or 30 mg every 6-8 hours OR Extended release: 60 mg twice daily; maximum: 120 mg/day - If you have high blood pressure or hypertension it is safe to take Coricidin HBP Cough & Cold. If you smoke it is advised that you quit smoking. CONTACT YOUR DOCTOR IF: You have fevers for longer than five days or a fever more than 102 degrees You are still sick after 10 days After several days you are getting worse rather than better 4. You develop nausea, vomiting, diarrhea, or a rash. Go to the ER if you - experience pressure or pain in your chest - experience difficulty swallowing - experience difficulty breathing Follow up in 7-10 days or before if your symptoms get worse. documented in this encounter [facility] 08-23-2022 History of Presen t illness Narrative This is a 26 year old male who presents today with: Patient presents with: Acute Visit: Stuffy/runny nose; sore throat; occasional cough; no fever HISTORY OF PRESENT ILLNESS: Juan Chapa is a 26 year old male. Patient presents with: Acute Visit: Stuffy/runny nose; sore throat; occasional cough; no fever Pt presents today with some URI symptoms. Also noted some increased urination. Runny/stuffy nose. Sore throat. Started Monday into Monday. Tried some nasal spray. No fevers/chills. No body aches. No aches. No n/v/d. Refers the other night was having a hard time sleeping and noticed that he was getting up urinating a lot. No pain with urination. Feels as if emptying completely. No trouble with stream. Refers that he normally may get up once nightly, but that night got up about 4 times. Admits that he had increased his fluid intake d/t a ore throat. PAST MEDICAL HISTORY: PAST MEDICAL HISTORY Diagnosis Date Elevated liver function tests 04/10/2018 04/07/18: ALT 97 AST 44 ?fatty liver disease Obesity, Class III, BMI 40-49.9 (morbid obesity) (HCC) 04/07/2018 PAST SURGICAL HISTORY Procedure Laterality Date ADENOIDECTOMY PRIMARY <AGE 12 Adenoidectomy CIRCUMCISION TONSILLECTOMY PRIMARY/SECONDARY <AGE 11 Tonsillectomy ALLERGIES Augmentin [Amoxicillin-Pot Clavulanate], Dust Mites, and Zithromax [Azithromycin] MEDICATIONS Current Outpatient Medications Medication Sig cetirizine hcl(ZYRTEC 10 MG TAB) Take one(1) tablet daily. No current facility-administered medications for this visit. FAMILY HISTORY Problem Relation Age of Onset Asthma Maternal Grandmother other (MVP [Other]) Mother None Father None Maternal Grandfather Heart Paternal Grandmother Heart Paternal Grandfather None Sister None Brother Social History Tobacco Use Smoking status: Never Smokeless tobacco: Never Substance Use Topics Alcohol use: Yes Alcohol/week: 1.0 - 2.0 standard drink Types: 1 - 2 Cans of Beer (12oz) per week Comment: Occassional, on the weekends Drug use: No EXAM: BP 142/98 Pulse 106 Temp 36.3 C (97.3 F) Resp 18 SpO2 98% PHYSICAL EXAM: General Appearance: Well appearing, alert, in no acute distress, well-hydrated, well nourished.. Skin: Skin color, texture, turgor normal, no suspicious rashes or lesions. Head: Normocephalic, no masses, lesions, tenderness or abnormalities. Eyes: Anicteric sclera. Pupils are equally round and reactive to light. Extraocular movements are intact. . Ears: External ears normal, canals clear. Normal TMs bilaterally. Oropharynx: Lips, mucosa, and tongue normal, teeth and gums normal, oropharynx normal. Neck: Supple, no adenopathy Lungs: Lungs clear to auscultation. No wheezing, rhonchi, rales.. Heart: RRR without murmur, gallop, or rubs. No ectopy. Extremities: No deformities, edema, skin discoloration, clubbing or cyanosis. Good capillary refill. . Neurologic: Gait normal. ASSESSMENT/PLAN: 1. Viral upper respiratory tract infection - ICD9: 465.9, ICD10: J06.9 (primary diagnosis) - Discussed viral etiology and rationale for treatment. - Symptomatic treatment with prn analgesia - Supportive care with fluids and rest - The patient may also use OTC cough and cold meds as needed. - COVID WITH FLUA+B, ROUTINE 2. Frequent urination - ICD9: 788.41, ICD10: R35.0 Urine dip w/ microscopic blood. Will send for microscopic and urine culture. Will also get A1C to r/o polyuria secondary to diabetes. - UA DIP, URINE (POC) - HGB A1C - URINE CULTURE - URINALYSIS, WITH MICROSCOPIC 3. Hyperlipidemia with target LDL less than 130 - ICD9: 272.4, ICD10: E78.5 Due for labs. - CBC + DIFF - LIPID PANEL, NONFASTING - COMP METABOLIC PANEL 4. Polyuria - ICD9: 788.42, ICD10: R35.89 As above. - CBC + DIFF - HGB A1C Discussed treatment plan and patient voices understanding. Patient's questions answered appropriately. Medications and potential side effects were discussed and patient voices understanding. Return to the office as scheduled or as needed for worsening/no improvement. Hallie Fernandez APRN.[employer] This note was partially generated using [employer] voice recognition system. Note was reviewed for accuracy. There may be minor misspellings or grammar miscues with [employer] voice recognition. documented in this encounter [facility] 04-10-2018 History of Past i llness Narrative Problem Noted Date Resolved Date Elevated liver function tests 04/10/2018 Overview: 04/07/18: ALT 97 AST 44 ?fatty liver disease Chronic insomnia 04/07/2018 05/27/2019 documented as of this encounter (statuses as of 08/24/2022) [address]18-2018 History of Past illness Narrative* Problem Noted Date Resolved Date Elevated liver function tests 04/10/2018 Overview: 04/07/18: ALT 97 AST 44 ?fatty liver disease Chronic insomnia 04/07/2018 05/27/2019 documented as of this encounter (statuses as of 08/31/2022) [address]18-2018 History of Past illness Narrative* Problem Noted Date Resolved Date Elevated liver function tests 04/10/2018 Overview: 04/07/18: ALT 97 AST 44 ?fatty liver disease Chronic insomnia 04/07/2018 05/27/2019 documented as of this encounter (statuses as of 09/09/2022) [address]18-2018 History of Past illness Narrative* Problem Noted Date Resolved Date Elevated liver function tests 04/10/2018 Overview: 04/07/18: ALT 97 AST 44 ?fatty liver disease Chronic insomnia 04/07/2018 05/27/2019 documented as of this encounter (statuses as of 09/20/2022) [address]18-2018 History of Past illness Narrative* Problem Noted Date Resolved Date Elevated liver function tests 04/10/2018 Overview: 04/07/18: ALT 97 AST 44 ?fatty liver disease Chronic insomnia 04/07/2018 05/27/2019 documented as of this encounter (statuses as of 11/28/2022) [address]18-2018 History of Past illness Narrative* Problem Noted Date Diagnosed Date Resolved Date Elevated liver function tests 04/10/2018 05/27/2019 Overview: 04/07/18: ALT 97 AST 44 ?fatty liver disease Chronic insomnia 04/07/2018 05/27/2019 documented as of this encounter (statuses as of 05/28/2023) [address]18-2018 History of Past illness Narrative* Problem Noted Date Diagnosed Date Resolved Date Elevated liver function tests 04/10/2018 05/27/2019 Overview: 04/07/18: ALT 97 AST 44 ?fatty liver disease Chronic insomnia 04/07/2018 05/27/2019 documented as of this encounter (statuses as of 11/01/2023) [facility] of Past illness Narrative* Problem Noted Date Diagnosed Date Resolved Date Elevated liver function tests 04/10/2018 05/27/2019 Overview: 04/07/18: ALT 97 AST 44 ?fatty liver disease Chronic insomnia 04/07/2018 05/27/2019 documented as of this encounter (statuses as of 11/02/2023) [facility] Diagnosis Viral upper respiratory tract infection- Primary Acute upper respiratory infections of unspecified site Frequent urination Urinary frequency Hyperlipidemia with target LDL less than 130 Other and unspecified hyperlipidemia Polyuria [facility] Diagnosis Elevated liver enzymes- Primary Other nonspecific abnormal serum enzyme levels [facility] Diagnosis Elevated liver enzymes- Primary Other nonspecific abnormal serum enzyme levels Leukocytosis, unspecified type URI, acute Acute upper respiratory infections of unspecified site [facility] Urinary frequency- Primary Nocturia FH: diabetes mellitus Family history of diabetes mellitus URI, acute Acute upper respiratory infections of unspecified site Elevated liver enzymes Other nonspecific abnormal serum enzyme levels [facility] Diagnosis Elevated liver enzymes Other nonspecific abnormal serum enzyme levels [facility] Diagnosis Well adult exam- Primary Routine general medical examination at a health care facility Hyperlipidemia with target LDL less than 130 Other and unspecified hyperlipidemia Adult BMI 40.0-44.9 kg/sq m (HCC) Body Mass Index 40.0-44.9, adult Weight gain Abnormal weight gain [facility] Diagnosis Elevated liver enzymes- Primary Other nonspecific abnormal serum enzyme levels [facility] Diagnosis Elevated liver enzymes- Primary Other nonspecific abnormal serum enzyme levels [facility] Diagnosis Elevated liver enzymes- Primary Other nonspecific abnormal serum enzyme levels Hepatic steatosis Other chronic nonalcoholic liver disease [facility] Diagnosis Elevated liver enzymes- Primary Other nonspecific abnormal serum enzyme levels Hepatic steatosis Other chronic nonalcoholic liver disease [facility] Diagnosis Elevated liver enzymes- Primary Other nonspecific abnormal serum enzyme levels Hepatic steatosis Other chronic nonalcoholic liver disease [facility] Diagnosis Plantar fasciitis- Primary Plantar fascial fibromatosis [facility] Diagnosis Plantar fasciitis Plantar fascial fibromatosis [facility] Diagnosis Plantar fasciitis- Primary Plantar fascial fibromatosis [facility] Diagnosis Plantar fasciitis Plantar fascial fibromatosis [facility] Diagnosis Elevated liver enzymes- Primary Other nonspecific abnormal serum enzyme levels Hepatic steatosis Other chronic nonalcoholic liver disease [facility] Diagnosis Well adult exam- Primary Routine general medical examination at a health care facility Encounter for screening examination for other mental health and behavioral disorders Hyperlipidemia with target LDL less than 130 Other and unspecified hyperlipidemia Class 3 severe obesity with body mass index (BMI) of 45.0 to 49.9 in adult, unspecified obesity type, unspecified whether serious comorbidity present (HCC) Elevated liver enzymes Other nonspecific abnormal serum enzyme levels Screening for depression Elevated blood pressure reading without diagnosis of hypertension documented in this encounter [facility] for referral (narrative)* Diagnostic Procedure Only (Routine) - Closed Specialty Diagnoses / Procedures Referred By Richa martinez Referred To Contact [facility] Diagnoses Elevated liver enzymes Procedures US ABD RT UPPER QUADRANT US ABDOMINAL REAL TIME W/IMAGE LIMITED Hallie Fernandez APRN.CNP [address] [place] [address] [place] [address] Referral ID Status Reason Start Date Expiration Date V isits Requested Visits Authorized [id number] Closed Auto-Generate d Referral 08/24/2022 09/23/2023 1 1 [facility] for referral (narrative)* Outpatient Procedure (Routine) - Pending Review Specialty Diagnoses / Procedures Referred By Richa martinez Referred To Contact [facility] Diagnoses Elevated liver enzymes Hepatic steatosis Procedures DDI VIBRATION CONTROLLED TRANSIENT ELASTOGRAPHY (VCTE) LIVER ELASTOGRAPHY W/O IMAG W/I&R Itzel Kidd APRN.[employer]ER [address] [place] [address] [facility] [address] [place] [address] Referral ID Status Reason Start Date Expiration Date Visits Requested Visits Authorized [id number] Pending Review Auto-Generat ed Referral 12/12/2023 12/11/2024 1 1 [facility] for visit Narrative* Diagnostic Procedure Only (Routine) - Closed Specialty Diagnoses / Procedures Referred By Contac t Referred To Contact XR IMAGING Diagnoses Plantar fasciitis Procedures XR FOOT GENERAL 3V AP/LAT/OBL LEFT RADEX FOOT COMPLETE MINIMUM 3 VIEWS Hallie Fernandez APRN.[employer]ER [address] [place] [address] [place] [address] Referral ID Status Reason Start Date Expiration Date V isits Requested Visits Authorized [id number] Closed Auto-Generate d Referral 05/28/2024 06/27/2025 1 1 [facility] Reason for Referral Specialty Diagnoses / Procedures Referred By Contac t Referred To Contact Diagnoses Elevated liver enzymes Procedures CONSULT TO HEPATOLOGY OFFICE/OUTPATIENT [facility] 60 MINUTES Quentin Mcleod MD [address] [place] [address] Referral ID Status Reason Start Date Expiration Date Visits Requested Visits Authorized [id number] Authorized PCP Requested Referral 11/16/2023 11/15/2024 1 1 Specialty Diagnoses / Procedures Referred By Contac t Referred To Contact Podiatry Diagnoses Plantar fasciitis Procedures CONSULT TO PODIATRY OFFICE/OUTPATIENT [facility] 60 MINUTES Hallie Fernandez APRN.[employer]ER [address] [place] [address] Referral ID Status Reason Start Date Expiration Date Visits Requested Visits Authorized [id number] Authorized PCP Requested Referral 05/28/2024 05/28/2025 1 1 Specialty Diagnoses / Procedures Referred By Contac t Referred To Contact XR IMAGING Diagnoses Plantar fasciitis Procedures XR FOOT GENERAL 3V AP/LAT/OBL LEFT RADEX FOOT COMPLETE MINIMUM 3 VIEWS Hallie Fernandez APRN.[employer]ER [address] [facility] [address] [place] [address] Referral ID Status Reason Start Date Expiration Date V isits Requested Visits Authorized [id number] Closed Auto-Generate d Referral 05/28/2024 06/27/2025 1 1 Summary Purpose Family History No Family History Records FoundNo Family History Records Found [facility] Directives No Advanced Directives Records FoundNo Advanced Directives Records Found Additional Source Comments Source Comments (unrecognize d section and content) In the event this informatio n is protected by the Federal Confidentiality of Alcohol and Drug Abuse Patient Records regulations: The Federal rules restrict any use of the information to criminally investigate or prosecute any alcohol or drug abuse patient.[facility] CenterIn the event this information is protected by the Federal Confidentiality of Alcohol and Drug Abuse Patient Records regulations: The Federal rules restrict any use of the information to criminally investigate or prosecute any alcohol or drug abuse patient.[facility] CenterIn the event this information is protected by the Federal Confidentiality of Alcohol and Drug Abuse Patient Records regulations: The Federal rules restrict any use of the information to criminally investigate or prosecute any alcohol or drug abuse patient.[facility] CenterIn the event this information is protected by the Federal Confidentiality of Alcohol and Drug Abuse Patient Records regulations: The Federal rules restrict any use of the information to criminally investigate or prosecute any alcohol or drug abuse patient.[facility] CenterIn the event this information is protected by the Federal Confidentiality of Alcohol and Drug Abuse Patient Records regulations: The Federal rules restrict any use of the information to criminally investigate or prosecute any alcohol or drug abuse patient.[facility] CenterIn the event this information is protected by the Federal Confidentiality of Alcohol and Drug Abuse Patient Records regulations: The Federal rules restrict any use of the information to criminally investigate or prosecute any alcohol or drug abuse patient.[facility] CenterIn the event this information is protected by the Federal Confidentiality of Alcohol and Drug Abuse Patient Records regulations: The Federal rules restrict any use of the information to criminally investigate or prosecute any alcohol or drug abuse patient.[facility] CenterIn the event this information is protected by the Federal Confidentiality of Alcohol and Drug Abuse Patient Records regulations: The Federal rules restrict any use of the information to criminally investigate or prosecute any alcohol or drug abuse patient.[facility] CenterIn the event this information is protected by the Federal Confidentiality of Alcohol and Drug Abuse Patient Records regulations: The Federal rules restrict any use of the information to criminally investigate or prosecute any alcohol or drug abuse patient.[facility] CenterIn the event this information is protected by the Federal Confidentiality of Alcohol and Drug Abuse Patient Records regulations: The Federal rules restrict any use of the information to criminally investigate or prosecute any alcohol or drug abuse patient.[facility] CenterIn the event this information is protected by the Federal Confidentiality of Alcohol and Drug Abuse Patient Records regulations: The Federal rules restrict any use of the information to criminally investigate or prosecute any alcohol or drug abuse patient.[facility] CenterIn the event this information is protected by the Federal Confidentiality of Alcohol and Drug Abuse Patient Records regulations: The Federal rules restrict any use of the information to criminally investigate or prosecute any alcohol or drug abuse patient.[facility] CenterIn the event this information is protected by the Federal Confidentiality of Alcohol and Drug Abuse Patient Records regulations: The Federal rules restrict any use of the information to criminally investigate or prosecute any alcohol or drug abuse patient.[facility] CenterIn the event this information is protected by the Federal Confidentiality of Alcohol and Drug Abuse Patient Records regulations: The Federal rules restrict any use of the information to criminally investigate or prosecute any alcohol or drug abuse patient.[facility] CenterIn the event this information is protected by the Federal Confidentiality of Alcohol and Drug Abuse Patient Records regulations: The Federal rules restrict any use of the information to criminally investigate or prosecute any alcohol or drug abuse patient.[facility] CenterIn the event this information is protected by the Federal Confidentiality of Alcohol and Drug Abuse Patient Records regulations: The Federal rules restrict any use of the information to criminally investigate or prosecute any alcohol or drug abuse patient.[facility] CenterIn the event this information is protected by the Federal Confidentiality of Alcohol and Drug Abuse Patient Records regulations: The Federal rules restrict any use of the information to criminally investigate or prosecute any alcohol or drug abuse patient.[facility] CenterIn the event this information is protected by the Federal Confidentiality of Alcohol and Drug Abuse Patient Records regulations: The Federal rules restrict any use of the information to criminally investigate or prosecute any alcohol or drug abuse patient.[facility] CenterIn the event this information is protected by the Federal Confidentiality of Alcohol and Drug Abuse Patient Records regulations: The Federal rules restrict any use of the information to criminally investigate or prosecute any alcohol or drug abuse patient.[facility] CenterIn the event this information is protected by the Federal Confidentiality of Alcohol and Drug Abuse Patient Records regulations: The Federal rules restrict any use of the information to criminally investigate or prosecute any alcohol or drug abuse patient.[facility] CenterIn the event this information is protected by the Federal Confidentiality of Alcohol and Drug Abuse Patient Records regulations: The Federal rules restrict any use of the information to criminally investigate or prosecute any alcohol or drug abuse patient.[facility] CenterIn the event this information is protected by the Federal Confidentiality of Alcohol and Drug Abuse Patient Records regulations: The Federal rules restrict any use of the information to criminally investigate or prosecute any alcohol or drug abuse patient.[facility] Reason for Visit (unrecogniz ed section and content) Reason Comments Acute Visit Stuffy/runny nose; s ore throat; occasional cough; no fever Reason Comments Results Reason Comments Cough Reason Comments Urinary Frequency Nasal Congestion Sleep Problem Reason Comments Radiology US Specialty Diagnoses / Procedures Referred By Contac t Referred To Contact US IMAGING Diagnoses Elevated liver enzymes Procedures US ABD RT UPPER QUADRANT US ABDOMINAL REAL TIME W/IMAGE LIMITED Hallie Fernandez APRN.[employer] [address] [place] [address] [place] [address] Referral ID Status Reason Start Date Expiration Date V isits Requested Visits Authorized [id number] Closed Auto-Generate d Referral 08/24/2022 09/23/2023 1 1 Reason Comments Physical Reason Comments Results Reason Comments Elevated Liver Enzymes Specialty Diagnoses / Procedures Referred By Contac t Referred To Contact Diagnoses Elevated liver enzymes Procedures CONSULT TO HEPATOLOGY OFFICE/OUTPATIENT NEW HIGH MDM 60 MINUTES Quentin Mcleod MD [address] [place] [address] Referral ID Status Reason Start Date Expiration Date V isits Requested Visits Authorized [id number] Closed PCP Requested Referral 11/16/2023 11/15/2024 1 1 Reason Comments Fibroscan Specialty Diagnoses / Procedures Referred By Contac t Referred To Contact [facility] Diagnoses Elevated liver enzymes Hepatic steatosis Procedures DDI VIBRATION CONTROLLED TRANSIENT ELASTOGRAPHY (VCTE) LIVER ELASTOGRAPHY W/O IMAG W/I&R Itzel Kidd TRANSPORTATION DEPARTMENT HEAD.[employer] [address] [place] [address] [facility] [address] [place] [address] Referral ID Status Reason Start Date Expiration Date V isits Requested Visits Authorized [id number] Closed Auto-Generate d Referral 12/13/2023 07/23/2024 1 1 Reason Comments Acute Visit L foot pain x couple days; no known injury Reason Comments Recheck Follow up- L foot pa in, continuing Reason Comments New Pain Numbness Specialty Diagnoses / Procedures Referred By Contac t Referred To Contact Podiatry Diagnoses Plantar fasciitis Procedures CONSULT TO PODIATRY OFFICE/OUTPATIENT NEW [facility] MDM 60 MINUTES Hallie Fernandez APRN.[employer] [address] [place] [address] Referral ID Status Reason Start Date Expiration Date V isits Requested Visits Authorized [id number] Closed PCP Requested Referral 05/28/2024 05/28/2025 1 1 Reason Comments Elevated LFT's Labs 12/14/23 Reason Comments Switch Pharmacies Care Teams (unrecognized sec tion and content) Network Cabler Relationship Specialty Start Date End Date Quentin Mlceod MD [address] [place], [place] [id number] PCP - General Family Medicine 04/07/21 Network Cabler Relationship Specialty Start Date End Date Quentin Mcleod MD [address] [place], [place] [address] PCP - General Family Medicine 04/07/21 Network Cabler Relationship Specialty Start Date End Date Quentin Mcleod MD [address] [place], [place] [address] PCP - General Family Medicine 04/07/21 Network Cabler Relationship Specialty Start Date End Date Quentin Mcleod MD [address] [place], [place] [id number] PCP - General Family Medicine 04/07/21 Network Cabler Relationship Specialty Start Date End Date Quentin Mcleod MD [address] [place], [place] [id number] PCP - General Family Medicine 04/07/21 Network Cabler Relationship Specialty Start Date End Date Quentin Mcleod MD [address] [place], [place] [id number] PCP - General Family Medicine 04/07/21 Network Cabler Relationship Specialty Start Date End Date Quentin Mcleod MD [address] [place], [place] [address] PCP - General Family Medicine 04/07/21 Network Cabler Relationship Specialty Start Date End Date Quentin Mcleod MD [address] [place] [address] PCP - General Family Medicine 04/07/21 Network Cabler Relationship Specialty Start Date End Date Quentin Mcleod MD [address] [place] [address] PCP - General Family Medicine 04/07/21 Network Cabler Relationship Specialty Start Date End Date Quentin Mcleod MD [address] [place] [address] PCP - General Family Medicine 04/07/21 Network Cabler Relationship Specialty Start Date End Date Quentin Mcleod MD [address] [place] [address] PCP - General Family Medicine 04/07/21 Network Cabler Relationship Specialty Start Date End Date Quentin Mcleod MD [address] [place] [address] PCP - General Family Medicine 04/07/21 Network Cabler Relationship Specialty Start Date End Date Quentin Mcleod MD [address] [place] [address] PCP - General Family Medicine 04/07/21 Network Cabler Relationship Specialty Start Date End Date Quentin Mcleod MD [address] [place], [place] [id number] PCP - General Family Medicine 04/07/21 Network Cabler Relationship Specialty Start Date End Date Quentin Mcleod MD [address] [place] [address] PCP - General Family Medicine 04/07/21 Network Cabler Relationship Specialty Start Date End Date Quentin Mcleod MD [address] [place] [address] PCP - General Family Medicine 04/07/21 Network Cabler Relationship Specialty Start Date End Date Quentin Mcleod MD [address] [place] [address] PCP - General Family Medicine 04/07/21 Hallie Fernandez APRN.[employer] [address] [place] [address] [facility]visor [facility] 07/01/24 Ariela Villafuerte TRANSPORTATION DEPARTMENT HEAD.[employer] [address] [place] [address] Supervisor [facility] 07[facility]01/24 Network Cabler Relationship Specialty Start Date End Date Quentin Mcleod MD [address] [place] [address] PCP - General Family Medicine 04/07/21 Hallie Fernandez TRANSPORTATION DEPARTMENT HEAD.[employer] [address] [place] [address] Supervisor [facility] 07/01/24 Ariela Villafuerte TRANSPORTATION DEPARTMENT HEAD.[employer] [address] [place] [address] [facility] Medicine 07/01/24 Network Cabler Relationship Specialty Start Date End Date Quentin Mcleod MD [address] [place] [address] PCP - General Family Medicine 04/07/21 Hallie Fernandez APRN.[employer] [address] [place], [place] [address] [facility] 07/01/24 Ariela Villafuerte APRN.[employer] [address] [facility] [place], [place] [address] Former[facility] 07/01/24 Network Cabler Relationship Specialty Start Date End Date Quentin Mcleod MD [address] [place], [place] [id number] PCP - General Family Medicine 04/07/21 Hallie Fernandez APRN.[employer] [address] [place], [place] [id number] [facility] 07/01/24 Ariela Villafuerte APRN.[employer] [address] [place], [place] [id number] [facility] 07/01/24 (unrecognized sect ion and content) No Status Records FoundNo Status Records Found INFORMATION SOURCE (unrecogn ized section and content) DATE CREATED AUTHOR 07/22/2024 [facility] Ce ntshirlene DATE CREATED AUTHOR AUTHOR'S TIA ATSUKHI 01/11/2025 [facility] FOR RECORDS PERTAINING TO PATIENTS WHO ARE OR HAVE BEEN ENROLLED IN A CHEMICAL DEPENDENCY/SUBSTANCEABUSE PROGRAM, SOME INFORMATION MAY BE OMITTED. This clinical summary was aggregated from multiple sources. Caution should be exercised in using it in the provision of clinical care. This summary normalizes information from multiple sources, and as a consequence, information in this document may materially change the coding, format and clinical context of patient data. In addition, data may be omitted in some cases. CLINICAL DECISIONS SHOULD BE BASED ON THE PRIMARY CLINICAL RECORDS. [employer] provides no warranty or guarantee of the accuracy or completeness of information in this document.
== END 2025-06-18 14:23 | disposition home or self-care (01) ==
LOC: ED 14:11
PROVIDERS: Emergency Provider Emergency Medicine; PCP Family Medicine; Visit Provider Emergency Medicine
DX: T23.021A Burn of unspecified degree of single right finger (nail) except thumb, initial encounter (principal); Z79.899 Other long term (current) drug therapy; X58.XXXA Exposure to other specified factors, initial encounter; Z23 Encounter for immunization
CPT/HCPCS: 90471; 90715; 99282